=== PATIENT | female | born 1970 | race Caucasian/White ===

== ENCOUNTER 2018-08-07 10:20 | Emergency (ER) | payer BC ==
[2018-08-07 11:24] LABS: Urine Blood TRACE (NEG); Urine Glucose 2+ (NEG); Urine Protein NEGATIVE (NEG)
[2018-08-07] MEDS ORDERED: ONDANSETRON 4 MG/2 ML VIAL ONE (11:30)
[2018-08-07 11:34] LABS: Absolute Monocytes 0.6 K/uL (0.1-1.3); Absolute Neutrophil 5.8 K/uL (1.8-8.0); Basophils % 0.5 % (0-1.3); Eosinophils % 2.8 % (0-4.4); Hematocrit 41.2 % (36.0-45.0); Monocytes % 7.1 % (3.3-12.3); RBC Red Blood Cell Count 4.63 M/uL (3.86-4.86)
[2018-08-07 11:49] LABS: Urine Bacteria >50 /HPF (<20); Urine Culture Reflex Order REFLEXED
[2018-08-07 12:01] LABS: Albumin 3.8 g/dL (3.4-5.0); Bilirubin Total 0.5 mg/dL (0.2-1.0); Potassium 4.2 mmol/L (3.5-5.1); Protein, Total 7.6 g/dL (6.4-8.2)
[2018-08-07] MEDS ORDERED: CEFTRIAXONE/SWI 1gm 1 GM/10 ML SYR ONE (12:10)
--- NOTE | 2018-08-07 12:28 | EDPHYS ---
Physician Documentation [facility] Name: Vanessa Reynolds Age: 48 yrs Sex: Female : 1970 Arrival Date: 08/07/2018 Time: 10:24 Bed 17 Private MD: ED Physician Lars Garcia HPI: 08/07 12:21 This 48 yrs old Female presents to ER via Ambulatory with complaints of ps1 Dizziness, High Blood Sugar. 12:21 patient has a 3 day history of lightheadedness, congestion, and generalized fatigue. ps1 She states that she feels lightheaded when her blood sugar is elevated and her blood sugar was \R\320 this am. She is on metformin and januvia. Symptoms are not positional but just feels like she is in slow motion. Denies fever. Additionally has nausea. . 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 - Social history:: Smoking status: Patient/guardian denies using tobacco. - Ebola Screening: : Patient negative for fever greater than or equal to 101.5 degrees Fahrenheit, and additional compatible Ebola Virus Disease symptoms Patient denies exposure to infectious person Patient denies travel to an Ebola-affected area in the 21 days before illness onset No symptoms or risks identified at this time. ROS: 12:21 Eyes: Negative for injury, pain, redness, and discharge, Cardiovascular: Negative for ps1 chest pain, palpitations, and edema, Respiratory: Negative for shortness of breath, cough, wheezing, and pleuritic chest pain, Abdomen/GI: Negative for abdominal pain, nausea, vomiting, diarrhea, and constipation, MS/Extremity: Negative for injury and deformity, Skin: Negative for injury, rash, and discoloration, Neuro: Negative for headache, weakness, numbness, tingling, and seizure, Psych: Negative for depression, anxiety, suicide ideation, homicidal ideation, and hallucinations. 12:21 Constitutional: Positive for body aches, fatigue, malaise. Exam: 12:21 Constitutional: This is a well developed, well nourished patient who is awake, alert, ps1 and in no acute distress. Head/Face: Normocephalic, atraumatic. Eyes: Pupils equal round and reactive to light, extra-ocular motions intact. Lids and lashes normal. Conjunctiva and sclera are non-icteric and not injected. Chest/axilla: Normal chest wall appearance and motion. Nontender with no deformity. No lesions are appreciated. Cardiovascular: Regular rate and rhythm. No gallops, murmurs, or rubs. Normal PMI, no JVD. No pulse deficits. Respiratory: Lungs have equal breath sounds bilaterally, clear to auscultation and percussion. No rales, rhonchi or wheezes noted. No increased work of breathing, no retractions or nasal flaring. Abdomen/GI: Soft, non-tender, with normal bowel sounds. No distension or tympany. No guarding or rebound. No evidence of tenderness throughout. Skin: Warm, dry with normal turgor. Normal color with no rashes, no lesions, and no evidence of cellulitis. MS/ Extremity: Pulses equal, no cyanosis. Neurovascular intact. Full, normal range of motion. Neuro: Awake and alert, GCS 15, oriented to person, place, time, and situation. Cranial nerves II-XII grossly intact. Sensory grossly intact. HINTS exam. Mild peripheral gaze evoked nystagmus to left. No catch up saccade. No dysconjugate gaze. Vital Signs: 10:34 Weight 74.39 kg; Height 5 ft. 4 in. (162.56 cm); Pain 0/10; sg 10:34 Pulse 79; Resp 17; Temp 98.9; Pulse Ox 100% ; sg 10:36 BP 139 / 86; sg 12:45 BP 135 / 85; Pulse 75; Resp 16 S; Pulse Ox 99% on R/A; jl7 10:34 Body Mass Index 28.15 (74.39 kg, 162.56 cm) sg MDM: 11:00 Patient medically screened. ps1 12:30 Data reviewed: vital signs, nurses notes, lab test result(s), and as a result, I will ps1 discharge patient. 08/07 11:01 Order name: Flu; Complete Time: 11:49 ps1 08/07 11:01 Order name: CBC with Diff; Complete Time: 11:49 ps1 08/07 11:01 Order name: CMP; Complete Time: 12:05 ps1 08/07 11:19 Order name: Urine Dipstick--Ancillary (enter results); Complete Time: 11:29 bd 08/07 11:19 Order name: Urine --Ancillary (enter results); Complete Time: 11:29 bd 08/07 11:25 Order name: Urine Microscopic Only; Complete Time: 11:50 jl7 08/07 11:01 Order name: Urine Dipstick-Ancillary (obtain specimen); Complete Time: 11:18 ps1 08/07 11:20 Order name: Urine Test (obtain specimen); Complete Time: 11:20 bd 08/07 11:54 Order name: Urine Culture EDMS Administered Medications: 11:25 Drug: Zofran 4 mg Route: IVP; Site: right antecubital; jl7 12:00 Follow up: Response: No adverse reaction; Nausea is decreased jl7 12:04 Not Given (Wrong pharmacy order): Rocephin - (cefTRIAXone) 1 grams IVPB once over 30 jl7 mins; (mix in 50 mL NS) 12:04 Drug: Rocephin 1 grams Route: IV; Rate: calculated rate; Site: right antecubital; jl7 12:07 Follow up: Response: No adverse reaction; IV Status: Completed infusion jl7 Point of Care Testing: Blood Glucose: 10:43 Blood Glucose: 322 mg/dL; iw Ranges: Critical Glucose Levels:Adult <50 mg/dl or >400 mg/dl <40 mg/dl or >180 mg/dl Disposition: 08/07/18 12:28 Discharged to Home. Impression: Hyperglycemia, unspecified, Acute cystitis. - Condition is Stable. - Discharge Instructions: Hyperglycemia, Urinary Tract Infection, Adult. - Prescriptions for Keflex 500 mg Oral Capsule - take 1 capsule by ORAL route every 8 hours for 10 days; 30 capsule. Zofran 4 mg Oral Tablet - take 1 tablet by ORAL route every 12 hours As needed; 20 tablet. - Medication Reconciliation Form, Thank You Letter, Antibiotic Education, Prescription Opioid Use form. - Follow up: Emergency Department; When: As needed; Reason: Fever > 102 F, Worsening of condition. Follow up: Private Physician; When: As needed; Reason: Worsening of condition, Recheck today's complaints, Continuance of care, Re-evaluation by your physician. - Problem is new. - Symptoms have improved. Signatures: Dispatcher [employer] EDMS fransisco TainaKong Funez, RN RN sg Maximo Medrano RN RN jl7 Lars Garcia MD MD ps1 Corrections: (The following items were deleted from the chart) 12:28 12:28 08/07/2018 12:28 Discharged to Home. Impression: Hyperglycemia, unspecified; ps1 Acute cystitis. Condition is Stable. Forms are Medication Reconciliation Form, Thank You Letter, Antibiotic Education, Prescription Opioid Use. Follow up: Emergency Department; When: As needed; Reason: Fever > 102 F, Worsening of condition. Follow up: Private Physician; When: As needed; Reason: Worsening of condition, Recheck today's complaints, Continuance of care, Re-evaluation by your physician. ps1 12:46 12:28 08/07/2018 12:28 Discharged to Home. Impression: Hyperglycemia, unspecified; jl7 Acute cystitis. Condition is Stable. Forms are Medication Reconciliation Form, Thank You Letter, Antibiotic Education, Prescription Opioid Use. Follow up: Emergency Department; When: As needed; Reason: Fever > 102 F, Worsening of condition. Follow up: Private Physician; When: As needed; Reason: Worsening of condition, Recheck today's complaints, Continuance of care, Re-evaluation by your physician. Problem is new. Symptoms have improved. ps1
--- NOTE | 2018-08-07 12:28 | ER ---
Nurse's Notes [facility] Name: Vanessa Reynolds Age: 48 yrs Sex: Female : 1970 Arrival Date: 08/07/2018 Time: 10:24 Bed 17 Private MD: Diagnosis: Hyperglycemia, unspecified;Acute cystitis Presentation: 08/07 10:32 Presenting complaint: Patient states: Dizziness, and high blood sugar at home, 141 FSBG sg reported prior to arrival,reports taking her metformin this morning as prescribed, drank some OJ because i was coming down with something. Transition of care: patient was not received from another setting of care. Onset of symptoms was August 07, 2018. Risk Assessment: Do you want to hurt yourself or someone else? Patient reports no desire to harm self or others. Initial Sepsis Screen: Does the patient meet any 2 criteria? No. Patient's initial sepsis screen is negative. Does the patient have a suspected source of infection? No. Patient's initial sepsis screen is negative. Care prior to arrival: None. 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 - Social history:: Smoking status: Patient/guardian denies using tobacco. - Ebola Screening: : Patient negative for fever greater than or equal to 101.5 degrees Fahrenheit, and additional compatible Ebola Virus Disease symptoms Patient denies exposure to infectious person Patient denies travel to an Ebola-affected area in the 21 days before illness onset No symptoms or risks identified at this time. Screenin:10 Abuse screen: Denies threats or abuse. Denies injuries from another. Nutritional jl7 screening: No deficits noted. Tuberculosis screening: No symptoms or risk factors identified. Fall Risk IV access (20 points). Total Hatfield Fall Scale indicates No Risk (0-24 pts). Assessment: 11:10 General: Appears in no apparent distress. uncomfortable, Behavior is calm, cooperative, jl7 appropriate for age. Pain: Denies pain. Neuro: Level of Consciousness is awake, alert, obeys commands, Oriented to person, place, time, situation. Cardiovascular: Patient's skin is warm and dry. Respiratory: Airway is patent Respiratory effort is even, unlabored, Respiratory pattern is regular, symmetrical. GI: Reports nausea. : No signs and/or symptoms were reported regarding the genitourinary system. EENT: No signs and/or symptoms were reported regarding the EENT system. Derm: Skin is pink, warm \T\ dry. 12:00 Reassessment: Patient appears in no apparent distress at this time. Patient and/or jl7 family updated on plan of care and expected duration. Pain level reassessed. Patient is alert, oriented x 3, equal unlabored respirations, skin warm/dry/pink. Vital Signs: 10:34 Weight 74.39 kg; Height 5 ft. 4 in. (162.56 cm); Pain 0/10; sg 10:34 Pulse 79; Resp 17; Temp 98.9; Pulse Ox 100% ; sg 10:36 BP 139 / 86; sg 12:45 BP 135 / 85; Pulse 75; Resp 16 S; Pulse Ox 99% on R/A; jl7 10:34 Body Mass Index 28.15 (74.39 kg, 162.56 cm) sg ED Course: 10:24 Patient arrived in ED. mr 10:32 Arm band placed on. sg 10:33 Triage completed. sg 10:39 Lars Garcia MD is Attending Physician. ps1 10:50 Maximo Medrano RN is Primary Nurse. jl7 11:10 Patient has correct armband on for positive identification. Bed in low position. Call jl7 light in reach. Side rails up X 1. Pulse ox on. NIBP on. 11:10 Initial lab(s) drawn, by me, sent to lab. Urine collected: clean catch specimen, clear. jl7 Inserted saline lock: 20 gauge in right antecubital area, using aseptic technique. Blood collected. 12:45 No provider procedures requiring assistance completed. IV discontinued, intact, jl7 bleeding controlled, No redness/swelling at site. Pressure dressing applied. Administered Medications: 11:25 Drug: Zofran 4 mg Route: IVP; Site: right antecubital; jl7 12:00 Follow up: Response: No adverse reaction; Nausea is decreased jl7 12:04 Not Given (Wrong pharmacy order): Rocephin - (cefTRIAXone) 1 grams IVPB once over 30 jl7 mins; (mix in 50 mL NS) 12:04 Drug: Rocephin 1 grams Route: IV; Rate: calculated rate; Site: right antecubital; jl7 12:07 Follow up: Response: No adverse reaction; IV Status: Completed infusion jl7 Point of Care Testing: Blood Glucose: 10:43 Blood Glucose: 322 mg/dL; iw Ranges: Outcome: 12:28 Discharge ordered by . ps1 12:45 Discharged to home ambulatory. jl7 12:45 Condition: stable 12:45 Discharge instructions given to patient, family, Instructed on discharge instructions, follow up and referral plans. medication usage, Demonstrated understanding of instructions, follow-up care, medications, Prescriptions given X 2. 12:46 Patient left the ED. jl7 Addendum: 08/11/2018 07:50 Addendum: Culture Results: Positive urine culture. Phone call Attempt #[phone], unable a a5 to leave a voicemail. 08:30 Addendum: Culture Results: Prescription called-in to pharmacy of choice. to [facility] in [place], [place], Macrobid 100 mg PO BID x 10 days, stop Keflex per May Haji NP. Signatures: Kong Mcneil RN Nathaly Cochran Oanh Reynolds, RN RONEN iw Meryl Lechuga RN RN aa5 Maximo Medrano RN RN jl7 Lars Garcia MD MD ps1
[2018-08-07 12:53] VITALS: TEMP 98.9
[2018-08-07 12:56] VITALS: BP 135/85; O2SAT 99
== END 2018-08-07 12:46 | disposition home or self-care (01) ==
LOC: ER 10:20
DX: E11.65 Type 2 diabetes mellitus with hyperglycemia (principal); N30.00 Acute cystitis without hematuria; Z79.84 Long term (current) use of oral hypoglycemic drugs
CPT/HCPCS: 36415; 80053; 81003; 81015; 81025; 82962; 85025; 87077; 87086; 87088; 87186; 87804; 96374; 96375; 99284; J0696; J2405

== ENCOUNTER 2019-09-18 11:56 | Emergency (ER) | payer BC ==
[2019-09-18] MEDS ORDERED: NA CHLORIDE 0.9% 1,000 ML ONE (14:04)
[2019-09-18] MEDS ORDERED: FENTANYL CITR 100 MCG/2 ML ONE ×2 (14:05→14:42)
[2019-09-18] MEDS ORDERED: ONDANSETRON 4 MG/2 ML VIAL ONE (14:05)
[2019-09-18 14:20] LABS: Absolute Lymphocytes (CBC) 2.1 K/uL (0.7-4.9); Basophils % 0.5 % (0-1.3); Hematocrit 35.2 % (36.0-45.0); Lymphocytes % 27.9 % (15.3-44.8); RBC Red Blood Cell Count 3.94 M/uL (3.86-4.86)
--- NOTE | 2019-09-18 14:21 | RAD REPORT ---
EXAM DESCRIPTION: CT - Abdomen Pelvis Wo Contrast - 09/18/2019 2:10 pm CLINICAL HISTORY: abd pain COMPARISON: No comparisons TECHNIQUE: Axial [address] imaging of the abdomen and pelvis was performed without IV contrast. No IV contrast was given because of allergy, abnormal renal function, patient refusal or physician re quest. No oral contrast administered. All CT scans are performed using dose optimization technique as appropriate and may include automated exposure control or mA/KV adjustment according to patient size. FINDINGS: No suspicious findings in the lung bases. The liver, spleen and pancreas show no suspicious findings on non-contrast imaging. Cholecystectomy c lips are present. No biliary tree dilatation. No hydronephrosis or suspicious renal mass. No significant adrenal finding. Isodense renal masses an d pyelonephritis cannot be excluded in the absence of IV contrast. The urinary bladder is without sig nificant finding. Uterus is slightly lobulated probably due to small fibroids. No worrisome uterine f inding. No suspicious ovarian finding. No dilated bowel loops or bowel wall thickening. Moderate stool volume seen through most of the colon . No active colon process seen. Within the peritoneal and retroperitoneal spaces there is no hematoma , mass, abscess or other suspicious finding. No peritoneal or retroperitoneal free air. Postsurgical changes are present at the lumbosacral junction. A few punctate air densities are presen t in the subcutaneous fatty tissues of the lower abdomen. There is a 7 centimeter low-density mass in the subcutaneous fatty tissues between the skin and abdominal wall. Attenuation value is 7 Hounsfiel d units. There is no air within this collection. Postoperative seroma is most likely. A secondarily i nfected seroma is possible. Congested or edematous fat is seen in the lower abdomen. Similar fluid or low-density collections are present post oral lateral lumbosacral spine both measuring approximately 4 cm. Again, no air within these collections. IMPRESSION: A 7 centimeter fluid or low-density collection is present in the infraumbilical subcutan eous fatty tissues at the surgical entry site. A few punctate air densities are present in the subcut aneous fat on the superior margin of this collection. The 7 centimeter collection is most likely a postoperative seroma. Secondary infection of the seroma cannot be excluded. Similar density 4 centimeter collections are present posterior lateral aspect of the lumbosacral spin e in the subacute fatty tissues. Postoperative seromas are most likely as well. Again there is no air within either of these collections. Within the peritoneal and retroperitoneal spaces there is no abscess, air, hematoma or other concerni ng finding. Full assessment is limited is the absence of IV contrast.
[2019-09-18 14:32] LABS: Potassium 4.5 mmol/L (3.5-5.1)
--- NOTE | 2019-09-18 16:28 | EDPHYS ---
Physician Documentation [facility] Name: Vanessa Young Age: 49 yrs Sex: Female : 1970 Arrival Date: 09/18/2019 Time: 11:59 Bed 8 Private MD: ED Physician Nguyễn Cortes HPI: 09/18 13:36 This 49 yrs old Female presents to ER via Wheelchair with complaints of kdr Incisional Drainage, Dizziness, Nausea. 16:57 The patient had back surgery last week and now has mild abdominal pain with drainage kdr from the anterior abdominal incision. She denies fever, chills, nausea or vomiting. Onset: The symptoms/episode began/occurred gradually, 2 day(s) ago. Severity of symptoms: At their worst the symptoms were mild in the emergency department the symptoms are unchanged. The patient has not experienced similar symptoms in the past. The patient has been recently seen by a physician: last week for the surgery. 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 - Coronavirus screen:: The patient has NOT traveled to [place] in the past 14 days. Proceed with normal triage process as indicated. - Social history:: Smoking status: Patient denies any tobacco usage or history of. - Ebola Screening: : Patient negative for fever greater than or equal to 101.5 degrees Fahrenheit, and additional compatible Ebola Virus Disease symptoms Patient denies exposure to infectious person Patient denies travel to an Ebola-affected area in the 21 days before illness onset No symptoms or risks identified at this time. ROS: 16:57 Constitutional: Negative for fever, chills, and weight loss, Eyes: Negative for injury, kdr pain, redness, and discharge, ENT: Negative for injury, pain, and discharge, Neck: Negative for injury, pain, and swelling, Cardiovascular: Negative for chest pain, palpitations, and edema, Respiratory: Negative for shortness of breath, cough, wheezing, and pleuritic chest pain, : Negative for injury, bleeding, discharge, and swelling, MS/Extremity: Negative for injury and deformity, Skin: Negative for injury, rash, and discoloration, Neuro: Negative for headache, weakness, numbness, tingling, and seizure activity. Psych: Negative for depression, anxiety, suicide ideation, homicidal ideation, and hallucinations, Allergy/Immunology: Negative for hives, rash, and allergies, Endocrine: Negative for neck swelling, polydipsia, polyuria, polyphagia, and marked weight changes, Hematologic/Lymphatic: Negative for swollen nodes, abnormal bleeding, and unusual bruising. 16:57 Abdomen/GI: Positive for abdominal pain, The patient has a midline incision that is well approximated and has some small amount of drainage on the dressing. I was not able to express any purulent drainage from the incision. 16:57 Back: Positive for Two vertical incisions lateral to the spine that are well healing kdr and without any evidence of infection. Exam: 16:57 Constitutional: This is a well developed, well nourished patient who is awake, alert, kdr and in no acute distress. Head/Face: Normocephalic, atraumatic. Eyes: Pupils equal round and reactive to light, extra-ocular motions intact. Lids and lashes normal. Conjunctiva and sclera are non-icteric and not injected. Cornea within normal limits. Periorbital areas with no swelling, redness, or edema. Neck: Trachea midline, no thyromegaly or masses palpated, and no cervical lymphadenopathy. Supple, full range of motion without nuchal rigidity, or vertebral point tenderness. No Meningismus. Chest/axilla: Normal chest wall appearance and motion. Nontender with no deformity. No lesions are appreciated. Cardiovascular: Regular rate and rhythm with a normal S1 and S2. No gallops, murmurs, or rubs. Normal PMI, no JVD. No pulse deficits. Respiratory: Lungs have equal breath sounds bilaterally, clear to auscultation and percussion. No rales, rhonchi or wheezes noted. No increased work of breathing, no retractions or nasal flaring. Skin: Warm, dry with normal turgor. Normal color with no rashes, no lesions, and no evidence of cellulitis. MS/ Extremity: Pulses equal, no cyanosis. Neurovascular intact. Full, normal range of motion. Neuro: Awake and alert, GCS 15, oriented to person, place, time, and situation. Cranial nerves II-XII grossly intact. Motor strength 5/5 in all extremities. Sensory grossly intact. Cerebellar exam normal. Normal gait. Psych: Awake, alert, with orientation to person, place and time. Behavior, mood, and affect are within normal limits. 16:57 Abdomen/GI: Inspection: abdomen appears normal, scar(s), are noted in the suprapubic area, Bowel sounds: normal, active, Palpation: soft, mild abdominal tenderness, Gwendolyn-incisional. Vital Signs: 12:28 BP 93 / 55; Pulse 102; Resp 16; Temp 97.7; Pulse Ox 99% on R/A; Weight 72.57 kg; Height iw 5 ft. 4 in. (162.56 cm); Pain 9/10; 12:34 BP 122 / 78; Pulse 96; Resp 16; Pulse Ox 100% on R/A; hb 13:30 BP 108 / 73; Pulse 88; Resp 14; Pulse Ox 96% ; hb 15:00 BP 125 / 75; Pulse 81; Resp 15; Pulse Ox 98% ; Pain 7/10; hb 12:28 Body Mass Index 27.46 (72.57 kg, 162.56 cm) iw MDM: 14:25 Patient medically screened. snw 16:57 Data reviewed: vital signs, nurses notes, lab test result(s), radiologic studies. kdr Counseling: I had a detailed discussion with the patient and/or guardian regarding: the historical points, exam findings, and any diagnostic results supporting the discharge/admit diagnosis, lab results, radiology results, the need for outpatient follow up. 09/18 13:30 Order name: CBC with Diff kdr 09/18 13:30 Order name: Chem 7 kdr 09/18 13:30 Order name: Blood Culture Adult (2) kdr 09/18 13:30 Order name: Procalcitonin kdr 09/18 13:30 Order name: Lactate kdr 09/18 14:27 Order name: CBC with Automated Diff; Complete Time: 14:57 EDLA 09/18 13:30 Order name: CT Abd/Pelvis - Without Contrast kdr 09/18 14:33 Order name: Lactate; Complete Time: 14:57 EDLA 09/18 14:33 Order name: Basic Metabolic Panel; Complete Time: 14:57 EDLA 09/18 14:34 Order name: Abdomen ; Complete Time: 14:57 EDLA 09/18 14:48 Order name: Procalcitonin EDLA 09/18 14:48 Order name: Blood Culture EDLA 09/18 14:48 Order name: Blood Culture EDLA Administered Medications: 14:05 Drug: fentaNYL (PF) 50 mcg Route: IVP; Site: right antecubital; hb 14:30 Follow up: Response: No adverse reaction; RASS: Alert and Calm (0) hb 14:05 Drug: Zofran 4 mg Route: IVP; Site: right antecubital; hb 14:30 Follow up: Response: No adverse reaction; RASS: Alert and Calm (0) hb 14:11 Drug: NS 0.9% 1000 ml Route: IV; Rate: 1 bolus; Site: right antecubital; hb 15:25 Follow up: Response: No adverse reaction; IV Status: Completed infusion; IV Intake: hb 1000ml 14:42 Drug: fentaNYL (PF) 50 mcg Route: IVP; Site: right antecubital; hb 15:20 Follow up: Response: No adverse reaction; RASS: Alert and Calm (0) hb Disposition: 09/18/19 15:27 Discharged to Home. Impression: Abdominal and pelvic pain, Post-Op Incisional Pain. - Condition is Fair. - Prescriptions for Keflex 500 mg Oral Capsule - take 1 capsule by ORAL route every 6 hours for 7 days; 28 capsule. - Medication Reconciliation Form, Thank You Letter, Antibiotic Education, Prescription Opioid Use form. - Follow up: Private Physician; When: 2 - 3 days; Reason: If symptoms return, Further diagnostic work-up, Recheck today's complaints, Continuance of care, Re-evaluation by your physician. - Problem is new. - Symptoms have improved. Signatures: Dispatcher [employer] [facility] Nguyễn Cortes MD MD kdr Therrien, Shelly, TRAVERTINE INSTALLER-C TRAVERTINE INSTALLER-Csnw Oanh Reynolds RN RN iw Yolette Jimenez RN RN Corrections: (The following items were deleted from the chart) 15:51 15:27 09/18/2019 15:27 Discharged to Home. Impression: Abdominal and pelvic pain; hb Post-Op Incisional Pain. Condition is Fair. Forms are Medication Reconciliation Form, Thank You Letter, Antibiotic Education, Prescription Opioid Use. Follow up: Private Physician; When: 2 - 3 days; Reason: If symptoms return, Further diagnostic work-up, Recheck today's complaints, Continuance of care, Re-evaluation by your physician. Problem is new. Symptoms have improved. kdr
--- NOTE | 2019-09-18 16:28 | ER ---
Nurse's Notes [facility] Name: Vanessa Young Age: 49 yrs Sex: Female : 1970 Arrival Date: 09/18/2019 Time: 11:59 Bed 8 Private MD: Diagnosis: Abdominal and pelvic pain;Post-Op Incisional Pain Presentation: 09/18 12:22 Presenting complaint: Patient states: had back surgery last Monday, sutures in front iw are infected and she feels dizzy and nauseous, surgery was done by Dr. House in [place], has office in . Transition of care: patient was not received from another setting of care. Onset of symptoms was September 18, 2019. Risk Assessment: Do you want to hurt yourself or someone else? Patient reports no desire to harm self or others. Initial Sepsis Screen: Does the patient meet any 2 criteria? No. Patient's initial sepsis screen is negative. Does the patient have a suspected source of infection? Yes: Skin breakdown/wound. Care prior to arrival: was seen Dr. 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 - Coronavirus screen:: The patient has NOT traveled to [place] in the past 14 days. Proceed with normal triage process as indicated. - Social history:: Smoking status: Patient denies any tobacco usage or history of. - Ebola Screening: : Patient negative for fever greater than or equal to 101.5 degrees Fahrenheit, and additional compatible Ebola Virus Disease symptoms Patient denies exposure to infectious person Patient denies travel to an Ebola-affected area in the 21 days before illness onset No symptoms or risks identified at this time. Screenin:46 Abuse screen: Denies threats or abuse. Denies injuries from another. Nutritional hb screening: No deficits noted. Tuberculosis screening: No symptoms or risk factors identified. Fall Risk None identified. Assessment: 12:40 General: Appears in no apparent distress. Behavior is calm, cooperative. Pain: Pain hb currently is 9 out of 10 on a pain scale. Neuro: Level of Consciousness is awake, alert, obeys commands, Oriented to person, place, time, situation. Cardiovascular: Capillary refill < 3 seconds Patient's skin is warm and dry. Respiratory: Airway is patent Respiratory effort is even, unlabored, Respiratory pattern is regular, symmetrical. GI: Abdomen is obese, surgical wound with intact sutures noted to lower abdomen. : No signs and/or symptoms were reported regarding the genitourinary system. EENT: No signs and/or symptoms were reported regarding the EENT system. Derm: Skin is pink, warm \T\ dry. Musculoskeletal: No signs and/or symptoms reported regarding the musculoskeletal system. 13:30 Reassessment: Patient appears in no apparent distress at this time. Patient and/or hb family updated on plan of care and expected duration. Pain level reassessed. Patient is alert, oriented x 3, equal unlabored respirations, skin warm/dry/pink. 14:45 Reassessment: Pt returned from CT, reports pain 8-9/10. Dr. Cortes notified, repeat hb fentanyl administered as ordered. 15:30 Reassessment: Patient appears in no apparent distress at this time. Patient and/or hb family updated on plan of care and expected duration. Pain level reassessed. Patient is alert, oriented x 3, equal unlabored respirations, skin warm/dry/pink. Vital Signs: 12:28 BP 93 / 55; Pulse 102; Resp 16; Temp 97.7; Pulse Ox 99% on R/A; Weight 72.57 kg; Height iw 5 ft. 4 in. (162.56 cm); Pain 9/10; 12:34 BP 122 / 78; Pulse 96; Resp 16; Pulse Ox 100% on R/A; hb 13:30 BP 108 / 73; Pulse 88; Resp 14; Pulse Ox 96% ; hb 15:00 BP 125 / 75; Pulse 81; Resp 15; Pulse Ox 98% ; Pain 7/10; hb 12:28 Body Mass Index 27.46 (72.57 kg, 162.56 cm) iw ED Course: 11:59 Patient arrived in ED. as 12:20 Nguyễn Cortes MD is Attending Physician. kdr 12:25 Triage completed. iw 12:28 Arm band placed on. iw 12:45 Patient has correct armband on for positive identification. Placed in gown. Bed in low hb position. Call light in reach. Side rails up X 1. 13:45 Inserted saline lock: 20 gauge in right antecubital area, using aseptic technique. hb ,using aseptic technique. by Diane Blood collected. 14:08 Yolette Jimenez, RONEN is Primary Nurse. hb 15:50 No provider procedures requiring assistance completed. IV discontinued, intact, hb bleeding controlled, No redness/swelling at site. Pressure dressing applied. Administered Medications: 14:05 Drug: fentaNYL (PF) 50 mcg Route: IVP; Site: right antecubital; hb 14:30 Follow up: Response: No adverse reaction; RASS: Alert and Calm (0) hb 14:05 Drug: Zofran 4 mg Route: IVP; Site: right antecubital; hb 14:30 Follow up: Response: No adverse reaction; RASS: Alert and Calm (0) hb 14:11 Drug: NS 0.9% 1000 ml Route: IV; Rate: 1 bolus; Site: right antecubital; hb 15:25 Follow up: Response: No adverse reaction; IV Status: Completed infusion; IV Intake: hb 1000ml 14:42 Drug: fentaNYL (PF) 50 mcg Route: IVP; Site: right antecubital; hb 15:20 Follow up: Response: No adverse reaction; RASS: Alert and Calm (0) hb Outcome: 15:27 Discharge ordered by . kdr 15:50 Discharged to home via wheelchair, with significant other. hb 15:50 Condition: stable 15:50 Discharge instructions given to patient, significant other, Instructed on discharge instructions, follow up and referral plans. medication usage, Demonstrated understanding of instructions, follow-up care, medications, Prescriptions given X 1. 15:51 Patient left the ED. hb Signatures: Nguyễn Cortes MD MD kdr Anum Farrell Irene RN RN iw Yolette Jimenez, RN RN hb
[2019-09-18 16:49] VITALS: TEMP 97.7
[2019-09-18 16:52] VITALS: BP 125/75; O2SAT 98
== END 2019-09-18 15:51 | disposition home or self-care (01) ==
LOC: ER 11:56
DX: G89.18 Other acute postprocedural pain (principal); I10 Essential (primary) hypertension; E11.9 Type 2 diabetes mellitus without complications; Z79.4 Long term (current) use of insulin; Z88.1 Allergy status to other antibiotic agents
CPT/HCPCS: 96361; 87040 ×2; 85025; 80048; 36415; 83605; 84145; 74176; 96375; 96374; 99284; J3010 ×2; J7030; J2405

== ENCOUNTER 2019-09-25 08:32 | Emergency (ER) | payer BC ==
[2019-09-25] MEDS ORDERED: ONDANSETRON 4 MG/2 ML VIAL ONE (10:09)
[2019-09-25] MEDS ORDERED: FENTANYL CITR 100 MCG/2 ML ONE ×2 (10:09→11:11)
[2019-09-25] MEDS ORDERED: METHYLPREDNISOLONE 125 MG INJ ONE (10:09)
--- NOTE | 2019-09-25 10:56 | RAD REPORT ---
EXAM DESCRIPTION: CTSpine Lumbar Wo Con09/25/2019 10:26 am CLINICAL HISTORY: Back surgery with back pain COMPARISON: None TECHNIQUE: Computed axial tomography lumbar spine was obtained with coronal and sagittal reconstruct ion. All CT scans are performed using dose optimization technique as appropriate and may include automated exposure control or mA/KV adjustment according to patient size. FINDINGS: No fracture is seen. No dislocation is noted. Bone plug, pedicular screws united by rods and anterior screws have been placed L5/S1. Artifact from the hardware obscures detail somewhat. It appears that a portion of the bone plug and osteophyte abut the left S1 nerve root. Neural foramina are patent IMPRESSION: Negative for a lumbar fracture. Postsurgical changes involving L5-S1. It appears that a portion of the bone plug and osteophyte abut the left S1 nerve root. If clinically indicated further evaluation with MRI may be helpful
[2019-09-25 11:10] LABS: Absolute Lymphocytes (CBC) 2.3 K/uL (0.7-4.9); Basophils % 0.4 % (0-1.3); Hematocrit 33.8 % (36.0-45.0); Lymphocytes % 25.2 % (15.3-44.8); RBC Red Blood Cell Count 3.83 M/uL (3.86-4.86)
[2019-09-25 11:23] LABS: BUN Blood Urea Nitrogen 20 mg/dL (7-18); Bicarbonate 24 mmol/L (21-32); Glucose Level 200 mg/dL (74-106); Potassium 4.7 mmol/L (3.5-5.1); Sodium Level 138 mmol/L (136-145)
[2019-09-25] MEDS ORDERED: KETOROLAC 30 MG/ML INJ ONE (12:50)
--- NOTE | 2019-09-25 13:50 | RAD REPORT ---
EXAM DESCRIPTION: MRI - Lumbar Spine Wo Con- 09/25/2019 1:40 pm CLINICAL HISTORY: Pain radiating down both legs;Pain COMPARISON: Spine Lumbar Wo Con dated 09/25/2019 FINDINGS: Vertebral body heights are within normal limits. No aggressive marrow pattern is observed. No fracture is suspected. The conus medullaris terminates at a normal level. No thickening of the cauda equina or clumping of n erve roots seen. L1-2 level: No significant findings. L2-3 level: No significant findings. L3-4 level: No significant findings. L4-5 level: No significant findings. L5-S1 level: Postsurgical changes are present with mild blooming artifact. No canal or foraminal sten osis seen. IMPRESSION: Postsurgical changes at L5-S1 without acute or unexpected finding.
--- NOTE | 2019-09-25 14:42 | EDPHYS ---
Physician Documentation [facility] Name: Vanessa Young Age: 49 yrs Sex: Female : 1970 Arrival Date: 09/25/2019 Time: 08:36 Bed 13 Private MD: ED Physician Nguyễn Cortes HPI: 09/25 07:29 This 49 yrs old Female presents to ER via Ambulatory with complaints of Back kdr Pain, Leg Pain. 07:29 The patient presents with pain that is acute, and tenderness. The symptoms are located kdr in the low back. Onset: The symptoms/episode began/occurred gradually, 2 week(s) ago. The pain radiates to the right hamstring, posterior aspect of right knee, right calf, right Achilles, right heel, left gluteal fold, left hamstring, posterior aspect of left knee, left calf, left Achilles and left heel. Associated signs and symptoms: The patient has no apparent associated signs or symptoms. The problem was sustained The patient is two weeks s/p lumbar surgery. She was seen here last week for similar problem and was evaluated and discharged. The patient continues to have discomfort with apparent worsening of her pain radiating down both legs. She denies any change in bowel or bladder control. Modifying factors: The patient symptoms are alleviated by nothing, the patient symptoms are aggravated by any movement. Severity of symptoms: At their worst the symptoms were moderate, in the emergency department the symptoms are unchanged. The patient has not experienced similar symptoms in the past. The patient has not recently seen a physician. 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 - Social history:: Smoking status: Patient denies any tobacco usage or history of. ROS: 09/25 07:29 Constitutional: Negative for fever, chills, and weight loss, Eyes: Negative for injury, kdr pain, redness, and discharge, Neck: Negative for injury, pain, and swelling, Cardiovascular: Negative for chest pain, palpitations, and edema, Respiratory: Negative for shortness of breath, cough, wheezing, and pleuritic chest pain, Abdomen/GI: Negative for abdominal pain, nausea, vomiting, diarrhea, and constipation, : Negative for injury, bleeding, discharge, and swelling, MS/Extremity: Negative for injury and deformity, Skin: Negative for injury, rash, and discoloration, Neuro: Negative for headache, weakness, numbness, tingling, and seizure activity. Psych: Negative for depression, anxiety, suicide ideation, homicidal ideation, and hallucinations, Allergy/Immunology: Negative for hives, rash, and allergies, Endocrine: Negative for neck swelling, polydipsia, polyuria, polyphagia, and marked weight changes, Hematologic/Lymphatic: Negative for swollen nodes, abnormal bleeding, and unusual bruising. Back: Positive for pain at rest, pain with movement, radiated pain, of the low back area. Exam: 07:29 Constitutional: This is a well developed, well nourished patient who is awake, alert, kdr and in mild distress. Head/Face: Normocephalic, atraumatic. Eyes: Pupils equal round and reactive to light, extra-ocular motions intact. Lids and lashes normal. Conjunctiva and sclera are non-icteric and not injected. Cornea within normal limits. Periorbital areas with no swelling, redness, or edema. Neck: Trachea midline, no thyromegaly or masses palpated, and no cervical lymphadenopathy. Supple, full range of motion without nuchal rigidity, or vertebral point tenderness. No Meningismus. Chest/axilla: Normal chest wall appearance and motion. Nontender with no deformity. No lesions are appreciated. Cardiovascular: Regular rate and rhythm with a normal S1 and S2. No gallops, murmurs, or rubs. Normal PMI, no JVD. No pulse deficits. Respiratory: Lungs have equal breath sounds bilaterally, clear to auscultation and percussion. No rales, rhonchi or wheezes noted. No increased work of breathing, no retractions or nasal flaring. Abdomen/GI: Soft, non-tender, with normal bowel sounds. No distension or tympany. No guarding or rebound. No evidence of tenderness throughout. Well healing incisions Back: No spinal tenderness. No costovertebral tenderness. Full range of motion.. Well healing incisions Skin: Warm, dry with normal turgor. Normal color with no rashes, no lesions, and no evidence of cellulitis. MS/ Extremity: Pulses equal, no cyanosis. Neurovascular intact. Full, normal range of motion. Neuro: Awake and alert, GCS 15, oriented to person, place, time, and situation. Cranial nerves II-XII grossly intact. Motor strength 5/5 in all extremities. Sensory grossly intact. Cerebellar exam normal. Normal gait. Psych: Awake, alert, with orientation to person, place and time. Behavior, mood, and affect are within normal limits. Vital Signs: 09/24 09:05 BP 119 / 78; Pulse 94; Resp 19; Temp 98; Pulse Ox 96% ; Weight 72.57 kg; Height 5 ft. 4 bp in. (162.56 cm); 10:00 BP 130 / 85; Pulse 88; Resp 17; Pulse Ox 98% ; bp 11:13 BP 129 / 79; Pulse 86; Resp 16; Pulse Ox 94% ; bp 12:16 BP 107 / 58; Pulse 80; Resp 17; Pulse Ox 95% ; bp 12:49 BP 126 / 89; Pulse 86; Resp 16; Pulse Ox 95% ; bp 13:51 BP 119 / 63; Pulse 87; Resp 16; Pulse Ox 95% ; bp 15:01 BP 133 / 85; Pulse 89; Resp 17; Temp 98; Pulse Ox 95% ; bp 09:05 Body Mass Index 27.46 (72.57 kg, 162.56 cm) bp MDM: 14:40 Patient medically screened. kdr 09/25 07:29 Data reviewed: vital signs, nurses notes, lab test result(s), radiologic studies. kdr Counseling: I had a detailed discussion with the patient and/or guardian regarding: the historical points, exam findings, and any diagnostic results supporting the discharge/admit diagnosis, lab results, radiology results, the need for outpatient follow up. 09/24 10:07 Order name: CBC with Diff; Complete Time: 11:37 bp 09/24 10:07 Order name: BMP; Complete Time: 11:37 bp 09/24 10:07 Order name: Lactate; Complete Time: 11:37 bp 09/24 10:07 Order name: CT Lumbar Spine Wo Con; Complete Time: 11:37 bp 09/24 12:08 Order name: MRI Lumbar Spine wo Con; Complete Time: 14:39 kdr Administered Medications: 09/24 10:16 Drug: Zofran (Ondansetron) 4 mg Route: IVP; Site: right forearm; bp 12:48 Follow up: Response: Nausea is decreased bp 10:16 Drug: SOLU-Medrol 125 mg Route: IVP; Site: right forearm; bp 12:48 Follow up: Response: No adverse reaction bp 10:17 Drug: fentaNYL (PF) 50 mcg Route: IVP; Site: right forearm; bp 12:48 Follow up: Response: Pain is decreased bp 11:12 Drug: fentaNYL (PF) 50 mcg Route: IVP; Site: right forearm; bp 12:48 Follow up: Response: Pain is decreased bp 12:49 Drug: Ketorolac 15 mg Route: IVP; Site: right forearm; bp 15:24 Follow up: Response: Pain is decreased bp Disposition: 09/25/19 14:40 Discharged to Home. Impression: Low back pain. - Condition is Stable. - Discharge Instructions: Musculoskeletal Pain, Back Pain, Adult, [id number]. - Medication Reconciliation Form, Thank You Letter form. - Follow up: Private Physician; When: 2 - 3 days; Reason: If symptoms return, Further diagnostic work-up, Recheck today's complaints, Continuance of care, Re-evaluation by your physician. - Problem is an ongoing problem. - Symptoms have improved. Signatures: Dispatcher [employer] EDMI Nguyễn Cortes MD MD kdr Chase Cabrera, RN RN bp Corrections: (The following items were deleted from the chart) 15:24 14:40 09/25/2019 14:40 Discharged to Home. Impression: Low back pain. Condition is bp Stable. Forms are Medication Reconciliation Form, Thank You Letter, Antibiotic Education, Prescription Opioid Use. Follow up: Private Physician; When: 2 - 3 days; Reason: If symptoms return, Further diagnostic work-up, Recheck today's complaints, Continuance of care, Re-evaluation by your physician. Problem is an ongoing problem. Symptoms have improved. kdr
--- NOTE | 2019-09-25 14:42 | ER ---
Nurse's Notes [facility] Name: Vanessa Young Age: 49 yrs Sex: Female : 1970 Arrival Date: 09/25/2019 Time: 08:36 Bed 13 Private MD: Diagnosis: Low back pain Presentation: 09/24 09:05 Chief complaint: Patient states: INCREASING PAIN IN LUMBAR 2 WK POST BACK SX. bp Coronavirus screen: The patient has NOT traveled to a country currently being monitored by the CDC within the last 14 days. The patient has NOT had contact with any known and/or suspected case of coronavirus. Ebola Screen: No symptoms or risks identified at this time. Initial Sepsis Screen: Does the patient meet any 2 criteria? HR > 90 bpm. Does the patient have a suspected source of infection? No. Patient's initial sepsis screen is negative. Risk Assessment: Do you want to hurt yourself or someone else? Patient reports no desire to harm self or others. 09:05 Method Of Arrival: Ambulatory bp 09:05 Acuity: CLIFFORD 4 bp Triage Assessment: 09:05 General: Appears in no apparent distress. uncomfortable, obese, Behavior is bp cooperative, appropriate for age, anxious. Pain: Complains of pain in low back area. EENT: No deficits noted. Neuro: No deficits noted. Cardiovascular: No deficits noted. Respiratory: No deficits noted. GI: No signs and/or symptoms were reported involving the gastrointestinal system. : No signs and/or symptoms were reported regarding the genitourinary system. Derm: No deficits noted. Musculoskeletal: Circulation, motion, and sensation intact. Range of motion: intact in all extremities. 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 - Social history:: Smoking status: Patient denies any tobacco usage or history of. Screenin:08 Abuse screen: Denies threats or abuse. Denies injuries from another. Nutritional bp screening: No deficits noted. Tuberculosis screening: No symptoms or risk factors identified. Fall Risk None identified. Assessment: 09:08 General: SEE TRIAGE NOTE. Neuro: Level of Consciousness is awake, alert, obeys bp commands, Oriented to person, place, time, situation, Appropriate for age Moves all extremities. Full function Gait is steady. 10:17 Reassessment: PT TO CT. bp 11:14 Reassessment: ALL CURRENT ORDERS COMPLETED, CONTACT WITH PT ORTHO SURGEON DR KANCHAN so [facility], , PENDING. 12:49 Reassessment: PT TO MRI WITH [employer]. bp 13:51 Reassessment: PT RETURNED FROM MRI. NO RESPONSE FROM ORTHO AT THIS TIME. bp 15:22 Reassessment: PT D/C HOME AMBULATORY WITH FAMILY, DX WITH LOW BACK PAIN. bp Vital Signs: 09:05 BP 119 / 78; Pulse 94; Resp 19; Temp 98; Pulse Ox 96% ; Weight 72.57 kg; Height 5 ft. 4 bp in. (162.56 cm); 10:00 BP 130 / 85; Pulse 88; Resp 17; Pulse Ox 98% ; bp 11:13 BP 129 / 79; Pulse 86; Resp 16; Pulse Ox 94% ; bp 12:16 BP 107 / 58; Pulse 80; Resp 17; Pulse Ox 95% ; bp 12:49 BP 126 / 89; Pulse 86; Resp 16; Pulse Ox 95% ; bp 13:51 BP 119 / 63; Pulse 87; Resp 16; Pulse Ox 95% ; bp 15:01 BP 133 / 85; Pulse 89; Resp 17; Temp 98; Pulse Ox 95% ; bp 09:05 Body Mass Index 27.46 (72.57 kg, 162.56 cm) bp ED Course: 08:36 Patient arrived in ED. bd 09:03 Chase Cabrera, RONEN is Primary Nurse. bp 09:06 Triage completed. bp 09:08 Nguyễn Cortes MD is Attending Physician. kdr 09:08 Arm band placed on. bp 09:08 Patient has correct armband on for positive identification. Bed in low position. Call bp light in reach. Side rails up X2. Adult w/ patient. Pulse ox on. NIBP on. 10:16 Inserted saline lock: 22 gauge in right forearm, using aseptic technique. Blood bp collected. 10:25 CT Lumbar Spine Wo Con In Process Unspecified. EDMS 13:13 Patient moved to MRI via wheelchair. em2 13:16 MRI Lumbar Spine wo Con In Process Unspecified. EDMS 13:37 MRI completed. Patient tolerated well. Patient moved back from MRI. em2 15:22 No provider procedures requiring assistance completed. IV discontinued, intact, bp bleeding controlled, No redness/swelling at site. Pressure dressing applied. Administered Medications: 10:16 Drug: Zofran (Ondansetron) 4 mg Route: IVP; Site: right forearm; bp 12:48 Follow up: Response: Nausea is decreased bp 10:16 Drug: SOLU-Medrol 125 mg Route: IVP; Site: right forearm; bp 12:48 Follow up: Response: No adverse reaction bp 10:17 Drug: fentaNYL (PF) 50 mcg Route: IVP; Site: right forearm; bp 12:48 Follow up: Response: Pain is decreased bp 11:12 Drug: fentaNYL (PF) 50 mcg Route: IVP; Site: right forearm; bp 12:48 Follow up: Response: Pain is decreased bp 12:49 Drug: Ketorolac 15 mg Route: IVP; Site: right forearm; bp 15:24 Follow up: Response: Pain is decreased bp Outcome: 14:40 Discharge ordered by . kdr 15:22 Discharged to home ambulatory, with family. bp 15:22 Condition: stable 15:22 Discharge instructions given to patient, Instructed on discharge instructions, follow up and referral plans. Demonstrated understanding of instructions, follow-up care, medications. 15:24 Patient left the ED. bp Signatures: Dispatcher [employer] EDMS Taina Fair Kevin, MD MD kdr Montes, Enrique em2 Chase Cabrera RN RN bp
[2019-09-25 15:34] VITALS: TEMP 98
[2019-09-25 15:38] VITALS: O2SAT 95
[2019-09-25 15:42] VITALS: BP 133/85
== END 2019-09-25 15:24 | disposition home or self-care (01) ==
LOC: ER 08:32
DX: M54.5 Low back pain (principal); I10 Essential (primary) hypertension; E11.8 Type 2 diabetes mellitus with unspecified complications; F41.9 Anxiety disorder, unspecified; Z79.4 Long term (current) use of insulin; Z88.1 Allergy status to other antibiotic agents; Z88.0 Allergy status to penicillin
CPT/HCPCS: 85025; 80048; 36415; 83605; 72131; 72148; 96375; 96374; 99284; J3010 ×2; J2930; J2405

== ENCOUNTER 2019-11-19 10:44 | Emergency (ER) | payer BC ==
[2019-11-19 11:37] LABS: Urine Blood TRACE (NEG); Urine Glucose NEGATIVE (NEG); Urine Protein NEGATIVE (NEG); Urine Specific Gravity 1.015 (1.005-1.030); Urine pH 6.5 (5.0-7.0)
[2019-11-19 12:37] LABS: Absolute Lymphocytes (CBC) 2.3 K/uL (0.7-4.9); Basophils % 0.4 % (0-1.3); Hematocrit 35.8 % (36.0-45.0); MPV 8.3 fL (7.6-11.3); RBC Red Blood Cell Count 4.08 M/uL (3.86-4.86)
--- NOTE | 2019-11-19 12:37 | RAD REPORT ---
EXAM DESCRIPTION: US - Transvaginal Study Probe - 11/19/2019 12:04 pm CLINICAL HISTORY: Vaginal bleeding;Pain Preliminary findings provided at the time of the study. COMPARISON: No comparisons TECHNIQUE: Endovaginal sonography was performed. FINDINGS: Uterus is normal size. Uterus is 9 cm in length. No myometrial mass is identified. Endomet rium is 10 mm in thickness. No discrete endometrial mass or polyp identified. No fluid or blood in th e endometrial cavity. Small nabothian cyst is identified. Right ovary could not be identified. No right adnexal mass seen. Normal size left ovary shows normal blood flow within the stroma. No left adnexal mass. No blood or fluid in the cul de sac. IMPRESSION: No uterine, left ovarian or left adnexal abnormality seen. Nonvisualization of the right ovary due to bowel. No right adnexal mass seen.
[2019-11-19 12:50] LABS: BUN Blood Urea Nitrogen 14 mg/dL (7-18); Bicarbonate 27 mmol/L (21-32); Glucose Level 182 mg/dL (74-106); Potassium 4.1 mmol/L (3.5-5.1); Sodium Level 140 mmol/L (136-145)
[2019-11-19] MEDS ORDERED: FENTANYL CITR 100 MCG/2 ML ONE (13:17)
--- NOTE | 2019-11-19 13:51 | EDPHYS ---
Physician Documentation [facility] Name: Vanessa Young Age: 49 yrs Sex: Female : 1970 Arrival Date: 11/19/2019 Time: 10:47 Bed 8 Private MD: ED Physician Tez Damian HPI: 11/18 12:42 This 49 yrs old Female presents to ER via Ambulatory with complaints of jr8 Pelvic Pain. 12:42 The patient presents with pelvic pain, the pain does not radiate, the pain is described jr8 as dull. Onset: The symptoms/episode began/occurred gradually. Modifying factors: The symptoms are alleviated by nothing, the symptoms are aggravated by nothing. Associated signs and symptoms: Pertinent positives: vaginal bleeding. Severity of symptoms: At their worst the symptoms were mild, in the emergency department the symptoms are unchanged. The patient has not experienced similar symptoms in the past. The patient has been recently seen by a physician:. Patient stated that she has recently been seen by PCP and was put on Abx for pelvic pain. Stated that she has had abnormal uterine bleeding and continued pelvic pain. Had normal PAP smear. Sent to ED for continued pelvic pain . 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 - Social history:: Smoking status: Patient denies any tobacco usage or history of. ROS: 12:42 Eyes: Negative for injury, pain, redness, and discharge, ENT: Negative for injury, jr8 pain, and discharge, Neck: Negative for injury, pain, and swelling, Cardiovascular: Negative for chest pain, palpitations, and edema, Respiratory: Negative for shortness of breath, cough, wheezing, and pleuritic chest pain, Abdomen/GI: Negative for abdominal pain, nausea, vomiting, diarrhea, and constipation, Back: Negative for injury and pain, MS/Extremity: Negative for injury and deformity, Skin: Negative for injury, rash, and discoloration, Neuro: Negative for headache, weakness, numbness, tingling, and seizure. 12:42 : Positive for pelvic pain, vaginal bleeding, vaginal discharge. Exam: 12:42 Eyes: Pupils equal round and reactive to light, extra-ocular motions intact. Lids and jr8 lashes normal. Conjunctiva and sclera are non-icteric and not injected. Cornea within normal limits. Periorbital areas with no swelling, redness, or edema. ENT: Nares patent. No nasal discharge, no septal abnormalities noted. Tympanic membranes are normal and external auditory canals are clear. Oropharynx with no redness, swelling, or masses, exudates, or evidence of obstruction, uvula midline. Mucous membranes moist. Neck: Trachea midline, no thyromegaly or masses palpated, and no cervical lymphadenopathy. Supple, full range of motion without nuchal rigidity, or vertebral point tenderness. No Meningismus. Cardiovascular: Regular rate and rhythm with a normal S1 and S2. No gallops, murmurs, or rubs. Normal PMI, no JVD. No pulse deficits. Respiratory: Lungs have equal breath sounds bilaterally, clear to auscultation and percussion. No rales, rhonchi or wheezes noted. No increased work of breathing, no retractions or nasal flaring. Abdomen/GI: Soft, non-tender, with normal bowel sounds. No distension or tympany. No guarding or rebound. No evidence of tenderness throughout. Back: No spinal tenderness. No costovertebral tenderness. Full range of motion. Skin: Warm, dry with normal turgor. Normal color with no rashes, no lesions, and no evidence of cellulitis. MS/ Extremity: Pulses equal, no cyanosis. Neurovascular intact. Full, normal range of motion. Neuro: Awake and alert, GCS 15, oriented to person, place, time, and situation. Cranial nerves II-XII grossly intact. Motor strength 5/5 in all extremities. Sensory grossly intact. Cerebellar exam normal. Normal gait. Vital Signs: 10:55 BP 129 / 81; Pulse 84; Resp 16; Temp 98.2; Pulse Ox 100% on R/A; Weight 87.54 kg; iw Height 5 ft. 4 in. (162.56 cm); Pain 9/10; 11:30 BP 145 / 62; Pulse 77; Resp 16; Pulse Ox 97% ; sv 12:30 BP 125 / 77; Pulse 72; Resp 16; Pulse Ox 98% ; sv 10:55 Body Mass Index 33.13 (87.54 kg, 162.56 cm) iw MDM: 11:06 Patient medically screened. 8 13:48 Data reviewed: vital signs, nurses notes, lab test result(s), radiologic studies, jr8 ultrasound. Data interpreted: Pulse oximetry: on room air is 98 %. Interpretation: normal. Counseling: I had a detailed discussion with the patient and/or guardian regarding: the historical points, exam findings, and any diagnostic results supporting the discharge/admit diagnosis, lab results, radiology results, the need for outpatient follow up, an OB/Gyne specialist, to return to the emergency department if symptoms worsen or persist or if there are any questions or concerns that arise at home. ED course: Patient feeling better. No acute findings on labs or imaging. Reassessed abdomen which feels fine per patient. Offered pelvic exam since I have not had direct visualization of painful area. Stated that her PCP has done 3 now without findings. Told her that this is ok and that I will refer to gynecology at this time. If worse to come back. Patient good with this plan . 11/18 11:21 Order name: Urine Dipstick--Ancillary (enter results); Complete Time: 11:41 em1 11/18 11:21 Order name: Urine --Ancillary (enter results); Complete Time: 11:41 [facility] 11/18 11:29 Order name: CBC with Diff; Complete Time: 12:41 8 11/18 11:29 Order name: Basic Metabolic Panel; Complete Time: 12:51 8 11/18 11:29 Order name: US Transvaginal Study (Probe); Complete Time: 12:41 8 11/18 11:29 Order name: Urine Test (obtain specimen); Complete Time: 12:35 jr8 11/18 11:29 Order name: Urine Dipstick-Ancillary (obtain specimen); Complete Time: 12:35 [facility] Administered Medications: 13:15 Drug: fentaNYL (PF) 50 mcg Route: IVP; Site: right antecubital; iw 14:20 Follow up: Response: No adverse reaction; RASS: Alert and Calm (0) sv Disposition: 15:23 Co-signature as Attending Physician, Tez Damian MD. rn Disposition: 11/19/19 13:50 Discharged to Home. Impression: Pelvic and perineal pain. - Condition is Stable. - Discharge Instructions: Pelvic Pain, Female. - Medication Reconciliation Form, Thank You Letter, Antibiotic Education, Prescription Opioid Use form. - Follow up: Abhishek Zendejas MD; When: 2 - 3 days; Reason: Recheck today's complaints, Continuance of care, Re-evaluation by your physician. - Problem is new. - Symptoms have improved. Signatures: Dispatcher [employer] EDSara Lamb RN RN sv Williams, Irene, RN RN iw Nieto, Roman, MD MD rn Roszak, Josh, JAZZY PURCELL jr8 Corrections: (The following items were deleted from the chart) 13:55 12:58 Pelvic Exam Setup ordered. jr8 14:46 13:50 11/19/2019 13:50 Discharged to Home. Impression: Pelvic and perineal pain. sv Condition is Stable. Forms are Medication Reconciliation Form, Thank You Letter, Antibiotic Education, Prescription Opioid Use. Follow up: Abhishek Zendejas; When: 2 - 3 days; Reason: Recheck today's complaints, Continuance of care, Re-evaluation by your physician. Problem is new. Symptoms have improved. jr8
--- NOTE | 2019-11-19 13:51 | ER ---
Nurse's Notes [facility] Name: Vanessa Young Age: 49 yrs Sex: Female : 1970 Arrival Date: 11/19/2019 Time: 10:47 Bed 8 Private MD: Diagnosis: Pelvic and perineal pain Presentation: 11/18 10:55 Chief complaint: Patient states: went to PCP yesterday and had pelvic exam, is having iw cervical pain that is worsening and has been on abx for cervical infection, nothing is working, PCP wants an US done, was seen by DR. Ryan. Coronavirus screen: Proceed with normal triage. Patient denies a cough. Patient denies shortness of breath or difficulty breathing. Patient denies measured and/or subjective temperature greater than 100.4F prior to today's visit. Patient denies travel on a cruise ship or to a country the [facility] [place]NOTE 2] currently lists as an affected area. Patient denies contact with known and/or suspected case of COVID-19. Ebola Screen: Patient negative for fever greater than or equal to 101.5 degrees Fahrenheit, and additional compatible Ebola Virus Disease symptoms Patient denies exposure to infectious person. Patient denies travel to an Ebola-affected area in the 21 days before illness onset. No symptoms or risks identified at this time. Initial Sepsis Screen: Does the patient meet any 2 criteria? No. Patient's initial sepsis screen is negative. Does the patient have a suspected source of infection? No. Patient's initial sepsis screen is negative. Risk Assessment: Do you want to hurt yourself or someone else? Patient reports no desire to harm self or others. Onset of symptoms was August 2019. 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 - Social history:: Smoking status: Patient denies any tobacco usage or history of. Screenin:15 Abuse screen: Denies threats or abuse. Denies injuries from another. Nutritional sv screening: No deficits noted. Tuberculosis screening: No symptoms or risk factors identified. Fall Risk None identified. Assessment: 11:30 General: Appears in no apparent distress. uncomfortable, Behavior is calm, cooperative, sv appropriate for age. Pain: Complains of pain in suprapubic area Pain currently is 9 out of 10 on a pain scale. Neuro: Level of Consciousness is awake, alert, obeys commands, Oriented to person, place, time, situation, Gait is steady. Respiratory: Respiratory effort is even, unlabored, Respiratory pattern is regular, symmetrical. Derm: Skin is pink, warm \T\ dry. 14:20 Reassessment: Patient appears in no apparent distress at this time. No changes from sv previously documented assessment. Patient and/or family updated on plan of care and expected duration. Pain level reassessed. Patient is alert, oriented x 3, equal unlabored respirations, skin warm/dry/pink. Vital Signs: 10:55 BP 129 / 81; Pulse 84; Resp 16; Temp 98.2; Pulse Ox 100% on R/A; Weight 87.54 kg; iw Height 5 ft. 4 in. (162.56 cm); Pain 9/10; 11:30 BP 145 / 62; Pulse 77; Resp 16; Pulse Ox 97% ; sv 12:30 BP 125 / 77; Pulse 72; Resp 16; Pulse Ox 98% ; sv 10:55 Body Mass Index 33.13 (87.54 kg, 162.56 cm) iw ED Course: 10:47 Patient arrived in ED. as 10:58 Triage completed. iw 10:59 Arm band placed on. iw 11:03 Jt Whitman PA is PHCP. jr8 11:03 Tez Damian MD is Attending Physician. jr8 11:04 Maximo Medrano, RONEN is Primary Nurse. jl7 11:06 Jt Whitman PA is PHCP. jr8 11:06 Tez Damian MD is Attending Physician. jr8 11:15 Patient has correct armband on for positive identification. Bed in low position. Call sv light in reach. Pulse ox on. NIBP on. Door closed. Head of bed elevated. 12:04 US Transvaginal Study (Probe) In Process Unspecified. EDMS 12:30 Initial lab(s) drawn, by me, sent to lab. Inserted saline lock: 20 gauge in right kj1 antecubital area, using aseptic technique. Blood collected. 12:35 Basic Metabolic Panel Sent. kj1 12:35 CBC with Diff Sent. kj1 13:50 Abhishek Zendejas MD is Referral Physician. jr8 14:20 No provider procedures requiring assistance completed. IV discontinued, intact, sv bleeding controlled, No redness/swelling at site. Pressure dressing applied. Administered Medications: 13:15 Drug: fentaNYL (PF) 50 mcg Route: IVP; Site: right antecubital; iw 14:20 Follow up: Response: No adverse reaction; RASS: Alert and Calm (0) sv Outcome: 13:50 Discharge ordered by . jr8 14:20 Patient left the ED. sv 14:20 Discharged to home ambulatory. sv 14:20 Condition: stable 14:20 Discharge instructions given to patient, Instructed on discharge instructions, follow up and referral plans. Demonstrated understanding of instructions, follow-up care. Signatures: Dispatcher [employer] EDSara Lamb RN RN Anum Farrell Irene, RN RN Jt Whitman, JAZZY PA jr8 Maximo Medrano RN RN jl7 Nolvia Basilio kj1 Corrections: (The following items were deleted from the chart) 15:00 14:46 Patient left the ED. sv sv
[2019-11-19 14:54] VITALS: TEMP 98.2
[2019-11-19 15:03] VITALS: BP 125/77; O2SAT 98
== END 2019-11-19 14:46 | disposition home or self-care (01) ==
LOC: ER 10:44
DX: R10.2 Pelvic and perineal pain (principal); N93.9 Abnormal uterine and vaginal bleeding, unspecified; I10 Essential (primary) hypertension; Z88.0 Allergy status to penicillin; Z88.1 Allergy status to other antibiotic agents
CPT/HCPCS: 85025; 80048; 36415; 81025; 81003; 76830; 96374; 99284; J3010

== ENCOUNTER 2020-03-23 09:41 | Emergency (ER) | payer BC ==
[2020-03-23 10:59] LABS: Absolute Lymphocytes (CBC) 2.3 K/uL (0.7-4.9); Basophils % 0.5 % (0-1.3); Hematocrit 36.2 % (36.0-45.0); Lymphocytes % 37.1 % (15.3-44.8); MPV 8.6 fL (7.6-11.3); RBC Red Blood Cell Count 4.19 M/uL (3.86-4.86)
[2020-03-23] MEDS ORDERED: IBUPROFEN 400 MG TAB ONE (10:59)
[2020-03-23 11:10] LABS: Protime INR 0.91
--- NOTE | 2020-03-23 11:11 | EDPHYS ---
Physician Documentation [facility] Name: Vanessa Young Age: 49 yrs Sex: Female : 1970 Arrival Date: 03/23/2020 Time: 09:42 Bed 13 Private MD: ED Physician Tez Damian HPI: 03/23 10:09 This 49 yrs old Female presents to ER via Wheelchair with complaints of rn Overdose, Suicidal Ideation. 10:09 The patient presents to the emergency department after a known overdose. Associated rn signs and symptoms: Pertinent negatives: incontinence, shortness of breath, visual hallucinations. Severity of symptoms: At their worst the symptoms were mild in the emergency department the symptoms are unchanged. The patient has not experienced similar symptoms in the past. Reports father in dying, "marriage is falling apart", took 60 diazepam, unknown strength, last night around 9 pm, feels "groggy", but otherwise ok. No fever. No head injury. Reports ingestion was suicide attempt. No previous suicide attempt. Wants help, is voluntary. . 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 - Social history:: Smoking status: Patient reports the use of cigarette tobacco products, denies chronic smoking, but will smoke occasionally, Patient uses alcohol, occasionally. Patient/guardian denies using street drugs. - Family history:: not pertinent. - Hospitalizations: : No recent hospitalization is reported. ROS: 10:09 Constitutional: Negative for fever, chills, and weight loss, Cardiovascular: Negative rn for chest pain, palpitations, and edema, Respiratory: Negative for shortness of breath, cough, wheezing, and pleuritic chest pain, Abdomen/GI: Negative for abdominal pain, nausea, vomiting, diarrhea, and constipation, MS/Extremity: Negative for injury and deformity, Skin: Negative for injury, rash, and discoloration, Neuro: Negative for headache, weakness, numbness, tingling, and seizure, Psych: Negative for homicidal ideation, and hallucinations Exam: 10:09 Constitutional: This is a well developed, well nourished patient who is awake, alert, rn and in no acute distress, tearful Head/Face: Normocephalic, atraumatic. Eyes: Pupils equal round and reactive to light, extra-ocular motions intact. Lids and lashes normal. Conjunctiva and sclera are non-icteric and not injected. Cornea within normal limits. Periorbital areas with no swelling, redness, or edema. Cardiovascular: Regular rate and rhythm. No pulse deficits. Respiratory: No increased work of breathing, no retractions or nasal flaring. Abdomen/GI: soft, non-tender Skin: Warm, dry MS/ Extremity: Pulses equal, no cyanosis. Neurovascular intact. Full, normal range of motion. Equal circumference. Neuro: Awake and alert, GCS 15 Vital Signs: 09:46 BP 100 / 63; Pulse 78; Resp 16; Temp 97.2(O); Pulse Ox 98% on R/A; mh5 09:47 BP 117 / 72; Pulse 84; Resp 16; Temp 97.8; Pulse Ox 97% on R/A; Weight 79.38 kg; Height iw 5 ft. 4 in. (162.56 cm); 11:00 BP 104 / 72; Pulse 68; Resp 16; Pulse Ox 98% on R/A; mh5 11:15 BP 112 / 71; Pulse 58; Resp 16; Pulse Ox 99% on R/A; mh5 12:10 BP 99 / 71; Pulse 63; Resp 16; Pulse Ox 96% on R/A; jr10 13:00 BP 99 / 55; Pulse 68; Resp 18; Temp 97.5(O); Pulse Ox 97% on R/A; mh5 13:29 BP 100 / 60; Pulse 67; Resp 18; Pulse Ox 97% on R/A; Pain 0/10; jr10 14:01 BP 99 / 53; Pulse 67; Resp 16; Pulse Ox 95% on R/A; mh5 15:51 BP 101 / 67; Pulse 66; Resp 14; Pulse Ox 98% on R/A; mh5 17:12 BP 109 / 69; Pulse 56; Resp 16; Pulse Ox 99% on R/A; Pain 0/10; jr10 09:47 Body Mass Index 30.04 (79.38 kg, 162.56 cm) iw MDM: 10:01 Patient medically screened. rn 11:09 Differential diagnosis: Ingestion/exposure to Overdose of benzodiazepines. Data rn reviewed: vital signs, nurses notes, lab test result(s), EKG, and as a result, I will admit patient. Counseling: I had a detailed discussion with the patient and/or guardian regarding: the historical points, exam findings, and any diagnostic results supporting the discharge/admit diagnosis, lab results, the need to transfer to another facility, for higher level of care, [facility] does not immediately have the required specialist. Response to treatment: the patient's symptoms have mildly improved after treatment, and as a result, I will admit patient. ED course: Pt voluntary, medically cleared as > 12 hours after ingestion, stable vitals, reports suicidal ideation and attempt. Will transfer to psychiatric facility. . 14:41 ED course: Accepted for transfer to [facility]. rn 03/23 10:08 Order name: Acetaminophen; Complete Time: 14:38 rn 03/23 10:08 Order name: Basic Metabolic Panel; Complete Time: 14:38 rn 03/23 10:08 Order name: CBC with Diff; Complete Time: 11:09 rn 03/23 10:08 Order name: ETOH Level; Complete Time: 14:38 rn 03/23 10:08 Order name: Hepatic Function; Complete Time: 14:38 rn 03/23 10:08 Order name: PT-INR; Complete Time: 14:38 rn 03/23 10:08 Order name: Ptt, Activated; Complete Time: 14:38 rn 03/23 10:08 Order name: Salicylate; Complete Time: 14:38 rn 03/23 10:08 Order name: Urine Drug Screen; Complete Time: 14:38 rn 03/23 12:55 Order name: Urine Dipstick--Ancillary (enter results); Complete Time: 14:38 bd 03/23 12:55 Order name: Urine --Ancillary (enter results); Complete Time: 14:38 bd 03/23 10:08 Order name: Urine Test (obtain specimen); Complete Time: 12:53 rn 03/23 10:08 Order name: EKG; Complete Time: 10:09 rn 03/23 10:08 Order name: EKG - Nurse/Tech; Complete Time: 11:10 rn 03/23 10:08 Order name: IV Saline Lock; Complete Time: 10:47 rn 03/23 10:08 Order name: Labs collected and sent; Complete Time: 10:47 rn 03/23 10:08 Order name: Urine Dipstick-Ancillary (obtain specimen); Complete Time: 12:52 rn 03/23 11:27 Order name: Diet Finger Food; Complete Time: 11:28 [facility] Administered Medications: 10:09 CANCELLED (Duplicate Order): [place] 5 mg-325 mg 1 tabs PO once; RASS on ADMIN: Combtv4, rn Very Agttd3, Agttd2, Rstlss1, AlertClm0, Drwsy-1, Lt Sdtn-2, Mod Sdtn-3, Dp Sdtn-4, UnArsble-5 10:54 Drug: Motrin 800 mg Route: PO; 10 11:10 Follow up: Response: No adverse reaction 10 14:50 Drug: Macrobid 100 mg Route: PO; jr10 17:07 Follow up: Response: No adverse reaction 10 Disposition: 03/23/20 11:11 Transfer ordered to Psych Facility. Diagnosis are Suicidal ideations, Intentional overdose - Benzodiazepines . - Reason for transfer: Higher level of care. - Accepting physician is Dr. Terrell. - Condition is Stable. - Problem is new. - Symptoms are unchanged. Signatures: Dispatcher [employer] EDOanh Negrete, RN Tez Cornelius MD MD rn Calderon, Audri RN RN aa5 Cynthia Valentin, RN RN jr10 Corrections: (The following items were deleted from the chart) 10: 10:08 [place] 5 mg-325 mg 1 tabs PO once; RASS on ADMIN: Combtv4, Very Agttd3, Agttd2, rn Rstlss1, AlertClm0, Drwsy-1, Lt Sdtn-2, Mod Sdtn-3, Dp Sdtn-4, UnArsble-5 ordered. rn 14:42 11:11 03/23/2020 11:11 Transfer ordered to Psych Facility. Diagnosis is Suicidal rn ideations; Intentional overdose - Benzodiazepines . Reason for transfer: Higher level of care. Accepting physician is . Condition is Stable. Problem is new. Symptoms are unchanged. rn 17:29 14:42 03/23/2020 11:11 Transfer ordered to Psych Facility. Diagnosis is Suicidal aa5 ideations; Intentional overdose - Benzodiazepines . Reason for transfer: Higher level of care. Accepting physician is Dr. Terrell. Condition is Stable. Problem is new. Symptoms are unchanged. rn
--- NOTE | 2020-03-23 11:11 | ER ---
Nurse's Notes [facility] Name: Vanessa Young Age: 49 yrs Sex: Female : 1970 Arrival Date: 03/23/2020 Time: 09:42 Bed 13 Private MD: Diagnosis: Suicidal ideations;Intentional overdose - Benzodiazepines Presentation: 03/23 09:47 Chief complaint: Patient states: took about 60 diazepam last night around 9 pm, unknown iw mg, was trying to kill herself, has been depressed recently, her dad is dying and marriage is falling apart, spent $50,000 on repairs for a house for her dad, it's just all too much, no previous attempts. Coronavirus screen: At this time, the client does not indicate any symptoms associated with coronavirus-19. Ebola Screen: Patient negative for fever greater than or equal to 101.5 degrees Fahrenheit, and additional compatible Ebola Virus Disease symptoms Patient denies exposure to infectious person. Patient denies travel to an Ebola-affected area in the 21 days before illness onset. No symptoms or risks identified at this time. Initial Sepsis Screen: Does the patient meet any 2 criteria? No. Patient's initial sepsis screen is negative. Does the patient have a suspected source of infection? No. Patient's initial sepsis screen is negative. Risk Assessment: Do you want to hurt yourself or someone else? Patient reports no desire to harm self or others. Onset of symptoms was March 22, 2020. 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 - Social history:: Smoking status: Patient reports the use of cigarette tobacco products, denies chronic smoking, but will smoke occasionally, Patient uses alcohol, occasionally. Patient/guardian denies using street drugs. - Family history:: not pertinent. - Hospitalizations: : No recent hospitalization is reported. Screenin:40 Abuse screen: Denies threats or abuse. Denies injuries from another. Nutritional jr10 screening: No deficits noted. Tuberculosis screening: No symptoms or risk factors identified. Fall Risk IV access (20 points). Assessment: 10:40 General: Appears in no apparent distress. Behavior is calm, cooperative, Denies fever, jr10 feeling ill, fatigue, chills. Pain: Complains of pain in back Pain began chronic. Neuro: No deficits noted. Level of Consciousness is awake, alert, obeys commands, Oriented to person, place, time, situation, Appropriate for age Speech is normal, Pupils are PERRLA, Reports blurred vision Denies dizziness. Cardiovascular: No deficits noted. Denies chest pain. Respiratory: Airway is patent Respiratory effort is even, unlabored, Respiratory pattern is regular, symmetrical, Breath sounds are clear bilaterally. Denies cough, shortness of breath. GI: No deficits noted. No signs and/or symptoms were reported involving the gastrointestinal system. Patient currently denies nausea, vomiting. : No deficits noted. No signs and/or symptoms were reported regarding the genitourinary system. EENT: No deficits noted. No signs and/or symptoms were reported regarding the EENT system. Derm: No deficits noted. No signs and/or symptoms reported regarding the dermatologic system. Musculoskeletal: No deficits noted. No signs and/or symptoms reported regarding the musculoskeletal system. 11:00 Reassessment: Sitter at bedside for one to one observation of high risk patient, see jr10 paper charting for sitter assessment. Psych: 10:40 Subjective: Patient's mood is sad, Delusions are denied, Hallucinations are denied jr10 Having thoughts of suicide. Plan for suicide is pt reports taking 60# diazepam last night at approx 2100 with the intention of going to sleep and not waking up; pt unsure of mg dosage of diazepam. Objective: Patient is cooperative, Speech is normal, Affect is flat. Interventions: Removed personal items and placed in bag. Patient placed in hospital gown. Searched person for dangerous items. Belonging list filled out. Suicide Risk Assessment: Sad Person Scale: Sex of patient: Female: Score 0 points. Age of patient: Score 0 point if patient falls outside of specified age parameters. Depression: Score 1 point if signs of depression are present. Previous Attempt: Score 0 point if patient has not previously attempted suicide. Substance Abuse: Score 0 point if patient does not abuse alcohol or drugs. Rational Thinking: Score 1 point if patient is lacking rational thinking. Social Support: Score 1 point if social support is lacking and/or unavailable. Organized Plan: Score 1 point if patient had a plan in place. Relationship: Score 0 point if patient has a spouse or domestic partner. Chronic Sickness: Score 0 point if patient does not have a chronic illness, debilitating, or severe disorder. TOTAL POINTS: If total points are 3-4, proposed clinical action is close follow-up/consider hospitalization. Safety Checks: Personal items have been removed. 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 Pt denies substance abuse. 17:13 Commitment: Patient will be a voluntary commitment. jr10 Overdose: 12:09 Patient took 60# diazepam, unsure of dosage. Overdose occurred more than 10 hours ago. jr10 Vital Signs: 09:46 BP 100 / 63; Pulse 78; Resp 16; Temp 97.2(O); Pulse Ox 98% on R/A; mh5 09:47 BP 117 / 72; Pulse 84; Resp 16; Temp 97.8; Pulse Ox 97% on R/A; Weight 79.38 kg; Height iw 5 ft. 4 in. (162.56 cm); 11:00 BP 104 / 72; Pulse 68; Resp 16; Pulse Ox 98% on R/A; mh5 11:15 BP 112 / 71; Pulse 58; Resp 16; Pulse Ox 99% on R/A; mh5 12:10 BP 99 / 71; Pulse 63; Resp 16; Pulse Ox 96% on R/A; jr10 13:00 BP 99 / 55; Pulse 68; Resp 18; Temp 97.5(O); Pulse Ox 97% on R/A; mh5 13:29 BP 100 / 60; Pulse 67; Resp 18; Pulse Ox 97% on R/A; Pain 0/10; jr10 14:01 BP 99 / 53; Pulse 67; Resp 16; Pulse Ox 95% on R/A; mh5 15:51 BP 101 / 67; Pulse 66; Resp 14; Pulse Ox 98% on R/A; mh5 17:12 BP 109 / 69; Pulse 56; Resp 16; Pulse Ox 99% on R/A; Pain 0/10; jr10 09:47 Body Mass Index 30.04 (79.38 kg, 162.56 cm) ED Course: 09:42 Patient arrived in ED. as 09:50 Triage completed. iw 10:00 Safety checks: Items removed: yes. Door open/sign placed on door: yes. Family/friend [facility] present: no. Sitter present: Yes. Patient has correct armband on for positive identification. Placed in gown. Bed in low position. Side rails up X 1. Valuables inventory done. See valuables checklist. TAKEN BY SECURITY. Warm blanket given. teletypesetter monitor on. Pulse ox on. NIBP on. 10:01 Tez Damian MD is Attending Physician. rn 10:07 Cynthia Valentin, RONEN is Primary Nurse. [facility] 10:15 EKG done, by ED staff, reviewed by Tez Damian MD. [facility] 11:20 Initial lab(s) drawn, by [facility], sent to lab. Inserted saline lock: 20 gauge in right [facility] antecubital area, using aseptic technique. Blood collected. 12:52 Urine Drug Screen Sent. 5 13:07 Diet: Patient given a regular meal tray. [facility] 13:15 faxed chart to [facility]. bd 13:21 spoke with intakes at [facility], fax was received, nurse will call back for bd report. 13:35 admit approval given at [facility], approval given by Briana Treadwell. bd 15:52 IV discontinued, intact, bleeding controlled, No redness/swelling at site. Pressure jr10 dressing applied. 17:13 No provider procedures requiring assistance completed. jr10 Administered Medications: 10:09 CANCELLED (Duplicate Order): Clinton 5 mg-325 mg 1 tabs PO once; RASS on ADMIN: Combtv4, rn Very Agttd3, Agttd2, Rstlss1, AlertClm0, Drwsy-1, Lt Sdtn-2, Mod Sdtn-3, Dp Sdtn-4, UnArsble-5 10:54 Drug: Motrin 800 mg Route: PO; jr10 11:10 Follow up: Response: No adverse reaction jr10 14:50 Drug: Macrobid 100 mg Route: PO; jr10 17:07 Follow up: Response: No adverse reaction jr10 Outcome: 11:11 ER care complete, transfer ordered by . rn 17:12 Transferred by ground EMS [facility] Transfer jr10 form completed. 17:12 Condition: improved 17:12 Instructed on the need for transfer, Demonstrated understanding of instructions. 17:29 Patient left the ED. [facility] Signatures: Taina Fair Amelia as Williams, Irene, RN RN iw Nieto, Roman, MD MD rn Calderon, Audri, RN RN [facility] Rubia Farrell Cynthia Mackey RN RN jr10 Corrections: (The following items were deleted from the chart) 11:31 08:46 BP 100 / 63; Pulse 78bpm; Resp 16bpm; Pulse Ox 98% RA; Temp 97.2F Oral; [place] [id number] 12:35 10:15 EKG done, [place] [id number] 17:14 15:52 IV discontinued, Pressure dressing applied, [place] [id number]
[2020-03-23 11:19] LABS: ALT/SGPT 26 U/L (12-78); AST/SGOT 10 U/L (15-37); Albumin 3.4 g/dL (3.4-5.0); Alkaline Phosphatase 77 U/L (45-117); BUN Blood Urea Nitrogen 11 mg/dL (7-18); Bicarbonate 27 mmol/L (21-32); Bilirubin Direct 0.1 mg/dL (0-0.2); Bilirubin Total 0.5 mg/dL (0.2-1.0); Glucose Level 117 mg/dL (74-106); Potassium 3.5 mmol/L (3.5-5.1); Protein, Total 7.3 g/dL (6.4-8.2); Sodium Level 141 mmol/L (136-145)
[2020-03-23 13:14] LABS: Urine Blood 1+ (NEG); Urine Glucose TRACE (NEG); Urine Protein NEGATIVE (NEG); Urine Specific Gravity 1.015 (1.005-1.030); Urine pH 5.5 (5.0-7.0)
[2020-03-23 13:20] LABS: Barbiturates NEGATIVE (NEGATIVE); Benzodiazepines POSITIVE (NEGATIVE); Cocaine NEGATIVE (NEGATIVE); METHAMPHETAM POSITIVE (NEGATIVE); Methadone NEGATIVE (NEGATIVE); Opiates NEGATIVE (NEGATIVE); Phencyclidine NEGATIVE (NEGATIVE); THC Cannibis NEGATIVE (NEGATIVE)
[2020-03-23] MEDS ORDERED: NITROFURAN MACRO 100 MG CAP PO ONE (14:59)
[2020-03-26 10:59] VITALS: TEMP 97.5
[2020-03-26 11:05] VITALS: BP 109/69; O2SAT 99
== END 2020-03-23 17:29 ==
LOC: ER 09:41
DX: T42.4X2A Poisoning by benzodiazepines, intentional self-harm, initial encounter (principal); I10 Essential (primary) hypertension; E11.9 Type 2 diabetes mellitus without complications; F41.9 Anxiety disorder, unspecified; Z88.0 Allergy status to penicillin; Z88.1 Allergy status to other antibiotic agents
CPT/HCPCS: 36415; 80048; 80076; 80307; 80320; 80329; 81003; 81025; 85025; 85610; 85730; 93005; 99285

== ENCOUNTER 2020-09-23 10:24 | Observation (INO) | payer BC ==
[2020-09-23] MEDS ORDERED: ONDANSETRON 4 MG/2 ML VIAL ONE (11:33)
--- NOTE | 2020-09-23 11:55 | RAD REPORT ---
EXAM DESCRIPTION: CT - Ct Stroke Brain Wo Cont - 09/23/2020 10:55 am CLINICAL HISTORY: Syncope;Mental status change;Hemiplegia CVA symptomology COMPARISON: No comparisons TECHNIQUE: All CT scans are performed using dose optimization technique as appropriate and may inclu de automated exposure control or mA/KV adjustment according to patient size. FINDINGS: No intracranial hemorrhage, hydrocephalus or extra-axial fluid collection.No areas of brai n edema or evidence of midline shift. The paranasal sinuses and mastoids are clear. The calvarium is intact. IMPRESSION: No acute intracranial abnormality. The findings were discussed with Dr Cotres in the ER on 09/23/2020 at 10:58 a.m. by telephone.
[2020-09-23 12:10] LABS: Protime INR 1.07
[2020-09-23 12:23] LABS: ALT/SGPT 29 U/L (12-78); AST/SGOT 19 U/L (15-37); Albumin 3.6 g/dL (3.4-5.0); Alkaline Phosphatase 92 U/L (45-117); BUN Blood Urea Nitrogen 12 mg/dL (7-18); Bicarbonate 22 mmol/L (21-32); Bilirubin Direct 0.2 mg/dL (0-0.2); Bilirubin Total 1.1 mg/dL (0.2-1.0); Creatine Phosphokinase 75 U/L (26-192); Glucose Level 276 mg/dL (74-106); Magnesium 2.2 mg/dL (1.8-2.4); Potassium 3.8 mmol/L (3.5-5.1); Protein, Total 7.5 g/dL (6.4-8.2); Sodium Level 136 mmol/L (136-145); Troponin (Emerg Dept Use Only) < 0.02 ng/mL (0.0-0.045)
--- NOTE | 2020-09-23 12:44 | RAD REPORT ---
EXAM DESCRIPTION: RAD - Chest Single View - 09/23/2020 11:52 am CLINICAL HISTORY: DYSPNEA Chest pain. COMPARISON: Chest Single View dated 11/23/2016 FINDINGS: Portable technique limits examination quality. The lungs are grossly clear. The heart is normal in size. No displaced fractures. IMPRESSION: No acute intrathoracic process suspected.
--- NOTE | 2020-09-23 12:46 | RAD REPORT ---
EXAM DESCRIPTION: CTSpine Lumbar Wo Con09/23/2020 12:27 pm CLINICAL HISTORY: Back injury with back pain status post fall COMPARISON: 2019 TECHNIQUE: Computed axial tomography lumbar spine was obtained with coronal and sagittal reconstruct ion. All CT scans are performed using dose optimization technique as appropriate and may include automated exposure control or mA/KV adjustment according to patient size. FINDINGS: Postsurgical changes involve L5-S1. Osteophyte, disc bulge and bone plug abuts the left S1 nerve root. Artifact from the hardware does obscure detail somewhat No fracture is seen. No dislocation. No high-grade stenosis is seen. IMPRESSION: Negative for a lumbar fracture. Postsurgical changes involve L5-S1. Osteophyte, disc bulge and bone plug abuts the left S1 nerve root .
--- NOTE | 2020-09-23 12:50 | RAD REPORT ---
EXAM DESCRIPTION: RAD - Hip Left 2 View - 09/23/2020 12:40 pm CLINICAL HISTORY: Left hip pain status post injury FINDINGS: No fracture or dislocation is seen. If the patient continues to have symptoms to suggest an occult fracture MRI would be recommended
[2020-09-23] MEDS ORDERED: FENTANYL CITR 100 MCG/2 ML ONE (12:51)
[2020-09-23 13:14] LABS: RBC Red Blood Cell Count 4.23 M/uL (3.86-4.86)
[2020-09-23 13:15] LABS: Hematocrit 35.5 % (36.0-45.0); Lymphocytes % 12.3 % (15.3-44.8); MPV 8.9 fL (7.6-11.3)
[2020-09-23 13:16] LABS: Absolute Lymphocytes (CBC) 1.4 K/uL (0.7-4.9); Basophils % 0.3 % (0-1.3)
--- NOTE | 2020-09-23 13:40 | ER ---
Nurse's Notes [facility] Name: Vanessa Young Age: 50 yrs Sex: Female : 1970 Arrival Date: 09/23/2020 Time: 10:26 Bed 13 Private MD: Diagnosis: Syncope and collapse;Transient cerebral ischemic attack, unspecified Presentation: 09/23 10:30 Chief complaint: EMS states: EMS reports a syncopal episode sometime after 0800hrs. Pt dm14 was coming out of the shower and was found on the floor. Patient had vomited as well. Pt states she thinks she got in the shower at 0830. EMS reports that initially she had weakness and slurred speech. EMS also reports that Vanessa"s sister reported to them that she is a Meth user. Patient complaining of back pain, states same is chronic. Coronavirus screen: Client denies travel out of the [place] in the last 14 days. Ebola Screen: No symptoms or risks identified at this time. Initial Sepsis Screen: Does the patient meet any 2 criteria? No. Patient's initial sepsis screen is negative. Does the patient have a suspected source of infection? No. Patient's initial sepsis screen is negative. Risk Assessment: Do you want to hurt yourself or someone else? Patient reports no desire to harm self or others. Onset of symptoms was September 23, 2020 at 09:00. 10:30 Method Of Arrival: EMS dm14 10:30 Acuity: CLIFFORD 3 dm14 Triage Assessment: 10:49 General: Appears in no apparent distress. uncomfortable, Behavior is calm, cooperative, dm14 appropriate for age. Pain: Complains of pain in Pt complaining of lower back pain. States is a chronic issue aggravated by the fall this am Pain does not radiate. Pain currently is 9 out of 10 on a pain scale. Quality of pain is described as Pain began years ago. Historical: - Allergies: 10:49 Bactrim; dm14 10:49 PENICILLINS; dm14 - Home Meds: 10:49 escitalopram oxalate 20 mg oral tab once daily [Active]; gabapentin 600 mg oral tab 1 dm14 tab 3 times per day for Neuropathic Pain [Active]; metformin 750 mg Oral Tb24 1 tab twice a day [Active]; glyburide 2.5 mg Oral tab 1 tab once daily [Active]; - PMHx: 10:49 Hypertension; Diabetes - IDDM; GERD; Depression; Anxiety; dm14 - Immunization history:: Adult Immunizations up to date. - Social history:: Smoking status: Patient reports the use of cigarette tobacco products, denies chronic smoking, but will smoke occasionally. Screenin:00 Abuse screen: Denies threats or abuse. Denies injuries from another. Nutritional dm14 screening: No deficits noted. Tuberculosis screening: No symptoms or risk factors identified. Fall Risk None identified. 13:17 Patient has been NPO before screening. The patient is alert, able to follow commands. dm14 The patient does not exhibit slurred or garbled speech The patient is not exhibiting difficulty speaking. The patient does not exhibit difficulty understanding words. The patient is able to swallow own secretions with no drooling or need for suction. Patient tolerated one teaspoon of water. No drooling, immediate coughing, gurgling, or clearing of the throat was noted. The patient tolerated 90mL of water. No drooling, immediate coughing, gurgling, or clearing of the throat was noted. The patient passed the bedside swallow screening. Oral medications may be given as ordered. Contact Physician for further diet orders. Provider notified of bedside swallow screening results: Jt PURCELL. Assessment: 11:00 Reassessment: Pt up to BR to attempt to void. While in BR began vomiting moderate dm14 amounts of bile and mucus. Urine specimen not obtained. 12:00 Reassessment: EKG completed. Then taken for CT scan. dm14 13:09 Reassessment: Blood glucose of 245 at this time. dm14 13:30 Reassessment: Pt took her own Metformin and Glyburide. Dr. ngeron. dm14 14:30 Reassessment: No changes from previously documented assessment. dm14 16:00 Reassessment: Pt awaiting admission. Talking to family on phone. States feels well at dm14 this time. Vital Signs: 10:30 BP 121 / 68; Pulse 111; Resp 18; Pulse Ox 92% ; dm14 10:30 BP 121 / 68; Pulse 111; Resp 18; Pulse Ox 92% ; dm14 12:40 BP 140 / 84; Pulse 102; Resp 18; Pulse Ox 100% ; dm14 14:30 BP 124 / 75; Pulse 107; Resp 18; Pulse Ox 100% ; dm14 15:00 BP 113 / 62; Pulse 107; Resp 18; Pulse Ox 100% ; dm14 16:00 BP 122 / 77; Pulse 113; Resp 18; Pulse Ox 100% ; dm14 NIH Stroke Scale Scores: 12:11 NIHSS Score: 0 jr8 ED Course: 10:26 Patient arrived in ED. em1 10:35 Jt Whitman PA is PHCP. jr8 10:35 Nguyễn Cortes MD is Attending Physician. jr8 10:35 Nicol Hernandez, RONEN is Primary Nurse. dm14 10:43 Triage completed. dm14 10:55 CT Stroke Brain w/o Contrast In Process Unspecified. EDMS 10:59 X-ray completed. je2 12:00 Inserted #20 gauge inserted by EMS in left AC. dm14 12:00 Patient has correct armband on for positive identification. Bed in low position. Call dm14 light in reach. Side rails up X2. 12:20 Basic Metabolic Panel Sent. sv 12:20 Magnesium Sent. sv 12:20 Troponin (emerg Dept Use Only) Sent. sv 12:20 Hepatic Function Sent. sv 12:20 CPK Sent. sv 13:14 XRAY Hip LEFT 2 view Sent. sv 13:14 CT Lumbar Spine Wo Con Sent. sv 13:14 Stroke CXR 1 View Sent. sv 13:39 Davidson Damian MD is Hospitalizing Provider. jr8 14:34 COVID-19 : Document "Date of Symptom Onset" if Symptomatic. Sent. dm14 15:10 CORONAVIRUS Sent. sv 16:00 No provider procedures requiring assistance completed. dm14 16:42 Patient admitted, IV remains in place. dm14 16:42 Report given to RONEN Caballero. dm14 17:15 Arm band placed on. dm14 Administered Medications: 12:36 Drug: fentaNYL (PF) 50 mcg Route: IVP; Site: left antecubital; dm14 15:33 Follow up: Response: No adverse reaction; Pain is decreased dm14 14:20 Drug: foLIC Acid 1 mg Route: IVPB; Site: right antecubital; dm14 15:31 Follow up: Response: No adverse reaction dm14 14:33 Drug: Aspirin 81 mg Route: PO; dm14 15:31 Follow up: Response: No adverse reaction dm14 Outcome: 13:39 Decision to Hospitalize by Provider. kathy 16:42 Admitted to Med/surg accompanied by tech, via wheelchair, room 421. dm14 16:42 Condition: stable 17:17 Patient left the ED. sv 17:22 Discharge instructions given to patient, Instructed on dm14 NIH Stroke Scale - NIH Stroke Score Date: 09/23/2020 Time: 12:11 Total Score = 0 1a. Level of Consciousness (LOC) - 0(Alert) 1b. Level of Consciousness (LOC) (Year \\T\\ Age) - 0(Both) 1c. LOC Commands (Open \\T\\ Closes Eyes/Tile Sorter) - 0(Both) 2. Best Gaze (Lateral Gaze Paresis) - 0(Normal) 3. Visual Field Loss - 0(No visual loss) 4. Facial Palsy - 0(Normal) 5a. Left Arm: Motor (10-second hold) - 0(No drift) 5b. Right Arm: Motor (10-second hold) - 0(No drift) 6a. Left Leg: Motor (5-second hold - always test supine) - 0(No drift) 6b. Right Leg: Motor (5-second hold - always test supine) - 0(No drift) 7. Limb Ataxia (finger/nose \\T\\ heel/dailey - test with eyes open) - 0(Absent) 8. Sensory Loss (pinprick arms/legs/face) - 0(Normal) 9. Best Language: Aphasia (description/naming/reading) - 0(No aphasia) 10. Dysarthria (speech clarity - read or repeat words) - 0(Normal) 11. Extinction and Inattention (visual/tactile/auditory/spatial/personal) - 0(No abnormality) Initials: kathy Signatures: Dispatcher [employer] EDSara Lamb RN RN Serafin Lucas1 Jt Whitman PA PA jr8 Evans, Jamie je2 Nicol Hernandez RN RN dm14
--- NOTE | 2020-09-23 13:40 | EDPHYS ---
Physician Documentation [facility] Name: Vanessa Young Age: 50 yrs Sex: Female : 1970 Arrival Date: 09/23/2020 Time: 10:26 Bed 13 Private MD: ED Physician Nguyễn Cortes HPI: 09/23 12:11 This 50 yrs old Female presents to ER via EMS with complaints of syncope. jr8 12:11 Patient stated that around 8 am this morning let some workers into her house. Went to jr8 go take a shower. After finishing shower started to have dizziness and tunneled vision followed by syncopal episode. Stated that next thing she remembered was EMS waking her up. EMS reports that they saw noticeable left sided weakness that now since arrival has resolved. Patient currently A\\T\\O x4 with no focal deficits. Patient this past weekend admits to alcohol and meth use as well . Severity of symptoms: At their worst the symptoms were moderate in the emergency department the symptoms have improved. The patient has not experienced similar symptoms in the past. The patient has not recently seen a physician. Historical: - Allergies: 10:49 Bactrim; dm14 10:49 PENICILLINS; dm14 - Home Meds: 10:49 escitalopram oxalate 20 mg oral tab once daily [Active]; gabapentin 600 mg oral tab 1 dm14 tab 3 times per day for Neuropathic Pain [Active]; metformin 750 mg Oral Tb24 1 tab twice a day [Active]; glyburide 2.5 mg Oral tab 1 tab once daily [Active]; - PMHx: 10:49 Hypertension; Diabetes - IDDM; GERD; Depression; Anxiety; dm14 - Immunization history:: Adult Immunizations up to date. - Social history:: Smoking status: Patient reports the use of cigarette tobacco products, denies chronic smoking, but will smoke occasionally. ROS: 12:11 Neck: Negative for injury, pain, and swelling, Cardiovascular: Negative for chest pain, jr8 palpitations, and edema, Respiratory: Negative for shortness of breath, cough, wheezing, and pleuritic chest pain, Abdomen/GI: Negative for abdominal pain, nausea, vomiting, diarrhea, and constipation. 12:11 Back: Positive for pain at rest, pain with movement, of the low back area. 12:11 MS/extremity: Positive for pain, of the left leg. 12:11 Neuro: Positive for dizziness, syncope, weakness. 12:11 All other systems are negative. Exam: 12:11 Head/Face: Normocephalic, atraumatic. Eyes: Pupils equal round and reactive to light, jr8 extra-ocular motions intact. Lids and lashes normal. Conjunctiva and sclera are non-icteric and not injected. Cornea within normal limits. Periorbital areas with no swelling, redness, or edema. ENT: Nares patent. No nasal discharge, no septal abnormalities noted. Tympanic membranes are normal and external auditory canals are clear. Oropharynx with no redness, swelling, or masses, exudates, or evidence of obstruction, uvula midline. Mucous membranes moist. Neck: Trachea midline, no thyromegaly or masses palpated, and no cervical lymphadenopathy. Supple, full range of motion without nuchal rigidity, or vertebral point tenderness. No Meningismus. Chest/axilla: Normal chest wall appearance and motion. Nontender with no deformity. No lesions are appreciated. Cardiovascular: Regular rate and rhythm with a normal S1 and S2. No gallops, murmurs, or rubs. Normal PMI, no JVD. No pulse deficits. Respiratory: Lungs have equal breath sounds bilaterally, clear to auscultation and percussion. No rales, rhonchi or wheezes noted. No increased work of breathing, no retractions or nasal flaring. Abdomen/GI: Soft, non-tender, with normal bowel sounds. No distension or tympany. No guarding or rebound. No evidence of tenderness throughout. Skin: Warm, dry with normal turgor. Normal color with no rashes, no lesions, and no evidence of cellulitis. Neuro: Awake and alert, GCS 15, oriented to person, place, time, and situation. Cranial nerves II-XII grossly intact. Motor strength 5/5 in all extremities. Sensory grossly intact. Cerebellar exam normal. Normal gait. 12:11 Back: pain, that is mild, of the low back area, ROM is painful, normal spinal alignment noted, vertebral tenderness, is appreciated at L3 and L4. 12:11 Musculoskeletal/extremity: Extremities: grossly normal except: noted in the left leg: pain, ROM: full active range of motion, in the left leg, full passive range of motion, in the left leg, limited active range of motion due to pain, in the left leg, limited passive range of motion due to pain, in the left leg, Circulation is intact in all extremities. Sensation intact. 12:21 ECG was reviewed by the Attending Physician. 8 Vital Signs: 10:30 BP 121 / 68; Pulse 111; Resp 18; Pulse Ox 92% ; dm14 10:30 BP 121 / 68; Pulse 111; Resp 18; Pulse Ox 92% ; dm14 12:40 BP 140 / 84; Pulse 102; Resp 18; Pulse Ox 100% ; dm14 14:30 BP 124 / 75; Pulse 107; Resp 18; Pulse Ox 100% ; dm14 15:00 BP 113 / 62; Pulse 107; Resp 18; Pulse Ox 100% ; dm14 16:00 BP 122 / 77; Pulse 113; Resp 18; Pulse Ox 100% ; dm14 NIH Stroke Scale Scores: 12:11 NIHSS Score: 0 8 MDM: 10:35 Patient medically screened. [facility] 13:38 Data reviewed: vital signs, nurses notes, lab test result(s), EKG, radiologic studies, [facility] CT scan, plain films. Data interpreted: Pulse oximetry: on room air is 100 %. Interpretation: normal. Counseling: I had a detailed discussion with the patient and/or guardian regarding: the historical points, exam findings, and any diagnostic results supporting the discharge/admit diagnosis, lab results, radiology results, the need for further work-up and treatment in the hospital. 09/23 10:36 Order name: CPK [facility] 09/23 10:36 Order name: Hepatic Function [facility] 09/23 10:36 Order name: UDS [facility] 09/23 10:36 Order name: Troponin (emerg Dept Use Only) [facility] 09/23 10:36 Order name: Magnesium [facility] 09/23 10:36 Order name: Basic Metabolic Panel [facility] 09/23 10:36 Order name: CBC with Diff; Complete Time: 13:17 [facility] 09/23 10:36 Order name: Protime (+inr); Complete Time: 12:35 [facility] 09/23 10:36 Order name: Ptt, Activated; Complete Time: 12:35 [facility] 09/23 10:37 Order name: Creatine Phosphokinase; Complete Time: 12:35 EDMS 09/23 10:37 Order name: Liver (Hepatic) Function; Complete Time: 12:35 EDMS 09/23 10:37 Order name: Urine Drug Screen; Complete Time: 15:09 EDMS 09/23 10:37 Order name: Troponin (Emerg Dept Use Only); Complete Time: 12:35 EDMS 09/23 10:37 Order name: Magnesium; Complete Time: 12:35 EDMS 09/23 10:36 Order name: CT Stroke Brain w/o Contrast; Complete Time: 11:57 [facility] 09/23 10:36 Order name: Stroke CXR 1 View [facility] 09/23 10:36 Order name: EKG; Complete Time: 10:38 8 09/23 10:37 Order name: Basic Metabolic Panel; Complete Time: 12:35 EDMS 09/23 11:36 Order name: CT Lumbar Spine Wo Con [facility] 09/23 11:36 Order name: XRAY Hip LEFT 2 view [facility] 09/23 12:47 Order name: RAD; Complete Time: 12:49 EDMS 09/23 12:47 Order name: CT; Complete Time: 12:49 EDMS 09/23 12:51 Order name: RAD; Complete Time: 12:53 EDMS 09/23 13:20 Order name: Glucose, Ancillary Testing; Complete Time: 13:20 EDMS 09/23 14:04 Order name: COVID-19 : Document "Date of Symptom Onset" if Symptomatic. sv 09/23 14:42 Order name: CORONAVIRUS EDND 09/23 15:27 Order name: SARS-COV-2 RT PCR; Complete Time: 15:27 EDMS 09/23 10:36 Order name: Accucheck; Complete Time: 13:08 [facility] 09/23 10:36 Order name: Cardiac monitoring; Complete Time: 10:53 [facility] 09/23 10:36 Order name: EKG - Nurse/Tech; Complete Time: 13:05 8 09/23 10:36 Order name: IV Saline Lock; Complete Time: 10:53 [facility] 09/23 10:36 Order name: Labs collected and sent; Complete Time: 11:56 [facility] 09/23 10:36 Order name: NPO; Complete Time: 10:53 [facility] 09/23 10:36 Order name: O2 Per Protocol; Complete Time: 10:53 [facility] 09/23 10:36 Order name: O2 Sat Monitoring; Complete Time: 10:53 [facility] 09/23 10:36 Order name: Stroke Swallow Screen; Complete Time: 13:17 jr8 09/23 14:45 Order name: CONS Physician Consult EDMS EC:21 Rate is 110 beats/min. Rhythm is regular, Sinus tachycardia. QRS [place] is Normal. [place] jr8 interval is normal at 156 msec. QRS interval is normal at 78 msec. QT interval is normal at 360 msec. No Q waves. T waves are Normal. No ST changes noted. Clinical impression: Sinus tachycardia. Interpreted by me. Reviewed by me. Administered Medications: 12:36 Drug: fentaNYL (PF) 50 mcg Route: IVP; Site: left antecubital; dm14 15:33 Follow up: Response: No adverse reaction; Pain is decreased dm14 14:20 Drug: foLIC Acid 1 mg Route: IVPB; Site: right antecubital; dm14 15:31 Follow up: Response: No adverse reaction dm14 14:33 Drug: Aspirin 81 mg Route: PO; dm14 15:31 Follow up: Response: No adverse reaction dm14 Disposition: 09/24 07:28 Co-signature as Attending Physician, Nguyễn Cortes MD I agree with the assessment and kdr plan of care. Disposition: 09/23/20 13:39 Hospitalization ordered by Davidson Damian for Observation. Preliminary diagnosis are Syncope and collapse, Transient cerebral ischemic attack, unspecified. - Bed requested for Telemetry/MedSurg (observation). - Status is Observation. sv - Condition is Stable. - Problem is new. - Symptoms have improved. NIH Stroke Scale - NIH Stroke Score Date: 09/23/2020 Time: 12:11 Total Score = 0 1a. Level of Consciousness (LOC) - 0(Alert) 1b. Level of Consciousness (LOC) (Year \\T\\ Age) - 0(Both) 1c. LOC Commands (Open \\T\\ Closes Eyes/Customer Advocate) - 0(Both) 2. Best Gaze (Lateral Gaze Paresis) - 0(Normal) 3. Visual Field Loss - 0(No visual loss) 4. Facial Palsy - 0(Normal) 5a. Left Arm: Motor (10-second hold) - 0(No drift) 5b. Right Arm: Motor (10-second hold) - 0(No drift) 6a. Left Leg: Motor (5-second hold - always test supine) - 0(No drift) 6b. Right Leg: Motor (5-second hold - always test supine) - 0(No drift) 7. Limb Ataxia (finger/nose \\T\\ heel/dailey - test with eyes open) - 0(Absent) 8. Sensory Loss (pinprick arms/legs/face) - 0(Normal) 9. Best Language: Aphasia (description/naming/reading) - 0(No aphasia) 10. Dysarthria (speech clarity - read or repeat words) - 0(Normal) 11. Extinction and Inattention (visual/tactile/auditory/spatial/personal) - 0(No abnormality) Initials: jr8 Signatures: Dispatcher [employer] EDMS Sara Light RN RN Bell Canseco RN RN dw Rittger, Kevin, MD MD [facility] Jt Whitman PA PA jr8 Nicol Hernandez, RN RN dm14 Corrections: (The following items were deleted from the chart) 09/23 16:02 13:39 Hospitalization Ordered by Davidson Damian MD for Observation. Preliminary dw diagnosis is Syncope and collapse; Transient cerebral ischemic attack, unspecified. Bed requested for Telemetry/MedSurg (observation). Status is Observation. Condition is Stable. Problem is new. Symptoms have improved. jr8 17:17 16:02 09/23/2020 13:39 Hospitalization Ordered by Davidson Damian MD for sv Observation. Preliminary diagnosis is Syncope and collapse; Transient cerebral ischemic attack, unspecified. Bed requested for Telemetry/MedSurg (observation). Status is Observation. Condition is Stable. Problem is new. Symptoms have improved. dw
[2020-09-23] MEDS ORDERED: ASPIRIN EC 81 MG TAB PO ONE (14:38)
[2020-09-23] MEDS ORDERED: FOLIC ACID 5 MG/ML VIAL ONE (14:41)
--- NOTE | 2020-09-23 14:47 | P.HP ---
Certification for Inpatient Patient admitted to: Observation With expected LOS: <2 Midnights Practitioner: I am a practitioner with admitting privileges, knowledge of patient current condition, hospital course, and medical plan of care. Services: Services provided to patient in accordance with Admission requirements found in Title 42 Section 412.3 of the Code of Federal Regulations Patient History Date of Service: 09/23/20 Reason for admission: Syncope, ?CVA History of Present Illness: 50yo F, PMH: NIDDM2, HTN, GERD, Insomnia, Depression/anxiety, brought in to the ED by EMS after syncopal event at home. Patient remembers feeling dizzy/lightheaded after exiting her shower. She then felt tunnel vision, the next thing she recalls is being awakened by EMS. EMS report the patient had total left-sided paralysis/left facial droop upon their arrival. These symptoms resolved on arrival to the ED. Patient reports feeling much better now, reports headache, some slight tingling and weakness of left foot. Patient denies any prior episodes similar to this. She does report recent methamphetamine use a few days ago, which she has done before and not had a reaction like this. She also reports taking trazodone again the past 2-3 nights. She had to stop this medication previously due to severe hallucinations. Has been under a lot of stress with her sick father and going through a Terrible divorce. She also has not been taking her other medications regularly. She had 2nd dose of Moderna last Monday and has been having an intermittent headache since then. In the ED, labs were reported unremarkable, mild leukocytosis, negative CT head. EKG with sinus tachycardia 110s. She is unable to completely give accurate history on LLE weakness / tingling - thinks she had some of these symptoms since her back surgery 1 year ago, but might be a little worse today. At baseline, she can't walk too far, stand up for too long due to pain in her lower back. Allergies Penicillins Allergy (Intermediate, Verified 05/05/17 17:04) Hives/Rash sulfamethoxazole [From Bactrim] Allergy (Verified 05/05/17 17:04) Hives/Rash trimethoprim [From Bactrim] Allergy (Verified 05/05/17 17:04) Hives/Rash Home Medications: Aspirin [Aspirin EC 81 MG] 81 mg PO DAILY #30 tablet. 11/24/16 Metformin HCl [Glucophage] 500 mg PO BID #60 tablet 11/24/16 lisinopriL [Lisinopril] 10 mg PO DAILY #30 tablet 11/24/16 Codeine/APAP [Tylenol W/Codeine #3 tab] 1 tab PO Q6HP PRN #15 tab 05/05/17 Famotidine [Pepcid] 20 mg PO BID #30 tab 05/05/17 - Past Medical/Surgical History Diabetic: Yes -: DM- II, [id number] -: Pancreatitis -: GERD -: Depression/anxiety -: Insomnia -: topher -: back surgery, fusion - Family History Father -: Hypertension - Social History Smoking Status: Current some day smoker Alcohol use: No Caffeine use: No Place of Residence: Home Review of Systems 10-point ROS is otherwise unremarkable Assessment and Plan - Advance Directives Does patient have a Living Will: No Does patient have a Durable POA for Healthcare: No Physician Review Additional Text: Physical Exam: Gen: NAD, AAOx3 HEENT: normal conjunctiva, sclerae anicteric, PERRL, EOMI, no carotid bruit CV: sinus tachycardia 100, no murmur Pulm: CTAB, no w/r/r Abd: soft, NTND Ext: no edema Neuro: AAOx3, CNII-XII grossly intact with some "slight numbness across entire face". RUE/RLE: 5/5 strength. LUE: 5/5, LLE: 4/5. decreased sensation to light touch along L forearm/hand, LLE (with pins and needles sensation). no vision changes/loss Problem List: TIA vs CVA NIDDM2 HTN GERD Depression/Anxiety Insomnia Meth use Tobacco use -concern for TIA / CVA, with some minimal symptoms still, but patient unsure if these are slightly chronic -patient with poor appetite and started taking trazodone again, possible culprit but need to r/o CVA -will obs patient, obtain MRI, carotid, echo, lipid panel -start aspirin, statin -monitor on telemetry -neurology consulted -sinus tachy in ED, pt states she has been told she "runs a little fast" -check thyroid function tests -PT consulted. Swallow screen ordered -orthostatic vitals VTE: lovenox Code: full dispo: anticipate dc home in 24 hrs, pending workup Time Spent Managing Pts Care (In Minutes): 60
[2020-09-23 15:00] LABS: Barbiturates NEGATIVE (NEGATIVE); Benzodiazepines POSITIVE (NEGATIVE); Cocaine NEGATIVE (NEGATIVE); METHAMPHETAM POSITIVE (NEGATIVE); Methadone NEGATIVE (NEGATIVE); Opiates NEGATIVE (NEGATIVE); Phencyclidine NEGATIVE (NEGATIVE); THC Cannibis NEGATIVE (NEGATIVE)
[2020-09-23] MEDS ORDERED: ONDANSETRON 4 MG/2 ML VIAL IV PRN (17:10)
[2020-09-23] MEDS: INSULIN -REGULAR HUMAN 50 UNIT/0.5 ML ML SQ SCH ×2 (17:10→20:25)
[2020-09-23] MEDS: NA CHLORIDE 0.9% 1,000 ML IV SCH (17:35)
[2020-09-23] MEDS ORDERED: TRAMADOL HCL 50 MG TAB PO PRN ×2 (18:11→18:33)
[2020-09-23 18:21] LABS: T4,Total 10.4 ug/dL (4.8-13.9); Thyroid Stimulating Hormone 2.81 uIU/mL (0.360-3.740)
--- NOTE | 2020-09-23 19:55 | RAD REPORT ---
EXAM DESCRIPTION: USCarotid Artery Bilateral09/23/2020 7:28 pm CLINICAL HISTORY: tia COMPARISON: None FINDINGS: The velocity of the right internal carotid artery equals 85 cm/sec. The right ICA/CCA rati o 1. The velocity of the left internal carotid artery equals 94 cm/sec. The left ICA/CCA ratio 1.1 Minimal plaque is present within the carotid arteries. The vertebral arteries demonstrate antegrade flow IMPRESSION: Minimal plaque within the carotid arteries without evidence of a hemodynamically signifi cant stenosis NASCET criteria used. Mild 0-49% stenosis Moderate 50-69% stenosis Severe 70-99% stenosis
[2020-09-23] MEDS: ACETAMINOPHEN 500 MG TAB PO PRN (20:17)
[2020-09-23] MEDS ORDERED: ATORVASTATIN 20 MG TAB PO SCH (21:00)
[2020-09-23 21:15] LABS: Urine Appearance CLOUDY; Urine Bilirubin NEGATIVE (NEG); Urine Blood TRACE (NEG); Urine Color YELLOW; Urine Glucose 3+ (NEG); Urine Protein NEGATIVE (NEG); Urine Specific Gravity 1.025 (1.005-1.030)
[2020-09-23 21:36] LABS: Urine Microscopic Reflex ORDER UMIC
[2020-09-23 21:40] LABS: Urine Bacteria LOADED /HPF (<20); Urine RBC <5 /HPF (NONE SEEN); Urine Urothelial Cells <5 /HPF (NONE SEEN)
[2020-09-23] MEDS ORDERED: HYDROCODONE/APAP 7.5/325 MG TAB PO PRN (21:44)
[2020-09-24 03:56] LABS: Basophils % 0.4 % (0-1.3); Hematocrit 30.5 % (36.0-45.0); Lymphocytes % 28.5 % (15.3-44.8); RBC Red Blood Cell Count 3.69 M/uL (3.86-4.86)
[2020-09-24 04:54] LABS: ALT/SGPT 79 U/L (12-78); AST/SGOT 168 U/L (15-37); Alkaline Phosphatase 134 U/L (45-117); BUN Blood Urea Nitrogen 9 mg/dL (7-18); Bicarbonate 27 mmol/L (21-32); Bilirubin Total 1.5 mg/dL (0.2-1.0); Glucose Level 95 mg/dL (74-106); HDL Cholesterol 62 mg/dL (40-60); LDL Cholesterol, Calculated 50 (<130); Magnesium 2.3 mg/dL (1.8-2.4); Phosphorus 3.1 mg/dL (2.5-4.9); Potassium 4.2 mmol/L (3.5-5.1); Protein, Total 6.4 g/dL (6.4-8.2); Sodium Level 142 mmol/L (136-145)
[2020-09-24] MEDS: NA CHLORIDE 0.9% 1,000 ML IV SCH (05:47)
[2020-09-24] MEDS ORDERED: PANTOPRAZOLE 40MG TABLET PO SCH (06:30)
[2020-09-24] MEDS ORDERED: Levofloxacin 750mg IV 750 MG/150 ML BAG IV SCH (07:00)
[2020-09-24] MEDS: INSULIN -REGULAR HUMAN 50 UNIT/0.5 ML ML SQ SCH ×3 (07:30→16:30)
--- NOTE | 2020-09-24 07:47 | RAD REPORT ---
EXAM DESCRIPTION: US - Abdomen Exam Complete - 09/24/2020 7:28 am CLINICAL HISTORY: eval Liver, elevated LFTs, h/o cholecystectomy COMPARISON: Abdomen Pelvis Wo Contrast dated 09/18/2019 FINDINGS: Gallbladder is absent. No mass or abnormal fluid collection in the gallbladder fossa. Comm on bile duct is normal with no common duct stone identified. Liver and spleen are normal size. Liver measures 14 cm with the spleen 8.5 cm. No focal lesions are i dentifiable. The liver shows a coarsened, increased parenchymal echogenicity with a decrease in sonog raphic penetrance. This is a pattern typical for fatty infiltration but can be seen with non-fatty di ffuse hepatic parenchymal disease. Doppler evaluation shows no portal vein abnormality. No nodularity of the liver capsule. The pancreas is too obscured by bowel gas for full assessment. No hydronephrosis or suspicious mass in either kidney. Aorta and IVC show no significant finding. No ascites or bulky lymphadenopathy. IMPRESSION: Normal size liver showing diffuse fatty infiltration pattern. No focal liver lesion iden tified. Pancreas is too obscured by bowel gas for assessment. Concerns for a pancreatic process could be addr essed with CT imaging. Status post cholecystectomy. No abnormal biliary tree dilatation.
[2020-09-24] MEDS: ACETAMINOPHEN 500 MG TAB PO PRN (08:55)
[2020-09-24] MEDS ORDERED: ENOXAPARIN 40 MG/0.4 ML SQ SCH (09:00)
[2020-09-24 10:17] VITALS: BMI 30.9
[2020-09-24 10:48] VITALS: O2SAT 95
--- NOTE | 2020-09-24 12:50 | P.PN ---
Subjective Date of Service: 09/24/20 Chief Complaint: Syncope, ?CVA Subjective: Improving (feels ~50% better - still with some weakness of LLE, and having numbness sensation of L face, hand, leg. Reports 1 week of UTI symptoms - states gets frequent UTIs. no abdominal pain) Review of Systems 10-point ROS is otherwise unremarkable Physical Examination - Vital Signs Temperature: 97.6 F Blood Pressure: 103/69 Pulse: 85 Respirations: 16 Pulse Ox (%): 96 - Studies Laboratory Data (last 24 hrs) 09/23/20 11:00: PT 12.3, INR 1.07, APTT 29.9 09/23/20 11:00: WBC 11.00 H, Hgb 11.8 L, Hct 35.5 L, Plt Count 388 09/23/20 11:00: Sodium 136, Potassium 3.8, BUN 12, Creatinine 0.88, Glucose 276 H, Magnesium 2.2, Total Bilirubin 1.1 H, AST 19, ALT 29, Alkaline Phosphatase 92 Assessment & Plan Physician Review Additional Text: Physical Exam: Gen: NAD, AAOx3 HEENT: normal conjunctiva, sclerae anicteric, PERRL, EOMI CV: regular rate and rhythm, no murmur Pulm: CTAB, no w/r/r Abd: soft, NTND Ext: no edema Neuro: AAOx3, slight decreased sensation of L lower face, L arm, and L lower extremity. Str 5/5 bilaterally - slight weakness in LLE. visual beckwith by confrontation WNL Problem List: TIA vs CVA NIDDM2 HTN GERD Depression/Anxiety Insomnia Meth use Tobacco use -concern for TIA / CVA, with some minimal symptoms still - improved but persistent -counfounded by UTI, poor appetite, and recently taking trazodone again - has had "bad hallucinations" due to this medication -sinus tachy in ED, pt states she has been told she "runs a little fast", no arrhythmias noted on telemetry -carotid doppler - ok, MRI not done yet -continue aspirin, statin -neurology consulted -thyroid function tests- WNL -PT consulted. -orthostatic vitals positive yesterday, repeat after hydration. VTE: lovenox Code: full dispo: anticipate dc home in next 24 hrs, pending workup Time Spent Managing Pts Care (In Minutes): 35
[2020-09-24 16:42] VITALS: BP 107/73; TEMP 96.6
--- NOTE | 2020-09-24 16:49 | P.DS ---
Admission Date: 09/23/20 Discharge Date: 09/24/20 Disposition: ROUTINE DISCHARGE Discharge Condition: GOOD Reason for Admission: Syncope, TIA Consultations: Neurology - Dr. Herr Procedures: CT Brain (09/23): No acute intracranial abnormality. CXR (09/23): No acute intrathoracic process suspected. Hip X-ray (09/23): No fracture or dislocation is seen. CT Lumbar spine (09/23): Negative for a lumbar fracture. Postsurgical changes involve L5-S1. Osteophyte, disc bulge and bone plug abuts the left S1 nerve root. Carotid U/S (09/23): Minimal plaque within the carotid arteries without evidence of a hemodynamically significant stenosis Abd U/S (09/24): Normal size liver showing diffuse fatty infiltration pattern. No focal liver lesion identified. Pancreas is too obscured by bowel gas for assessment. Concerns for a pancreatic process could be addressed with CT imaging. Status post cholecystectomy. No abnormal biliary tree dilatation. Problem List: Syncope TIA UTI, cystitis NIDDM2 HTN GERD Depression/Anxiety Insomnia Meth use Tobacco use Brief History of Present Illness: 50yo F, PMH: NIDDM2, HTN, GERD, Insomnia, Depression/anxiety, brought in to the ED by EMS after syncopal event at home. Patient remembers feeling dizzy/lightheaded after exiting her shower. She then felt tunnel vision, the next thing she recalls is being awakened by EMS. EMS report the patient had total left-sided paralysis/left facial droop upon their arrival. These symptoms resolved on arrival to the ED. Patient reports feeling much better now, reports headache, some slight tingling and weakness of left foot. Patient denies any prior episodes similar to this. She does report recent methamphetamine use a few days ago, which she has done before and not had a reaction like this. She also reports taking trazodone again the past 2-3 nights. She had to stop this medication previously due to severe hallucinations. Has been under a lot of stress with her sick father and going through a Terrible divorce. She also has not been taking her other medications regularly. She had 2nd dose of Moderna last Monday and has been having an intermittent headache since then. In the ED, labs were reported unremarkable, mild leukocytosis, negative CT head. EKG with sinus tachycardia 110s. She is unable to completely give accurate history on LLE weakness / tingling - thinks she had some of these symptoms since her back surgery 1 year ago, but might be a little worse today. At baseline, she can't walk too far, stand up for too long due to pain in her lower back. Hospital Course: Patient was admitted for further evaluation of her syncope and for CVA workup. Imaging as noted above was negative. Workup notable for +orthostatic vitals on admission, which resolved with IVF hydration. UA loaded with bacteria, urine culture growing GNRs. She was treated with levaquin due to her penicillin allergy. Neurology was consulted. Patient reported 90% improvement except for some tingling in her fingers which she has seen her PCP for previously and concerned for possible carpal tunnel syndrome. Patient was scheduled to undergo MRI, however this was delayed and patient did not want to wait to have this done since she felt significantly better. Patient was discharged home on aspirin, statin, and folic acid. She is to call Dr. Herr's office to schedule outpatient MRI and follow-up. She was advised to stop using amphetamines, trazodone, and to stay hydrated. She has poorly controlled diabetes and was advised on compliance. Vital Signs/Physical Exam: Physical Exam: Gen: NAD, AAOx3 HEENT: normal conjunctiva, sclerae anicteric, PERRL, EOMI CV: regular rate and rhythm, no murmur Pulm: CTAB, no w/r/r Abd: soft, NTND Ext: no edema Neuro: AAOx3, str 5/5 in all extremities, CNII-XII grossly intact, mild stocking-glove loss to light touch 00Temp Pulse Resp BP Pulse Ox 96.6 F L 87 16 107/73 95 09/24/20 16:00 09/24/20 16:00 09/24/20 16:00 09/24/20 16:00 09/24/20 16:00 Laboratory Data at Discharge: WBC 7.00 K/uL (4.3-10.9) D 09/24/20 03:39 Hgb 10.3 g/dL (12.0-15.0) L 09/24/20 03:39 Hct 30.5 % (36.0-45.0) L 09/24/20 03:39 Plt Count 307 K/uL (152-406) D 09/24/20 03:39 PT 12.3 SECONDS (9.5-12.5) 09/23/20 11:00 INR 1.07 09/23/20 11:00 APTT 29.9 SECONDS (24.3-36.9) 09/23/20 11:00 Sodium 142 mmol/L (136-145) 09/24/20 03:39 Potassium 4.2 mmol/L (3.5-5.1) 09/24/20 03:39 BUN 9 mg/dL (7-18) 09/24/20 03:39 Creatinine 0.55 mg/dL (0.55-1.3) 09/24/20 03:39 Glucose 95 mg/dL (74-106) 09/24/20 03:39 Phosphorus 3.1 mg/dL (2.5-4.9) 09/24/20 03:39 Magnesium 2.3 mg/dL (1.8-2.4) 09/24/20 03:39 Total Bilirubin 1.5 mg/dL (0.2-1.0) H 09/24/20 03:39 AST 168 U/L (15-37) H D 09/24/20 03:39 ALT 79 U/L (12-78) H 09/24/20 03:39 Alkaline Phosphatase 134 U/L (45-117) H 09/24/20 03:39 Triglycerides 95 mg/dL (<150) 09/24/20 03:39 Cholesterol 131 mg/dL (<200) 09/24/20 03:39 HDL Cholesterol 62 mg/dL (40-60) H 09/24/20 03:39 Cholesterol/HDL Ratio 2.11 09/24/20 03:39 Home Medications: Escitalopram [Lexapro*] 1 tab PO DAILY 09/23/20 Gabapentin 1 tab PO Q8H 09/23/20 Metformin HCl [Glucophage] 750 mg PO BID 09/23/20 Omeprazole [Prilosec] 40 mg PO DAILY 09/23/20 glyBURIDE [Glyburide] 2.5 mg PO DAILY 09/23/20 lisinopriL [Lisinopril] 5 mg PO DAILY 09/23/20 Aspirin [Aspirin EC 81 MG] 81 mg PO DAILY 30 Days #30 tablet. 09/24/20 Atorvastatin Calcium [Lipitor] 40 mg PO BEDTIME 30 Days #30 tablet 09/24/20 Folic Acid 2 mg PO DAILY 30 Days #60 tablet 09/24/20 levoFLOXacin [Levaquin] 750 mg PO DAILY 7 Days #7 tab 09/24/20 New Medications: Aspirin [Aspirin EC 81 MG] 81 mg PO DAILY 30 Days #30 tablet. Folic Acid 2 mg PO DAILY 30 Days #60 tablet levoFLOXacin [Levaquin] 750 mg PO DAILY 7 Days #7 tab Atorvastatin Calcium [Lipitor] 40 mg PO BEDTIME 30 Days #30 tablet Physician Discharge Instructions: You were found to have a UTI and dehydrated. Some the of the medication you took likely contributed to your passing out as well. It is possible you had a TIA (transient ischemic attack) or "mini-stroke" as some call it. You are discharged with aspirin, folic acid, atorvastatin for this possible TIA. You are discharged with 7 days of levaquin (antibiotic) for your UTI. Please follow up with your PCP in the next few days. Please call the Neurology office tomorrow to schedule a follow up appointment with Dr. Herr. Please stop taking any medication you are not prescribed. Diet: ADA Activity: Ad víctor Followup: Adam Herr MD [ASSOCIATE-ACTIVE - CAN ADMIT] - (call to schedule appointment) NONE,NONE [Primary Care Provider] - Time spent managing pt's care (in minutes): 40
--- NOTE | 2020-09-24 19:52 | CON ---
Reason For Consultation: Consultation called because of possible stroke versus TIA or syncope. History Of Present Illness: Ms. Young is a 50-year-old right-handed patient with non-insu pam-dependent diabetes mellitus type 2, hypertension, gastroesophageal reflux disease, and history of methamphetamine abuse, who comes to [facility] with episodes of feeling dizzy, lightheaded and an apparent syncopal episode in shower and subsequently left-sided numbness and weakness includin g the face, arm, and leg. The setting for her symptoms are her father being sick and going through a "terrible divorce." She often times has been missing her medications and her blood sugars have been very elevated with hemoglobin A1c of 11 and hospital blood sugars around 350. She reports the left lower extremity symptoms were not the only symptoms, but she did have tingling in the fingertips and toes bilaterally, but as she got to the hospital and received fluids, symptoms improved, and she is a ble to stand and walk, and at the time of my evaluation, she felt 90% plus back to normal except for some tingling in the fingers, which she was told by Dr. Ryan, her primary care physician may be relat ed to carpal tunnel syndrome. She was ready to go home and did not want to wait to have an MRI done to rule out the presence of a stroke and the CT scan was negative CT. Past Medical History: As indicated above. In addition, gastroesophageal reflux disease, pancreatiti s, depression, anxiety, insomnia. Past Surgical History: Cholecystectomy, lower back disk fusion. Allergies: PENICILLIN, SULFA DRUGS. Medications: At home aspirin 81 mg daily, metformin 500 mg twice daily, lisinopril 10 mg daily, Tyle nol 3 one every 6 hours as needed, Pepcid 20 mg twice daily. Family History: Hypertension in father. Social History: Smokes daily. Admits to methamphetamine use. Denies alcohol use. Review of Systems: Aside from mentioned, she denies any recent fevers, chills, nausea, vomiting, myalgias, arthralgias, headache, weight change. She does admit to some low back pain. No rash. No psychiatric issues asid e from managed to control depression. Physical Examination: Vital Signs: Blood pressure 107/73. She had a negative orthostatics from lying, sitting, standing, changing them no more than 3 points in systolic and she was asymptomatic. Pulse 85, respiratory rate 16, temperature 97.6, oxygen saturation 95%. Weight 180 pounds, height 5 feet 4 inches, BMI 30.9. General: Ms. Young was in her room, standing at the time I came in. She is in no acute distress. HEENT: She is normocephalic, atraumatic. Her sclerae are anicteric. Oropharynx is pink and moist. Neck: Supple. Chest: Clear. Heart: Regular. Extremities: Show no clubbing, cyanosis, or edema. Neurological: She is alert and oriented to situation, place, and time and follows all commands appro priately. She has no cranial nerve deficits on 2 through 12 motor examination. No weakness in upper and lower extremities appreciated. Sensory exam, mild stocking-glove loss to light touch temperatur e. She does have mildly positive Tinel's and Phalen's at the wrist. Otherwise, reflexes are symmetr ic around 1 to 2+ upper and lower extremities. Coordination intact in upper and lower extremities an d gait intact. Laboratory Studies: Complete blood count with differential shows a low hemoglobin of 10.3 and otherw ise essentially unremarkable. Coagulation panel is normal. Chemistries, blood sugars now improved, range 94 to 173, calcium 7.8, total bilirubin elevated at 1.5, AST elevated at 168, ALT elevated at 7 9. Alkaline phosphatase is elevated at 134. TSH normal. HDL cholesterol is 62, LDL cholesterol 50, total cholesterol 131. Urinalysis showed loaded with bacteria and cultures are pending. Her drug s creen is positive for amphetamine and benzodiazepine. COVID-19 negative. Assessment: Ms. Young is a 50-year-old patient with hypertension, diabetes mellitus, methamphetamin e abuse, who reportedly had left-sided symptoms including face, arm, leg numbness, weakness that have resolved. She is taking now Lipitor for stroke risk reduction along with medications for her diabet es and hypertension. However, she has actually not been on aspirin since her hospitalization and lynette t is a recommended medication. She does admit again to methamphetamine use on multiple occasions and a prior drug screen over year ago did identify amphetamine in her drug screen. Plan: 1.She is strongly advised to stop using amphetamines. 2.Aspirin 81 mg daily. 3.Folate 1 mg daily. 4.Continue with aggressive management of diabetes mellitus and hypertension. 5.She may continue with Lipitor 40 mg at bedtime. 6.Follow up with her primary care physician. 7.Call Dr. Herr's office on next week Monday and will schedule outpatient brain MRI. FELICIANO Voice ID: [id number] Report ID: [id number]
--- NOTE | 2020-09-25 08:31 | ECHO ---
HEIGHT: 5 ft 4 in WEIGHT: 180 lb 0 oz DATE OF STUDY: 09/24/[address]: Davidson Damian MD 2-DIMENSIONAL: YES M.MODE: YES DOPPLER: YES COLOR FLOW: YES TDS: PORTABLE: DEFINITY: BUBBLE STUDY: DIAGNOSIS: STROKE CARDIAC HISTORY: CATHERIZATION: SURGERY: PROSTHETIC VALVE: PACEMAKER: MEASUREMENTS (cm) DIASTOLIC (NORMALS) SYSTOLIC (NORMALS) IVSd 1.2 (0.6-1.2) LA Diam 3.0 (1.9-4.0) LVEF 63% LVIDd 2.7 (3.5-5.7) LVIDs 1.8 (2.0-3.5) %FS 363% LVPWd 1.1 (0.6-1.2) Ao Diam 2.7 (2.0-3.7) 2 DIMENSIONAL ASSESSMENT: RIGHT ATRIUM: NORMAL LEFT ATRIUM: NORMAL RIGHT VENTRICLE: NORMAL LEFT VENTRICLE: NORMAL TRICUSPID VALVE: NORMAL MITRAL VALVE: NORMAL PULMONIC VALVE: NORMAL AORTIC VALVE: NORMAL PERICARDIAL EFFUSION: NONE AORTIC ROOT: NORMAL LEFT VENTRICULAR WALL MOTION: NORMAL DOPPLER/COLOR FLOW: NORMAL COMMENTS: NORMAL LEFT VENTRICULAR EJECTION FRACTION 55-60%. NORMAL WALL MOTION. NORMAL STUDY. TECHNOLOGIST: FRANCESCA CLARK
== END 2020-09-24 17:38 | disposition home or self-care (01) ==
LOC: ER 10:24 → ERHOLD 14:44 → 4TH 17:06
PROVIDERS: ADMIT Hospitalist; ATTEND Hospitalist
DX: G45.9 Transient cerebral ischemic attack, unspecified (principal); N30.90 Cystitis, unspecified without hematuria; R55 Syncope and collapse; E11.9 Type 2 diabetes mellitus without complications; I10 Essential (primary) hypertension; K21.9 Gastro-esophageal reflux disease without esophagitis; Z20.822 Contact with and (suspected) exposure to COVID-19; F41.8 Other specified anxiety disorders; G47.00 Insomnia, unspecified; Z88.0 Allergy status to penicillin; Z79.84 Long term (current) use of oral hypoglycemic drugs; F15.10 Other stimulant abuse, uncomplicated; F17.210 Nicotine dependence, cigarettes, uncomplicated
CPT/HCPCS: 93005 ×2; 93306; 87088; 85025 ×2; 87086; 80048; 36415; 83735 ×2; 82550; 84100; 85610; 80061; 82947 ×6; 80076; 80307 ×8; 85730; 84436; 84443; 87077; 87186; 84484; 80053; 72131; 70450; 71045; 73502; 93880; 76700; 92610; 97112; 97116; 97161; 97530; 94760 ×3; 99285; U0003; J1650; J3010; J7030 ×2; J2405; 81003; 81015; G0378

== ENCOUNTER 2020-10-25 07:29 | Emergency (ER) | payer BC ==
[2020-10-25 07:53] LABS: Absolute Lymphocytes (CBC) 1.8 K/uL (0.7-4.9); Basophils % 0.6 % (0-1.3); Hematocrit 34.8 % (36.0-45.0); MPV 8.4 fL (7.6-11.3)
--- NOTE | 2020-10-25 08:00 | RAD REPORT ---
EXAM DESCRIPTION: CT - Ct Stroke Brain Wo Cont - 10/25/2020 7:41 am CLINICAL HISTORY: WEAKNESS Headache, drowsiness, CVA symptomology COMPARISON: Ct Stroke Brain Wo Cont dated 09/23/2020 TECHNIQUE: All CT scans are performed using dose optimization technique as appropriate and may inclu de automated exposure control or mA/KV adjustment according to patient size. FINDINGS: No intracranial hemorrhage, hydrocephalus or extra-axial fluid collection.No areas of brai n edema or evidence of midline shift. The paranasal sinuses and mastoids are clear. The calvarium is intact. IMPRESSION: No acute intracranial abnormality. The findings were discussed with Dr. Crews On 10/25/2020 at 7:55 a.m. by telephone.
[2020-10-25 08:02] LABS: Protime INR 1.01
[2020-10-25 08:09] LABS: BUN Blood Urea Nitrogen 10 mg/dL (7-18); Bicarbonate 23 mmol/L (21-32); Glucose Level 242 mg/dL (74-106); Potassium 3.7 mmol/L (3.5-5.1); Sodium Level 137 mmol/L (136-145)
[2020-10-25] MEDS ORDERED: NA CHLORIDE 0.9% 1,000 ML ONE (08:21)
--- NOTE | 2020-10-25 08:28 | RAD REPORT ---
EXAM DESCRIPTION: RAD - Chest Single View - 10/25/2020 8:16 am CLINICAL HISTORY: SOB Chest pain. COMPARISON: Chest Single View dated 09/23/2020; Chest Single View dated 05/05/2017; Chest Single View dated 11/23/2016; Abdomen Exam Complete dated 09/24/2020 FINDINGS: Portable technique limits examination quality. The lungs are grossly clear. The heart is normal in size. No displaced fractures. IMPRESSION: No acute intrathoracic process suspected.
[2020-10-25] MEDS ORDERED: LORazepam 2 MG/ML VIAL ONE (09:17)
--- NOTE | 2020-10-25 10:27 | EDPHYS ---
Physician Documentation [facility] Name: Vanessa Young Age: 50 yrs Sex: Female : 1970 Arrival Date: 10/25/2020 Time: 07:32 Bed 4 Private MD: ED Physician Wood Crews HPI: 10/25 09:24 This 50 yrs old Female presents to ER via EMS with complaints of generalized ma2 numbness. 09:24 Onset: The symptoms/episode began/occurred gradually, 1 day(s) ago. Associated signs ma2 and symptoms: Pertinent negatives: ataxia, chest pain, confusion, diaphoresis. Severity of symptoms: At their worst the symptoms were very mild in the emergency department the symptoms have resolved. patient states she had generalized numbness nad weakness that resolved. she has no stroke or tia before. no symptoms at this time and would like to be discharged. Historical: - Allergies: 07:51 Bactrim; bp 07:51 PENICILLINS; bp - Home Meds: 07:51 Tresiba FlexTouch U-200 200 unit/mL (3 mL) subcutaneous inpn [Active]; metformin 750 mg bp Oral Tb24 1 tab twice a day [Active]; lisinopril 20 mg Oral tab 1 tab once daily [Active]; glyburide 2.5 mg Oral tab 1 tab once daily [Active]; gabapentin 600 mg Oral tab 1 tab 3 times per day for Neuropathic Pain [Active]; escitalopram oxalate 20 mg Oral tab once daily [Active]; ozempic [Active]; - PMHx: 07:51 Anxiety; Depression; Diabetes - IDDM; GERD; Hypertension; Pancreatitis; bp - Immunization history:: Adult Immunizations up to date. - Social history:: Smoking status: Patient denies any tobacco usage or history of. Patient/guardian denies using alcohol, street drugs, The patient lives with family. - Family history:: not pertinent. ROS: 09:24 Constitutional: Negative for fever, chills, and weight loss. ma2 09:24 All other systems are negative. Exam: 09:24 Radiologist reports: normal ma2 09:24 Constitutional: This is a well developed, well nourished patient who is awake, alert, and in no acute distress. Head/Face: Normocephalic, atraumatic. Eyes: Pupils equal round and reactive to light, extra-ocular motions intact. Lids and lashes normal. Conjunctiva and sclera are non-icteric and not injected. Cornea within normal limits. Periorbital areas with no swelling, redness, or edema. ENT: Nares patent. No nasal discharge, no septal abnormalities noted. Tympanic membranes are normal and external auditory canals are clear. Oropharynx with no redness, swelling, or masses, exudates, or evidence of obstruction, uvula midline. Mucous membranes moist. Neck: Trachea midline, no thyromegaly or masses palpated, and no cervical lymphadenopathy. Supple, full range of motion without nuchal rigidity, or vertebral point tenderness. No Meningismus. Chest/axilla: Normal chest wall appearance and motion. Nontender with no deformity. No lesions are appreciated. Cardiovascular: Regular rate and rhythm with a normal S1 and S2. No gallops, murmurs, or rubs. Normal PMI, no JVD. No pulse deficits. Respiratory: Lungs have equal breath sounds bilaterally, clear to auscultation and percussion. No rales, rhonchi or wheezes noted. No increased work of breathing, no retractions or nasal flaring. Abdomen/GI: Soft, non-tender, with normal bowel sounds. No distension or tympany. No guarding or rebound. No evidence of tenderness throughout. Back: No spinal tenderness. No costovertebral tenderness. Full range of motion. Skin: Warm, dry with normal turgor. Normal color with no rashes, no lesions, and no evidence of cellulitis. MS/ Extremity: Pulses equal, no cyanosis. Neurovascular intact. Full, normal range of motion. Neuro: Awake and alert, GCS 15, oriented to person, place, time, and situation. Cranial nerves II-XII grossly intact. Motor strength 5/5 in all extremities. Sensory grossly intact. Cerebellar exam normal. Normal gait. Psych: Awake, alert, with orientation to person, place and time. Behavior, mood, and affect are within normal limits. Vital Signs: 07:32 BP 115 / 65; Pulse 108; Resp 24; Temp 97.8; Pulse Ox 97% on R/A; bp 09:03 BP 165 / 94; Pulse 92; Resp 20; Pulse Ox 100% ; bp NIH Stroke Scale Scores: 07:45 NIHSS Score: 2 bp 09:03 NIHSS Score: 0 bp MDM: 07:38 Patient medically screened. ma2 09:24 Differential diagnosis: Alzheimer disease, Parkinson disease, metabolic disorder, drug ma2 effects. Data reviewed: vital signs, nurses notes. Counseling: I had a detailed discussion with the patient and/or guardian regarding: the historical points, exam findings, and any diagnostic results supporting the discharge/admit diagnosis, the presence of at least one elevated blood pressure reading (>120/80) during this emergency department visit, the need for outpatient follow up. Response to treatment: the patient's symptoms have markedly improved after treatment. 10/25 07:35 Order name: Basic Metabolic Panel bp 10/25 07:35 Order name: CBC with Diff bp 10/25 07:35 Order name: Protime (+inr) bp 10/25 07:35 Order name: Ptt, Activated bp 10/25 07:36 Order name: Basic Metabolic Panel; Complete Time: 08:34 EDMS 10/25 07:36 Order name: CBC with Automated Diff; Complete Time: 08:35 EDMS 10/25 07:35 Order name: CT Stroke Brain w/o Contrast; Complete Time: 08:35 bp 10/25 07:35 Order name: Stroke CXR 1 View; Complete Time: 08:35 bp 10/25 07:35 Order name: EKG; Complete Time: 07:36 bp 10/25 07:36 Order name: Protime (+INR); Complete Time: 08:35 EDMS 10/25 07:36 Order name: PTT, Activated Partial Thromb; Complete Time: 08:35 EDMS 10/25 07:55 Order name: Glucose, Ancillary Testing; Complete Time: 08:35 EDMS 10/25 07:35 Order name: Accucheck; Complete Time: 07:47 bp 10/25 07:35 Order name: Cardiac monitoring; Complete Time: 07:48 bp 10/25 07:35 Order name: EKG - Nurse/Tech; Complete Time: 07:51 bp 10/25 07:35 Order name: IV Saline Lock; Complete Time: 07:51 bp 10/25 07:35 Order name: Labs collected and sent; Complete Time: 07:51 bp 10/25 07:35 Order name: NPO; Complete Time: 07:51 bp 10/25 07:35 Order name: O2 Per Protocol; Complete Time: 08:01 bp 10/25 07:35 Order name: O2 Sat Monitoring; Complete Time: 08:01 bp 10/25 07:35 Order name: Stroke Swallow Screen; Complete Time: 08:01 bp Administered Medications: 08:00 Drug: NS 0.9% 1000 ml Route: IV; Rate: 1 bolus; Site: right antecubital; bp 11:39 Follow up: IV Status: Completed infusion; IV Intake: 1000ml bp 09:03 Not Given (MED UNAVAILABLE): Ativan 1 mg IVP once bp Point of Care Testing: Blood Glucose: 07:32 Blood Glucose: 250 mg/dL; bp Ranges: Critical Glucose Levels:Adult <50 mg/dl or >400 mg/dl <40 mg/dl or >180 mg/dl Disposition: 10/25/20 10:27 Discharged to Home. Impression: Weakness - generalized. - Condition is Stable. - Discharge Instructions: Weakness, [id number]. - Medication Reconciliation Form, Thank You Letter, Antibiotic Education, Prescription Opioid Use, Work release form form. - Follow up: Private Physician; When: Tomorrow; Reason: If symptoms return, Continuance of care. NIH Stroke Scale - NIH Stroke Score Date: 10/25/2020 Time: 07:45 Total Score = 2 1a. Level of Consciousness (LOC) - 0(Alert) 1b. Level of Consciousness (LOC) (Year \T\ Age) - 0(Both) 1c. LOC Commands (Open \T\ Closes Eyes/[employer] Shothole Driller) - 0(Both) 2. Best Gaze (Lateral Gaze Paresis) - 0(Normal) 3. Visual Field Loss - 0(No visual loss) 4. Facial Palsy - 0(Normal) 5a. Left Arm: Motor (10-second hold) - 0(No drift) 5b. Right Arm: Motor (10-second hold) - 0(No drift) 6a. Left Leg: Motor (5-second hold - always test supine) - 1(Drift) 6b. Right Leg: Motor (5-second hold - always test supine) - 0(No drift) 7. Limb Ataxia (finger/nose \T\ heel/dailey - test with eyes open) - 0(Absent) 8. Sensory Loss (pinprick arms/legs/face) - 1(Mild to moderate loss) 9. Best Language: Aphasia (description/naming/reading) - 0(No aphasia) 10. Dysarthria (speech clarity - read or repeat words) - 0(Normal) 11. Extinction and Inattention (visual/tactile/auditory/spatial/personal) - 0(No abnormality) Initials: bp NIH Stroke Scale - NIH Stroke Score Date: 10/25/2020 Time: 09:03 Total Score = 0 1a. Level of Consciousness (LOC) - 0(Alert) 1b. Level of Consciousness (LOC) (Year \T\ Age) - 0(Both) 1c. LOC Commands (Open \T\ Closes Eyes/[employer] Shothole Driller) - 0(Both) 2. Best Gaze (Lateral Gaze Paresis) - 0(Normal) 3. Visual Field Loss - 0(No visual loss) 4. Facial Palsy - 0(Normal) 5a. Left Arm: Motor (10-second hold) - 0(No drift) 5b. Right Arm: Motor (10-second hold) - 0(No drift) 6a. Left Leg: Motor (5-second hold - always test supine) - 0(No drift) 6b. Right Leg: Motor (5-second hold - always test supine) - 0(No drift) 7. Limb Ataxia (finger/nose \T\ heel/dailey - test with eyes open) - 0(Absent) 8. Sensory Loss (pinprick arms/legs/face) - 0(Normal) 9. Best Language: Aphasia (description/naming/reading) - 0(No aphasia) 10. Dysarthria (speech clarity - read or repeat words) - 0(Normal) 11. Extinction and Inattention (visual/tactile/auditory/spatial/personal) - 0(No abnormality) Initials: bp Signatures: Dispatcher [employer] Chase Block RN RN bp Wood Crews MD MD ma2 Corrections: (The following items were deleted from the chart) 11:39 10:27 10/25/2020 10:27 Discharged to Home. Impression: Weakness - generalized. bp Condition is Stable. Discharge Instructions: Weakness, [id number]. Forms are Medication Reconciliation Form, Thank You Letter, Antibiotic Education, Prescription Opioid Use. Follow up: Private Physician; When: Tomorrow; Reason: If symptoms return, Continuance of care. ma2
--- NOTE | 2020-10-25 10:27 | ER ---
Nurse's Notes [facility] [place], [place] Name: Vanessa Young Age: 50 yrs Sex: Female : 1970 Arrival Date: 10/25/2020 Time: 07:32 Bed 4 Private MD: Diagnosis: Weakness-generalized Presentation: 10/25 07:32 Chief complaint: EMS states: GENERALIZED WEAKNESS, LEFT SIDED NUMBNESS AND ANXIETY x1.5 bp HR. 07:32 Coronavirus screen: At this time, the client does not indicate any symptoms associated bp with coronavirus-19. Ebola Screen: No symptoms or risks identified at this time. An acute neurological deficit is present. The charge nurse has been notified. The patient has been moved to a treatment area. The patients blood glucose was checked prior to arriving to the hospital and was found to be hyperglycemic. The patient has been moved to a treatment room. Initial Sepsis Screen: Does the patient meet any 2 criteria? HR > 90 bpm. No. Patient's initial sepsis screen is negative. Does the patient have a suspected source of infection? No. Patient's initial sepsis screen is negative. Risk Assessment: Do you want to hurt yourself or someone else? Patient reports no desire to harm self or others. Onset of symptoms was October 25, 2020 at 06:00. Care prior to arrival: IV initiated. 20 GA, in the right antecubital area, Glucose check: 244. 07:32 Method Of Arrival: EMS: [facility] bp 07:32 Acuity: CLIFFORD 2 bp Triage Assessment: 07:32 The onset of the patients symptoms was October 25, 2020 at 06:00. General: Appears bp distressed, uncomfortable, obese, Behavior is cooperative, appropriate for age, anxious. Pain: Denies pain. EENT: No deficits noted. Neuro: Reports numbness in LEFT SIDE weakness in GENERALIZED. Cardiovascular: Rhythm is sinus tachycardia. Respiratory: No deficits noted. GI: No signs and/or symptoms were reported involving the gastrointestinal system. : No signs and/or symptoms were reported regarding the genitourinary system. Derm: No deficits noted. Musculoskeletal: No deficits noted. Stroke Activation: Symptom onset < 3 hours Physician: Stroke Attending; Name: ; Notified At: ; Arrived At: Physician: Chief Stroke Resident; Name: ; Notified At: ; Arrived At: Physician: Stroke Resident; Name: ; Notified At: ; Arrived At: Physician: ED Attending; Name: Chen BAUTISTA; Notified At: ; Arrived At: Physician: ED Resident; Name: ; Notified At: ; Arrived At: Historical: - Allergies: 07:51 Bactrim; bp 07:51 PENICILLINS; bp - Home Meds: 07:51 Tresiba FlexTouch U-200 200 unit/mL (3 mL) subcutaneous inpn [Active]; metformin 750 mg bp Oral Tb24 1 tab twice a day [Active]; lisinopril 20 mg Oral tab 1 tab once daily [Active]; glyburide 2.5 mg Oral tab 1 tab once daily [Active]; gabapentin 600 mg Oral tab 1 tab 3 times per day for Neuropathic Pain [Active]; escitalopram oxalate 20 mg Oral tab once daily [Active]; ozempic [Active]; - PMHx: 07:51 Anxiety; Depression; Diabetes - IDDM; GERD; Hypertension; Pancreatitis; bp - Immunization history:: Adult Immunizations up to date. - Social history:: Smoking status: Patient denies any tobacco usage or history of. Patient/guardian denies using alcohol, street drugs, The patient lives with family. - Family history:: not pertinent. Screenin:32 Abuse screen: Denies threats or abuse. Denies injuries from another. Nutritional bp screening: No deficits noted. Tuberculosis screening: No symptoms or risk factors identified. Fall Risk None identified. Assessment: 07:32 VAN Scoring: Arm Drift: Minor drift Visual Disturbance: No visual disturbance noted. bp Aphasia: No aphasia noted. Neglect: No neglect noted. The patient has not been NPO before screening. The patient is alert, and able to follow commands. The patient does not exhibit slurred or garbled speech. The patient is not exhibiting difficulty speaking. The patient does not exhibit difficulty understanding words. The patient is able to swallow own secretions with no drooling or need for suction. Patient tolerated one teaspoon of water. No drooling, immediate coughing, gurgling, or clearing of the throat was noted. The patient tolerated 90mL of water. No drooling, immediate coughing, gurgling, or clearing of the throat was noted. The patient passed the bedside swallow screening. Oral medications may be given as ordered. Contact Physician for further diet orders. Provider notified of bedside swallow screening results: Wood Bautista MD. General: SEE TRIAGE NOTE. PT TO CT FOR STROKE ALERT. 07:45 T-PA (Activase) Screening: Contraindications: Rapidly improving condition or minor bp deficit: Yes. Reassessment: PT RETURNED FROM CT. CT INITIAL IMPRESSIONS UNREMARKABLE. 09:03 Reassessment: Patient appears in no apparent distress at this time. No changes from bp previously documented assessment. Patient and/or family updated on plan of care and expected duration. Pain level reassessed. ALL CURRENT ORDERS COMPLETED, IVF INFUSING. 09:40 Reassessment: Patient appears in no apparent distress at this time. No changes from bp previously documented assessment. Patient and/or family updated on plan of care and expected duration. Pain level reassessed. Patient is alert, oriented x 3, equal unlabored respirations, skin warm/dry/pink. 10:40 Reassessment: D/C ON HOLD FOR FAMILY TRANSPORT. bp 11:37 Reassessment: PT D/C HOME AMBULATORY, DX WITH GENERALIZED WEAKNESS. bp Vital Signs: 07:32 BP 115 / 65; Pulse 108; Resp 24; Temp 97.8; Pulse Ox 97% on R/A; bp 09:03 BP 165 / 94; Pulse 92; Resp 20; Pulse Ox 100% ; bp NIH Stroke Scale Scores: 07:45 NIHSS Score: 2 bp 09:03 NIHSS Score: 0 bp ED Course: 07:32 Patient arrived in ED. ma2 07:32 Arm band placed on. bp 07:34 Chase Cabrera, RN is Primary Nurse. bp 07:35 Wood Bautista MD is Attending Physician. ma2 07:40 CT Stroke Brain w/o Contrast In Process Unspecified. EDMS 07:48 Basic Metabolic Panel Sent. mh5 07:48 Patient has correct armband on for positive identification. Bed in low position. Call mh5 light in reach. Side rails up X2. Warm blanket given. environmental monitoring specialist on. Pulse ox on. NIBP on. 07:49 Triage completed. bp 07:49 Initial lab(s) drawn, by ED staff, sent to lab. EKG done, by ED staff, reviewed by bp Wood Bautista MD. Maintain EMS IV. Dressing intact. Good blood return noted. Site clean \T\ dry. Gauge \T\ site: 20 GAUGE R AC. 07:50 PTT, Activated Partial Thromb Sent. mh5 07:50 CBC with Automated Diff Sent. mh5 07:50 Protime (+INR) Sent. mh5 07:50 Basic Metabolic Panel Sent. mh5 07:51 CBC with Diff Sent. mh5 07:51 Protime (+inr) Sent. mh5 07:51 Ptt, Activated Sent. mh5 08:16 Stroke CXR 1 View In Process Unspecified. EDMS 11:38 No provider procedures requiring assistance completed. IV discontinued, intact, bp bleeding controlled, No redness/swelling at site. Pressure dressing applied. Administered Medications: 08:00 Drug: NS 0.9% 1000 ml Route: IV; Rate: 1 bolus; Site: right antecubital; bp 11:39 Follow up: IV Status: Completed infusion; IV Intake: 1000ml bp 09:03 Not Given (MED UNAVAILABLE): Ativan 1 mg IVP once bp Point of Care Testing: Blood Glucose: 07:32 Blood Glucose: 250 mg/dL; bp Ranges: Intake: 11:39 IV: 1000ml; Total: 1000ml. bp Outcome: 10:27 Discharge ordered by MD. damon 11:39 Discharged to home ambulatory, with family. bp 11:39 Condition: stable 11:39 Discharge instructions given to patient, Instructed on discharge instructions, follow up and referral plans. Demonstrated understanding of instructions, follow-up care. 11:39 Patient left the ED. bp NIH Stroke Scale - NIH Stroke Score Date: 10/25/2020 Time: 07:45 Total Score = 2 1a. Level of Consciousness (LOC) - 0(Alert) 1b. Level of Consciousness (LOC) (Year \T\ Age) - 0(Both) 1c. LOC Commands (Open \T\ Closes Eyes/Bindery Supervisor) - 0(Both) 2. Best Gaze (Lateral Gaze Paresis) - 0(Normal) 3. Visual Field Loss - 0(No visual loss) 4. Facial Palsy - 0(Normal) 5a. Left Arm: Motor (10-second hold) - 0(No drift) 5b. Right Arm: Motor (10-second hold) - 0(No drift) 6a. Left Leg: Motor (5-second hold - always test supine) - 1(Drift) 6b. Right Leg: Motor (5-second hold - always test supine) - 0(No drift) 7. Limb Ataxia (finger/nose \T\ heel/dailey - test with eyes open) - 0(Absent) 8. Sensory Loss (pinprick arms/legs/face) - 1(Mild to moderate loss) 9. Best Language: Aphasia (description/naming/reading) - 0(No aphasia) 10. Dysarthria (speech clarity - read or repeat words) - 0(Normal) 11. Extinction and Inattention (visual/tactile/auditory/spatial/personal) - 0(No abnormality) Initials: NIH Stroke Scale - NIH Stroke Score Date: 10/25/2020 Time: 09:03 Total Score = 0 1a. Level of Consciousness (LOC) - 0(Alert) 1b. Level of Consciousness (LOC) (Year \T\ Age) - 0(Both) 1c. LOC Commands (Open \T\ Closes Eyes/Bindery Supervisor) - 0(Both) 2. Best Gaze (Lateral Gaze Paresis) - 0(Normal) 3. Visual Field Loss - 0(No visual loss) 4. Facial Palsy - 0(Normal) 5a. Left Arm: Motor (10-second hold) - 0(No drift) 5b. Right Arm: Motor (10-second hold) - 0(No drift) 6a. Left Leg: Motor (5-second hold - always test supine) - 0(No drift) 6b. Right Leg: Motor (5-second hold - always test supine) - 0(No drift) 7. Limb Ataxia (finger/nose \T\ heel/dailey - test with eyes open) - 0(Absent) 8. Sensory Loss (pinprick arms/legs/face) - 0(Normal) 9. Best Language: Aphasia (description/naming/reading) - 0(No aphasia) 10. Dysarthria (speech clarity - read or repeat words) - 0(Normal) 11. Extinction and Inattention (visual/tactile/auditory/spatial/personal) - 0(No abnormality) Initials: Signatures: Dispatcher [employer] Rubia Elizabeth 5 Chase Cabrera, RONEN RN Wood Murguia MD MD ma2 Corrections: (The following items were deleted from the chart) 07:54 07:51 The onset of the patients symptoms was October 25, 2020 at 06:00 [facility] 07:54 07:51 General: Appears distressed, uncomfortable, obese, Behavior is bp cooperative, appropriate for age, anxious, bp 07:54 07:51 Pain: Denies pain. bp bp 07:54 07:51 EENT: No deficits noted. bp bp 07:54 07:51 Neuro: Reports numbness in LEFT SIDE weakness in GENERALIZED bp bp 07:54 07:51 Cardiovascular: Rhythm is sinus tachycardia bp bp 07:54 07:51 Respiratory: No deficits noted. bp bp 07:54 07:51 GI: No signs and/or symptoms were reported involving the gastrointestinal bp system. bp 07:54 07:51 : No signs and/or symptoms were reported regarding the genitourinary bp system. bp 07:54 07:51 Derm: No deficits noted. bp bp 07:54 07:51 Musculoskeletal: No deficits noted. bp bp 08:01 07:49 Initial lab(s) drawn, by ED staff, sent to lab. EKG done, by ED staff, bp reviewed by Wood Bautista MD mh5 08:01 07:49 Maintain EMS IV. Dressing intact. Site clean \T\ dry. mh5 bp
[2020-10-25 11:44] VITALS: TEMP 97.8
[2020-10-25 11:45] VITALS: BP 165/94; O2SAT 100
--- NOTE | 2020-10-26 08:57 | EKG ---
Test Date: 2020-10-25 Test Time: 07:43:05 Internal Controls Manager: WANG MEASUREMENT RESULTS: Intervals: Rate: 96 [place]: 138 QRSD: 78 QT: 360 QTc: 454 [place]: P: 40 AZ: 138 QRS: 17 T: 38 INTERPRETIVE STATEMENTS: Normal sinus rhythm Nonspecific T wave abnormality Abnormal ECG Compared to ECG 09/23/2020 12:05:59 Sinus tachycardia no longer present T-wave abnormality still present Electronically Signed On 10-26-20 08:55:25 CDT by Eze Cheng
== END 2020-10-25 11:39 | disposition home or self-care (01) ==
LOC: ER 07:29
DX: R53.1 Weakness (principal); I10 Essential (primary) hypertension; E11.9 Type 2 diabetes mellitus without complications; F41.8 Other specified anxiety disorders; Z88.0 Allergy status to penicillin; Z88.1 Allergy status to other antibiotic agents
CPT/HCPCS: 96361; 93005; 85025; 80048; 36415; 85610; 82947; 85730; 70450; 71045; 96360; 99284; J7030

== ENCOUNTER 2020-10-25 13:47 | Emergency (ER) | payer BC ==
--- NOTE | 2020-10-25 14:28 | ER ---
Nurse's Notes [facility] Name: Vanessa Young Age: 50 yrs Sex: Female : 1970 Arrival Date: 10/25/2020 Time: 13:55 Bed Waiting Private MD: Diagnosis: ED Course: 10/25 13:55 Patient arrived in ED. ds1 14:10 Patient's name was called from ER lobby. No response. Unable to locate patient. Will aa5 disposition as left without being seen by a provider. 14:18 Patient's name was called from ER lobby. No response. Unable to locate patient. Will aa5 disposition as left without being seen by a provider. 14:28 Wodo Crews MD is Attending Physician. aa5 Administered Medications: No medications were administered Outcome: 14:28 Patient left the ED. aa5 Signatures: Emily Brandon ds1 Meryl Lechuga RN RN aa5
== END 2020-10-25 14:28 | disposition left against medical advice (07) ==
LOC: ER 13:47
DX: Z02.9 Encounter for administrative examinations, unspecified (principal)

== ENCOUNTER 2021-01-05 13:37 | Emergency (ER) | payer BC ==
[2021-01-05] MEDS ORDERED: HYDROCODONE/APAP 10/325 TAB ONE (15:10)
[2021-01-05] MEDS ORDERED: DIAZEPAM 5 MG TABLET ONE (15:10)
[2021-01-05] MEDS ORDERED: KETOROLAC 30 MG/ML INJ ONE (15:11)
--- NOTE | 2021-01-05 15:31 | RAD REPORT ---
EXAM DESCRIPTION: CT - C Spine Wo Con - 01/05/2021 3:13 pm CLINICAL HISTORY: Left arm radiculopathy COMPARISON: None. TECHNIQUE: Computed axial tomography of the cervical spine were obtained with sagittal and coronal r econstruction images generated and reviewed. All CT scans are performed using dose optimization technique as appropriate and may include automated exposure control or mA/KV adjustment according to patient size. FINDINGS: A cervical fracture is not seen. No dislocation Small left paracentral disc herniation suspected at C5-6. Disc bulge and osteophytes C5-6 mildly encroach upon the thecal sac. Mild to moderate narrowing of th e right and mild narrowing left neural foramina IMPRESSION: A cervical fracture is not seen. Small left paracentral disc herniation is suspected C5-6 Spondylosis C6-7 resulting in mild to moderate right and mild left foraminal stenosis Nonemergent MRI may be helpful for further evaluation
--- NOTE | 2021-01-05 15:36 | RAD REPORT ---
EXAM DESCRIPTION: CTSpine Lumbar Wo Con01/05/2021 3:13 pm CLINICAL HISTORY: Left leg radiculopathy COMPARISON: August 2020 TECHNIQUE: Computed axial tomography lumbar spine was obtained with coronal and sagittal reconstruct ion. All CT scans are performed using dose optimization technique as appropriate and may include automated exposure control or mA/KV adjustment according to patient size. FINDINGS: No fracture is seen. No dislocation is noted. A high-grade stenosis is not seen. Postsurgical changes involve L5-S1. Artifact from the hardware obscures detail somewhat. Osteophyte, disc bulge and bone plug abut the left S1 nerve root IMPRESSION: Postsurgical changes involve L5-S1. Artifact from the hardware obscures detail somewhat. Osteophyte, disc bulge and bone plug abut the left S1 nerve root
--- NOTE | 2021-01-05 15:52 | ER ---
Nurse's Notes [facility] Name: Vanessa Young Age: 50 yrs Sex: Female : 1970 Arrival Date: 01/05/2021 Time: 13:40 Bed 25 Private MD: Diagnosis: Low back pain;Strain of muscle, fascia and tendon at neck level;Fall (on) (from) other stairs and steps-Curb Presentation: 01/05 13:43 Chief complaint: Patient states: "I had pins placed in my back last August and jd3 recently the pin has shifted and yesterday I stepped down wrong and I am having pain that is in my left side of my neck and come down into my left arm/hands and down into my legs/feet.". Coronavirus screen: At this time, the client does not indicate any symptoms associated with coronavirus-19. Ebola Screen: Patient negative for fever greater than or equal to 101.5 degrees Fahrenheit, and additional compatible Ebola Virus Disease symptoms. Initial Sepsis Screen: Does the patient meet any 2 criteria? No. Patient's initial sepsis screen is negative. Does the patient have a suspected source of infection? No. Patient's initial sepsis screen is negative. Risk Assessment: Do you want to hurt yourself or someone else? Patient reports no desire to harm self or others. Onset of symptoms was January 04, 2021. 13:43 Method Of Arrival: Wheelchair [facility] 13:43 Acuity: CLIFFORD 3 jd3 ENVIRONMENTAL SERVICES DIRECTOR: 13:46 LMP 12/05/2020 j Historical: - Allergies: 13:46 Bactrim; jd3 13:46 PENICILLINS; jd3 - Home Meds: 13:46 escitalopram oxalate 20 mg Oral tab once daily [Active]; gabapentin 600 mg Oral tab 1 jd3 tab 3 times per day for Neuropathic Pain [Active]; glyburide 2.5 mg Oral tab 1 tab once daily [Active]; lisinopril 20 mg Oral tab 1 tab once daily [Active]; metformin 750 mg Oral Tb24 1 tab twice a day [Active]; ozempic [Active]; Tresiba FlexTouch U-200 200 unit/mL (3 mL) subcutaneous inpn [Active]; - PMHx: 13:46 Depression; Anxiety; Diabetes - IDDM; GERD; Hypertension; Pancreatitis; jd3 - PSHx: 13:46 back sx; jd3 - Immunization history:: Adult Immunizations up to date. - Social history:: Smoking status: Patient/guardian denies using tobacco, but has a distant history of tobacco abuse. - Family history:: not pertinent. Screenin:15 Abuse screen: Denies threats or abuse. Denies injuries from another. Nutritional kg screening: No deficits noted. Tuberculosis screening: No symptoms or risk factors identified. Fall Risk No fall in past 12 months (0 pts). No secondary diagnosis (0 pts). No IV (0 pts). Ambulatory Aid- None/Bed Rest/Nurse Assist (0 pts). Gait- Impaired (20 pts.). Mental Status- Oriented to own ability (0 pts). Total [place] Fall Scale indicates Low Risk Score (25-44 pts). Fall prevention measures have been instituted. Side Rails Up X 2 Placed close to Nursing Station Frequent Obs/Assesments occuring As available Patient and Family Educated on Fall Prevention Program and strategies. Assessment: 14:12 General: Appears uncomfortable, Behavior is cooperative, appropriate for age, quiet. kg Pain: Complains of pain in Whole left side of body, neck, shoulder, arm, back, buttock, leg Pain radiates to Left side Pain currently is 8 out of 10 on a pain scale. at worst was 8 out of 10 on a pain scale. level that patient reports is acceptable is 5 out of 10 on a pain scale. Quality of pain is described as sharp, shooting, squeezing, Pain began 1 day ago. Is continuous, Alleviated by Laying flat Aggravated by moving around. Neuro: Level of Consciousness is awake, alert, obeys commands, Oriented to person, place, time, situation, Appropriate for age Tingling in left foot. Cardiovascular: No deficits noted. Respiratory: No deficits noted. GI: No deficits noted. : No deficits noted. EENT: No deficits noted. Derm: No deficits noted. Musculoskeletal: Reports pain in Left side. Vital Signs: 13:46 BP 137 / 93; Pulse 91; Resp 16 S; Temp 97.7(TE); Pulse Ox 99% on R/A; Weight 77.11 kg jd3 (R); Height 5 ft. 4 in. (162.56 cm) (R); Pain 8/10; 14:00 BP 124 / 78; Pulse 80; Resp 20; Pulse Ox 99% on R/A; kg 14:30 BP 128 / 88; Pulse 87; Resp 20; Pulse Ox 99% on R/A; kg 15:42 BP 132 / 75; Pulse 69; Resp 20; Pulse Ox 99% on R/A; kg 16:00 BP 123 / 72; Pulse 68; Resp 20; Pulse Ox 98% on R/A; kg 13:46 Body Mass Index 29.18 (77.11 kg, 162.56 cm) jd3 ED Course: 13:40 Patient arrived in ED. as 13:45 Triage completed. jd3 13:47 Arm band placed on. jd3 13:48 Kali Spivey MD is Attending Physician. asif 14:12 Fabienne Llanos, RONEN is Primary Nurse. kg 14:17 Patient has correct armband on for positive identification. Bed in low position. Call kg light in reach. Side rails up X2. 15:13 CT C Spine In Process Unspecified. EDMS 15:13 CT Lumbar Spine Wo Con In Process Unspecified. EDMS 16:08 No provider procedures requiring assistance completed. Patient did not have IV access kg during this emergency room visit. Administered Medications: 14:54 Drug: TORadol (ketorolac) 60 mg Route: IM; Site: right gluteus; kg 15:41 Follow up: Response: No adverse reaction; Pain is decreased kg 14:54 Drug: [place] (HYDROcodone-acetaminophen) 10 mg-325 mg 1 tabs Route: PO; kg 15:41 Follow up: Response: No adverse reaction; Pain is decreased kg 14:54 Drug: Valium (diazepam) 5 mg Route: PO; kg 15:41 Follow up: Response: No adverse reaction; Pain is decreased kg 15:41 Drug: Dexamethasone 4 mg Route: PO; kg 16:09 Follow up: Response: No adverse reaction; Pain is decreased kg Outcome: 15:51 Discharge ordered by . asif 16:09 Discharged to home ambulatory. kg 16:09 Condition: improved 16:09 Discharge instructions given to patient, Instructed on discharge instructions, follow up and referral plans. Demonstrated understanding of instructions, follow-up care, medications, Prescriptions given X 3. 16:14 Patient left the ED. kg Signatures: Dispatcher [employer] EDMS Patric, KaliMD MD asif franco Amelia as Davies, Jonathon, RN RN jd3 Fabienne Llanos RN RN kg Corrections: (The following items were deleted from the chart) 15:42 14:30 BP 124 / 78; Pulse 80bpm; Resp 20bpm; Pulse Ox 99% RA; kg kg
--- NOTE | 2021-01-05 15:52 | EDPHYS ---
Physician Documentation [facility] Name: Vanessa Young Age: 50 yrs Sex: Female : 1970 Arrival Date: 01/05/2021 Time: 13:40 Bed 25 Private MD: HARVEY Physician Kali Spivey HPI: 01/05 14:37 This 50 yrs old Female presents to ER via Wheelchair with complaints of Back asif Pain. 14:37 The patient presents with pain that is acute, and decreased range of motion, and an asif injury. The symptoms are located in the low back, thoracic area and lumbar area. Onset: The symptoms/episode began/occurred yesterday. The pain does not radiate. Associated signs and symptoms: The patient has no apparent associated signs or symptoms. The problem was sustained during a fall, while walking, off curb. Modifying factors: The patient symptoms are alleviated by remaining still, rest, the patient symptoms are aggravated by any movement, bending. Severity of symptoms: At their worst the symptoms were mild, moderate, in the emergency department the symptoms are unchanged. The patient has not experienced similar symptoms in the past. 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 jd3 Historical: - Allergies: 13:46 Bactrim; jd3 13:46 PENICILLINS; jd3 - Home Meds: 13:46 escitalopram oxalate 20 mg Oral tab once daily [Active]; gabapentin 600 mg Oral tab 1 jd3 tab 3 times per day for Neuropathic Pain [Active]; glyburide 2.5 mg Oral tab 1 tab once daily [Active]; lisinopril 20 mg Oral tab 1 tab once daily [Active]; metformin 750 mg Oral Tb24 1 tab twice a day [Active]; ozempic [Active]; Tresiba FlexTouch U-200 200 unit/mL (3 mL) subcutaneous inpn [Active]; - PMHx: 13:46 Depression; Anxiety; Diabetes - IDDM; GERD; Hypertension; Pancreatitis; jd3 - PSHx: 13:46 back sx; jd3 - Immunization history:: Adult Immunizations up to date. - Social history:: Smoking status: Patient/guardian denies using tobacco, but has a distant history of tobacco abuse. - Family history:: not pertinent. ROS: 14:37 Constitutional: Negative for fever, chills, and weight loss, Eyes: Negative for injury, asif pain, redness, and discharge, ENT: Negative for injury, pain, and discharge, Neck: Negative for injury, pain, and swelling, Cardiovascular: Negative for chest pain, palpitations, and edema, Respiratory: Negative for shortness of breath, cough, wheezing, and pleuritic chest pain, Abdomen/GI: Negative for abdominal pain, nausea, vomiting, diarrhea, and constipation, : Negative for injury, bleeding, discharge, and swelling, Skin: Negative for injury, rash, and discoloration, Neuro: Negative for headache, weakness, numbness, tingling, and seizure, Psych: Negative for depression, anxiety, suicide ideation, homicidal ideation, and hallucinations, Allergy/Immunology: Negative for hives, rash, and allergies, Endocrine: Negative for neck swelling, polydipsia, polyuria, polyphagia, and marked weight changes. 14:37 Back: Positive for decreased range of motion, pain at rest, pain with movement, radiated pain. Exam: 14:37 Constitutional: This is a well developed, well nourished patient who is awake, alert, asif and in no acute distress. Head/Face: Normocephalic, atraumatic. Eyes: Pupils equal round and reactive to light, extra-ocular motions intact. Lids and lashes normal. Conjunctiva and sclera are non-icteric and not injected. Cornea within normal limits. Periorbital areas with no swelling, redness, or edema. ENT: Nares patent. No nasal discharge, no septal abnormalities noted. Tympanic membranes are normal and external auditory canals are clear. Oropharynx with no redness, swelling, or masses, exudates, or evidence of obstruction, uvula midline. Mucous membranes moist. Neck: Trachea midline, no thyromegaly or masses palpated, and no cervical lymphadenopathy. Supple, full range of motion without nuchal rigidity, or vertebral point tenderness. No Meningismus. Chest/axilla: Normal chest wall appearance and motion. Nontender with no deformity. No lesions are appreciated. Cardiovascular: Regular rate and rhythm with a normal S1 and S2. No gallops, murmurs, or rubs. Normal PMI, no JVD. No pulse deficits. Respiratory: Lungs have equal breath sounds bilaterally, clear to auscultation and percussion. No rales, rhonchi or wheezes noted. No increased work of breathing, no retractions or nasal flaring. Abdomen/GI: Soft, non-tender, with normal bowel sounds. No distension or tympany. No guarding or rebound. No evidence of tenderness throughout. Skin: Warm, dry with normal turgor. Normal color with no rashes, no lesions, and no evidence of cellulitis. MS/ Extremity: Pulses equal, no cyanosis. Neurovascular intact. Full, normal range of motion. Neuro: Awake and alert, GCS 15, oriented to person, place, time, and situation. Cranial nerves II-XII grossly intact. Motor strength 5/5 in all extremities. Sensory grossly intact. Cerebellar exam normal. Normal gait. Psych: Awake, alert, with orientation to person, place and time. Behavior, mood, and affect are within normal limits. 14:37 Back: pain, that is mild, ROM is painful, normal spinal alignment noted, CVA tenderness, is absent, muscle spasm, is appreciated in the left trapezius, right trapezius, left low back, left mid back, right mid back and right low back. Vital Signs: 13:46 BP 137 / 93; Pulse 91; Resp 16 S; Temp 97.7(TE); Pulse Ox 99% on R/A; Weight 77.11 kg jd3 (R); Height 5 ft. 4 in. (162.56 cm) (R); Pain 8/10; 14:00 BP 124 / 78; Pulse 80; Resp 20; Pulse Ox 99% on R/A; kg 14:30 BP 128 / 88; Pulse 87; Resp 20; Pulse Ox 99% on R/A; kg 15:42 BP 132 / 75; Pulse 69; Resp 20; Pulse Ox 99% on R/A; kg 16:00 BP 123 / 72; Pulse 68; Resp 20; Pulse Ox 98% on R/A; kg 13:46 Body Mass Index 29.18 (77.11 kg, 162.56 cm) jd3 MDM: 13:48 Patient medically screened. [facility] 01/05 15:48 Order name: Glucose, Ancillary Testing; Complete Time: 15:51 EDMS 01/05 14:47 Order name: CT C Spine; Complete Time: 15:51 [facility] 01/05 14:47 Order name: CT Lumbar Spine Wo Con; Complete Time: 15:51 [facility] 01/05 14:51 Order name: Blood Glucose Level; Complete Time: 15:41 [facility] Administered Medications: 14:54 Drug: TORadol (ketorolac) 60 mg Route: IM; Site: right gluteus; kg 15:41 Follow up: Response: No adverse reaction; Pain is decreased kg 14:54 Drug: [place] (HYDROcodone-acetaminophen) 10 mg-325 mg 1 tabs Route: PO; kg 15:41 Follow up: Response: No adverse reaction; Pain is decreased kg 14:54 Drug: Valium (diazepam) 5 mg Route: PO; kg 15:41 Follow up: Response: No adverse reaction; Pain is decreased kg 15:41 Drug: Dexamethasone 4 mg Route: PO; kg 16:09 Follow up: Response: No adverse reaction; Pain is decreased kg Disposition: 01/05/21 15:51 Discharged to Home. Impression: Low back pain, Strain of muscle, fascia and tendon at neck level, Fall (on) (from) other stairs and steps - Curb. - Condition is Stable. - Discharge Instructions: Back Pain, Adult, Chronic Back Pain, Muscle Strain, Musculoskeletal Pain, Back Injury Prevention, [id number], Cervical Sprain, [id number]-[id number], Back Pain, Adult, Nvev-gq-Vzic, Radicular Pain, Back Injury Prevention. - Prescriptions for Ibuprofen 600 mg Oral Tablet - take 1 tablet by ORAL route every 6 hours As needed take with food; 20 tablet. Medrol (Glen) 4 mg Oral Tablets, Dose Pack - take 1 tablet by ORAL route as directed - follow package instructions; 1 packet. Cyclobenzaprine 5 mg Oral Tablet - take 1 tablet by ORAL route 3 times per day As needed; 15 tablet. - Medication Reconciliation Form, Thank You Letter, Antibiotic Education, Prescription Opioid Use form. - Follow up: Private Physician; When: 2 - 3 days; Reason: Recheck today's complaints, Continuance of care, Re-evaluation by your physician. - Problem is new. - Symptoms have improved. Signatures: Dispatcher [employer] Kali Reyes MD MD cha Davies, Jonathon, RN RN Fabienne Norton RN RN kg Corrections: (The following items were deleted from the chart) 16:14 15:51 01/05/2021 15:51 Discharged to Home. Impression: Low back pain; Strain of muscle, kg fascia and tendon at neck level; Fall (on) (from) other stairs and steps - Curb. Condition is Stable. Discharge Instructions: Back Pain, Adult, Chronic Back Pain, Muscle Strain, Musculoskeletal Pain, Back Injury Prevention, [id number]-zp-Praa, Cervical Sprain, Fbcv-ga-[id number], Back Pain, Adult, Qkip-[id number]-Ttbu, Radicular Pain, Back Injury Prevention. Prescriptions for Ibuprofen 600 mg Oral Tablet - take 1 tablet by ORAL route every 6 hours As needed take with food; 20 tablet, Medrol (Glen) 4 mg Oral Tablets, Dose Pack - take 1 tablet by ORAL route as directed - follow package instructions; 1 packet, Cyclobenzaprine 5 mg Oral Tablet - take 1 tablet by ORAL route 3 times per day As needed; 15 tablet. and Forms are Medication Reconciliation Form, Thank You Letter, Antibiotic Education, Prescription Opioid Use. Follow up: Private Physician; When: 2 - 3 days; Reason: Recheck today's complaints, Continuance of care, Re-evaluation by your physician. Problem is new. Symptoms have improved. asif
[2021-01-05] MEDS ORDERED: dexAMETHasone 4 MG TAB ONE (16:00)
[2021-01-05 16:21] VITALS: TEMP 97.7
[2021-01-05 16:28] VITALS: BP 123/72; O2SAT 98
== END 2021-01-05 16:14 | disposition home or self-care (01) ==
LOC: ER 13:37
DX: S16.1XXA Strain of muscle, fascia and tendon at neck level, initial encounter (principal); W10.1XXA Fall (on)(from) sidewalk curb, initial encounter; Y93.01 Activity, walking, marching and hiking; E11.9 Type 2 diabetes mellitus without complications; F41.8 Other specified anxiety disorders; I10 Essential (primary) hypertension; Z88.0 Allergy status to penicillin; Z88.1 Allergy status to other antibiotic agents
CPT/HCPCS: 72125; 72131; 82947; 96372; 99283; J8540

== ENCOUNTER 2021-07-26 12:25 | Emergency (ER) | payer BC ==
--- OUTSIDE RECORDS SUMMARY | 2021-07-26 12:27 | XMS REPORT | Continuity of Care Document ---
:[address] [facility] Address [address] [place] [address] Care Team Providers Name Role Phone Vonda_Duran Attending Clinician Unavailable Vonda_A Admitting Clinician Unavailable Payers Payer Name Policy Type Policy Number Effective Date Expiration Date [facility] [place] [id number] Problems Condition Condition Condition Status Onset Resolution Last Treating Co mments Source Name Details Category Date Date Treatment Clinician Date Type 2 Type 2 Problem Active [facility] diabetes Diabetes 8-16 da mellitus Mellitus 00:00: Medica l 00 Group Anxiety Anxiety Problem Active [facility] 8-16 da 00:00: Medical 00 Group Essential Essential Problem Active [facility] hypertensi Hypertensi 8-16 da on on 00:00: Medical 00 Group Allergies, Adverse Reactions, Alerts Allergy Allergy Status Severity Reaction(s) Onset Inactive Treating Comm ents Source Name Type Date Date Clinician Bactrim Allergy Active Moderate Other [facility] to da substanc Medical e Group Social History Smoking Status Start Date Stop Date Source Former Smoker [facility] Medications Ordered Filled Start Stop Current Ordering Indication Dosage Frequency Signature Comments Components Source Medication Medication Date Date Medication? Clinician (SIG) Name Name hydroxyzine hydroxyzine No hydroxyzin [place] pamoate 50 pamoate 50 e pamoate da mg capsule mg capsule 50 mg Me dical TAKE TWO TAKE TWO capsule Grou p (2) (2) TAKE TWO CAPSULE(S) CAPSULE(S) (2) BY MOUTH AT BY MOUTH AT CAPSULE(S) BEDTIME. BEDTIME. BY MOUTH AT BEDTIME. lisinopril lisinopril No 1 Q1D lisinopril [facility] 10 mg 10 mg 10 mg da tablet Take tablet Take tablet Medical 1 tablet 1 tablet Take 1 Group every day every day tablet by oral by oral every day route. route. by oral route. metformin metformin No 1 BID metformin [place] ER 750 mg ER 750 mg ER 750 mg da tablet,exte tablet,exte tablet,ext Medical nded nded ended Group release 24 release 24 release 24 hr Take 1 hr Take 1 hr Take 1 tablet tablet tablet twice a day twice a day twice a by oral by oral day by route. route. oral route. Ozempic 1 Ozempic 1 No 5mg Ozempic 1 [facility] mg/dose (2 mg/dose (2 mg/dose (2 da mg/1.5 mL) mg/1.5 mL) mg/1.5 mL) Medical subcutaneou subcutaneou subcutaneo Group s pen s pen us pen injector injector injector Inject 5 mg Inject 5 mg Inject 5 by by mg by subcutaneou subcutaneou subcutaneo s route. s route. us route. Tresiba Tresiba No Tresiba [facility] FlexTouch FlexTouch FlexTouch da U-200 U-200 U-200 Medical insulin 200 insulin 200 insulin Group unit/mL (3 unit/mL (3 200 mL) mL) unit/mL (3 subcutaneou subcutaneou mL) s pen s pen subcutaneo INJECT 30 INJECT 30 us pen TO 40 UNITS TO 40 UNITS INJECT 30 UNDER THE UNDER THE TO 40 SKIN EVERY SKIN EVERY UNITS DAY DAY UNDER THE SKIN EVERY DAY aripiprazol aripiprazol No aripiprazo [place] e 2 mg e 2 mg le 2 mg da tablet TAKE tablet TAKE tablet Medical 1 TABLET BY 1 TABLET BY TAKE 1 Group MOUTH EVERY MOUTH EVERY TABLET BY EVENING EVENING MOUTH AFTER AFTER EVERY DINNER DINNER EVENING DIRECTED DIRECTED AFTER DINNER DIRECTED escitalopra escitalopra No 1 Q1D escitalopr [place] m 10 mg m 10 mg am 10 mg da tablet Take tablet Take tablet Medical 1 tablet 1 tablet Take 1 Group every day every day tablet by oral by oral every day route. route. by oral route. Immunizations Ordered Immunization Filled Immunization Date Status Commen ts Source Name Name COVID-19, mRNA, COVID-19, mRNA, 2020-09-15 Completed [facility] LNP-S, PF, 100 LNP-S, PF, 100 00:00:00 Medica l Group mcg/0.5 mL dose mcg/0.5 mL dose COVID-19, mRNA, COVID-19, mRNA, 2020-08-05 Completed [facility] yan[facility] LNP-S, PF, 100 LNP-S, PF, 100 00:00:00 Medica l Group mcg/0.5 mL dose mcg/0.5 mL dose influenza, influenza, 2020-07-31 Completed [place] injectable, injectable, 00:00:00 Medical Grou p quadrivalent quadrivalent Vital Signs Vital Name Observation Time Observation Value Comments Source BP Diastolic 2020-11-17 00:00:00 81 mm[Hg] [facility] Height 2020-11-17 00:00:00 54 [in_i] [facility] BMI (Body Mass 2020-11-17 00:00:00 47.1 kg/m2 [facility] BP Systolic 2020-11-17 00:00:00 130 mm[Hg] [facility] Body Weight 2020-11-17 00:00:00 3126 [oz_av] [facility] Procedures Procedure Date / Time Performed Performing Clinician Sourc e Tubal Ligation [facility] Cholecystectomy [facility] Encounters Start End Encounter Admission Attending Care Care Encounter Source Date/Time Date/Time Type Type Clinicians Facility Department ID 2020-11-17 2020-11-17 Outpatient Koudela[facility]A [facility] [id number] [place] 09:59:00 09:59:00 [facility] 2020-11-17 2020-11-17 Outpatient [facility] [id number] [place] 09:59:00 09:59:00 0428 [facility] 2020-11-17 2020-11-17 [place] [id number] [place] 09:59:00 09:59:00 0429 [facility] 2020-11-17 2020-11-17 Joanie [facility] [place] - [id number] [facility] 00:00:00 00:00:00 [facility] usman Ferrari PA-C: [address] [facility] [address], [place] [address] , Ph. 2020-11-16 2020-11-16 Outpatient Sindy [facility] [id number] [place] 12:48:00 12:48:00 0426 Medical [facility] Results This patient has no known results.
--- NOTE | 2021-07-26 14:17 | RAD REPORT ---
EXAM DESCRIPTION: RAD - Foot Right 3 View - 07/26/2021 1:59 pm CLINICAL HISTORY: PAIN COMPARISON: No comparisons FINDINGS: Mild soft tissue swelling affects the great toe. No radiopaque foreign body seen. No acute fracture or dislocation is evident.
--- NOTE | 2021-07-26 14:29 | EDPHYS ---
Physician Documentation [facility] Name: Vanessa Young Age: 51 yrs Sex: Female : 1970 Arrival Date: 07/26/2021 Time: 12:25 Bed Waiting Private MD: Kali Salazar HPI: 07/26 14:25 This 51 yrs old Female presents to ER via Ambulatory with complaints of Toe Injury. kb 14:25 The patient presents with an abrasion, an injury, pain, that is acute, swelling, kb tenderness. The complaints affect the right first toe. Context: The problem was sustained at home, resulted from a heavy object falling, the patient can fully bear weight, the patient is able to ambulate. Onset: The symptoms/episode began/occurred yesterday. Modifying factors: The symptoms are alleviated by nothing, the symptoms are aggravated by weight bearing. Associated signs and symptoms: Pertinent positives: swelling, Pertinent negatives: calf tenderness, fever, nausea, numbness, rash, tingling, vomiting, warmth, weakness. Severity of symptoms: At their worst the symptoms were mild, moderate, in the emergency department the symptoms are unchanged. The patient has not experienced similar symptoms in the past. The patient has not recently seen a physician. Historical: - Allergies: 13:24 Bactrim; iw - PMHx: 13:24 Anxiety; Depression; Diabetes - IDDM; GERD; Hypertension; Pancreatitis; iw - PSHx: 13:24 Cholecystectomy; iw - Immunization history:: Adult Immunizations up to date, Client reports receiving the 2nd dose of the Covid vaccine. - Social history:: Smoking status: Patient denies any tobacco usage or history of. ROS: 14:24 Constitutional: Negative for fever, chills, and weight loss. kb 14:24 MS/extremity: Positive for pain, swelling, tenderness, of the right first toe. 14:24 Skin: Positive for abrasion(s), of the right first toe. 14:24 All other systems are negative. Exam: 14:24 Constitutional: This is a well developed, well nourished patient who is awake, alert, kb and in no acute distress. Head/Face: Normocephalic, atraumatic. ENT: Moist Mucous membranes Respiratory: Respirations even and unlabored. No increased work of breathing. Talking in full sentences Neuro: Awake and alert, GCS 15, oriented to person, place, time, and situation. Moves all extremities. Normal gait. Psych: Awake, alert, with orientation to person, place and time. Behavior, mood, and affect are within normal limits. 14:24 Musculoskeletal/extremity: Extremities: grossly normal except: noted in the right first toe: abrasion, pain, swelling, tenderness, ROM: intact in all extremities, Circulation is intact in all extremities. Sensation intact. Weight bearing: able to fully bear weight. 14:24 Skin: injury, abrasion(s), moderate sized abrasion noted, of the right first toe. Vital Signs: 13:23 BP 105 / 76; Pulse 98; Resp 18; Temp 97.6; Pulse Ox 96% ; Weight 77.11 kg; Height 5 ft. iw 4 in. (162.56 cm); Pain 9/10; 13:23 Body Mass Index 29.18 (77.11 kg, 162.56 cm) iw MDM: 13:31 Patient medically screened. kb 14:14 Data reviewed: vital signs, nurses notes. Data interpreted: Pulse oximetry: on room air kb is 96 %. Interpretation: normal. 14:24 Counseling: I had a detailed discussion with the patient and/or guardian regarding: the kb historical points, exam findings, and any diagnostic results supporting the discharge/admit diagnosis, radiology results, the need for outpatient follow up, a family practitioner, to return to the emergency department if symptoms worsen or persist or if there are any questions or concerns that arise at home. 07/26 13:23 Order name: Foot Right 3 View XRAY; Complete Time: 14:21 iw Administered Medications: No medications were administered Disposition: 07/27 08:43 Co-signature as Attending Physician, Kali Spivey MD I agree with the assessment and asif plan of care. Disposition Summary: 07/26/21 14:27 Discharge Ordered Location: Home kb Condition: Stable kb Diagnosis - Contusion of great toe without damage to nail - right kb Followup: kb - With: Emergency Department - When: As needed - Reason: Worsening of condition Followup: kb - With: Private Physician - When: 2 - 3 days - Reason: Recheck today's complaints, Continuance of care, Re-evaluation by your physician Discharge Instructions: - Discharge Summary Sheet kb - Abrasion, [id number]-[id number]-[id number] kb - Foot Contusion, [id number] kb Forms: - Medication Reconciliation Form kb - Thank You Letter kb - Antibiotic Education kb - Prescription Opioid Use kb - Work release form iw Prescriptions: - Cephalexin 500 mg Oral Capsule - take 1 capsule by ORAL route every 8 hours for 10 days; 30 capsule; Refills: 0, kb Product Selection Permitted Signatures: Dispatcher [employer] Elizabeth Perry, FIELD OBSERVER-C FIELD OBSERVER-Kali Hooks MD MD cha Williams, Irene, RN RN iw
--- NOTE | 2021-07-26 14:29 | ER ---
Nurse's Notes [facility] Name: Vanessa Young Age: 51 yrs Sex: Female : 1970 Arrival Date: 07/26/2021 Time: 12:25 Bed Waiting Private MD: Diagnosis: Contusion of great toe without damage to nail-right Presentation: 07/26 13:23 Chief complaint: Patient states: dropped a 10lb picture frame on toe last night. iw Coronavirus screen: Vaccine status: Patient reports receiving the 2nd dose of the covid vaccine. Ebola Screen: Patient negative for fever greater than or equal to 101.5 degrees Fahrenheit, and additional compatible Ebola Virus Disease symptoms Patient denies exposure to infectious person. Patient denies travel to an Ebola-affected area in the 21 days before illness onset. No symptoms or risks identified at this time. Initial Sepsis Screen: Does the patient meet any 2 criteria? No. Patient's initial sepsis screen is negative. Does the patient have a suspected source of infection? No. Patient's initial sepsis screen is negative. Risk Assessment: Do you want to hurt yourself or someone else? Patient reports no desire to harm self or others. Onset of symptoms was July 25, 2021. 13:23 Method Of Arrival: Ambulatory iw 13:23 Acuity: CLIFF[place] 5 iw Triage Assessment: 13:24 General: Appears in no apparent distress. comfortable, Behavior is calm, cooperative. iw Pain: Complains of pain in right first toe. Historical: - Allergies: 13:24 Bactrim; iw - PMHx: 13:24 Anxiety; Depression; Diabetes - IDDM; GERD; Hypertension; Pancreatitis; iw - PSHx: 13:24 Cholecystectomy; iw - Immunization history:: Adult Immunizations up to date, Client reports receiving the 2nd dose of the Covid vaccine. - Social history:: Smoking status: Patient denies any tobacco usage or history of. Vital Signs: 13:23 BP 105 / 76; Pulse 98; Resp 18; Temp 97.6; Pulse Ox 96% ; Weight 77.11 kg; Height 5 ft. iw 4 in. (162.56 cm); Pain 9/10; 13:23 Body Mass Index 29.18 (77.11 kg, 162.56 cm) iw ED Course: 12:25 Patient arrived in ED. as 13:03 Elizabeth Basilio FNP-C is [facility]. kb 13:03 Kali Spivey MD is Attending Physician. kb 13:24 Triage completed. iw 13:25 Arm band placed on right wrist. iw 13:58 Foot Right 3 View XRAY In Process Unspecified. EDMS 14:59 Oanh Reynolds, RN is Primary Nurse. iw Administered Medications: No medications were administered Outcome: 14:27 Discharge ordered by . kb 15:00 Patient left the ED. iw Signatures: Dispatcher [employer] EDMS Elizabeth Basilio FNP-C TURBINE OPERATOR-Anum Del Cid as Oanh Reynolds, RN RN iw
[2021-07-26 15:04] VITALS: BP 105/76; TEMP 97.6; O2SAT 96
== END 2021-07-26 15:00 | disposition home or self-care (01) ==
LOC: ER 12:25
DX: S90.111A Contusion of right great toe without damage to nail, initial encounter (principal); W22.8XXA Striking against or struck by other objects, initial encounter; I10 Essential (primary) hypertension; Z88.1 Allergy status to other antibiotic agents
CPT/HCPCS: 99282

== ENCOUNTER 2021-08-26 04:58 | Emergency (ER) | payer BC ==
--- OUTSIDE RECORDS SUMMARY | 2021-08-26 05:01 | XMS REPORT | Continuity of Care Document ---
:1970 Author Organization [facility] Address [address] [place] [address] Care Team Providers Name Role Phone Vonda_Duran Attending Clinician Unavailable Vonda_A Admitting Clinician Unavailable Payers Payer Name Policy Type Policy Number Effective Date Expiration Date [facility]/ [place] [id number] Problems Condition Condition Condition Status Onset Resolution [...] Start Date Stop Date Source Former Smoker [facility] Medications Ordered Filled Start [...] mcg/0.5 mL dose influenza, influenza, 2020-07-31 Completed [facility] injectable, injectable, 00:00:00 [facility] quadrivalent quadrivalent Vital Signs Vital Name Observation Time Observation Value Comments Source BP Diastolic 2020-11-17 00:00:00 81 mm[Hg] [facility] Height 2020-11-17 00:00:00 54 [in_i] [facility] BMI (Body Mass 2020-11-17 00:00:00 47.1 kg/m2 [facility] [employer] [facility] BP Systolic 2020-11-17 00:00:00 130 mm[Hg] [facility] Body Weight 2020-11-17 00:00:00 3126 [oz_av] [facility] Procedures Procedure Date / Time Performed Performing Clinician Sourc e Tubal Ligation [facility] Cholecystectomy [facility] Encounters Start End Encounter Admission Attending Care Care Encounter Source Date/Time Date/Time Type Type Clinicians Facility Department ID 2020-11-17 2020-11-17 Outpatient Koudela_A [facility] [id number] [place] 09:59:00 09:59:00 [facility] 2020-11-17 2020-11-17 Outpatient K[facility]ela[facility]A [facility] [id number] [place] 09:59:00 09:59:00 0428 [facility] 2020-11-17 2020-11-17 [place] [id number] [place] 09:59:00 09:59:00 0429 [facility] 2020-11-17 2020-11-17 Joanie [facility] [place] - [id number] M [facility] 00:00:00 00:00:00 Discovery usman Ferrari PA-C: [address] [facility] [address], [place] [address] , Ph. 2020-11-16 2020-11-16 Outpatient Sindy [facility] [id number] [place] 12:48:00 12:48:00 0426 [facility] Results This patient has no known results.
[2021-08-26] MEDS ORDERED: MORPHINE 4 MG/ML SYR ONE ×2 (05:13→07:11)
[2021-08-26] MEDS ORDERED: ONDANSETRON 4 MG/2 ML VIAL ONE (05:14)
[2021-08-26] MEDS ORDERED: NA CHLORIDE 0.9% 1,000 ML ONE (05:14)
[2021-08-26 05:54] LABS: Absolute Lymphocytes (CBC) 2.5 K/uL (0.7-4.9); Hematocrit 36.9 % (36.0-45.0); Lymphocytes % 41.8 % (15.3-44.8); MPV 8.7 fL (7.6-11.3)
[2021-08-26 06:01] LABS: Albumin 2.9 g/dL (3.4-5.0); Bilirubin Direct 0.1 mg/dL (0-0.2); Bilirubin Total 0.5 mg/dL (0.2-1.0); Potassium 3.8 mmol/L (3.5-5.1); Protein, Total 6.4 g/dL (6.4-8.2)
[2021-08-26 06:02] LABS: Urine Blood Trace-intact (Negative); Urine Glucose Trace (Negative); Urine Protein Negative (Negative); Urine Specific Gravity 1.025 (1.005-1.030); Urine pH 5.5 (5.0-7.0)
[2021-08-26 07:08] LABS: Urine RBC <5 /HPF (NONE SEEN)
[2021-08-26 07:09] LABS: Urine Bacteria >50 /HPF (<20)
--- NOTE | 2021-08-26 07:38 | RAD REPORT ---
EXAM DESCRIPTION: CT - Abdomen Pelvis W Contrast - 08/26/2021 6:33 am CLINICAL HISTORY: Abdominal pain COMPARISON: 2019 TECHNIQUE: Computed axial tomography of the abdomen pelvis was obtained. 100 cc Isovue-300 was admin istered intravenously. Oral contrast was not requested which limits evaluation of bowel. All CT scans are performed using dose optimization technique as appropriate and may include automated exposure control or mA/KV adjustment according to patient size. FINDINGS: The liver, spleen, pancreas, adrenal and kidneys appear unremarkable. There is no evidence of diverticulitis. Normal appendix. Postsurgical changes involve lumbar spine. 2.2 centimeter right ovarian cyst without significant free fluid. Cholecystectomy IMPRESSION: 2 centimeter right ovarian cyst without significant free fluid. Prominence of the common bile duct often is physiologic in a patient status post cholecystectomy. Pat hology such as a stricture or stone within the duct can also result in this appearance should be rpi elated clinically and with appropriate lab values
[2021-08-26] MEDS ORDERED: CIPROFLOXACIN 400mg IV 400 MG/200 ML BAG IV ONE (07:53)
--- NOTE | 2021-08-26 07:56 | ER ---
Nurse's Notes [facility] Name: Vanessa Young Age: 51 yrs Sex: Female : 1970 Arrival Date: 08/26/2021 Time: 04:59 Bed 15 Private MD: Diagnosis: Left sided abdominal pain. Urinary tract infection. Right ovarian cyst Presentation: 08/26 05:03 Chief complaint: Patient states: c/o L abdominal pain that radiates to back. patient al4 was seen yesterday at [facility], but states she woke up today feeling worse. Coronavirus screen: Vaccine status: Patient reports receiving the 2nd dose of the covid vaccine. Ebola Screen: No symptoms or risks identified at this time. Initial Sepsis Screen: Does the patient meet any 2 criteria? No. Patient's initial sepsis screen is negative. Does the patient have a suspected source of infection? No. Patient's initial sepsis screen is negative. Risk Assessment: Do you want to hurt yourself or someone else? Patient reports no desire to harm self or others. Onset of symptoms was August 25, 2021. 05:03 Method Of Arrival: Ambulatory al4 05:03 Acuity: CLIFFORD 3 al4 Triage Assessment: 05:05 General: Appears in no apparent distress. uncomfortable, Behavior is calm, cooperative, al4 appropriate for age, crying. Pain: Complains of pain in abdomen Pain radiates to back Pain currently is 10 out of 10 on a pain scale. Neuro: Level of Consciousness is awake, alert, obeys commands, Oriented to person, place, time, situation. Cardiovascular: Capillary refill < 3 seconds Patient's skin is warm and dry. Respiratory: Airway is patent Respiratory effort is even, unlabored, Respiratory pattern is regular, symmetrical. GI: Reports nausea. Musculoskeletal: Range of motion: intact in all extremities. 05:07 General: ERP at bedside assessing patient.. 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 - sv1 Historical: - Allergies: 05:05 Bactrim; al4 05:05 PENICILLINS; al4 - Home Meds: 05:20 escitalopram oxalate 20 mg Oral tab once daily [Active]; glyburide 2.5 mg Oral tab 1 sv1 tab once daily [Active]; gabapentin 600 mg Oral tab 1 tab 3 times per day for Neuropathic Pain [Active]; lisinopril 20 mg Oral tab 1 tab once daily [Active]; metformin 750 mg Oral Tb24 1 tab twice a day [Active]; ozempic [Active]; Tresiba FlexTouch U-200 200 unit/mL (3 mL) subcutaneous inpn [Active]; - PMHx: 05:05 Anxiety; Depression; Diabetes - IDDM; GERD; Hypertension; Pancreatitis; al4 - PSHx: 05:05 Cholecystectomy; al4 - Immunization history:: Adult Immunizations up to date, Client reports receiving the 2nd dose of the Covid vaccine, Flu vaccine is up to date. - Social history:: Smoking status: Patient denies any tobacco usage or history of. Patient/guardian denies using alcohol. Screenin:19 Abuse screen: Denies threats or abuse. Nutritional screening: No deficits noted. sv1 Tuberculosis screening: No symptoms or risk factors identified. Fall Risk None identified. Assessment: 05:18 Reassessment: labs collected and sent. . sv1 06:18 Reassessment: To [facility] via [facility].. sv1 Vital Signs: 05:03 BP 137 / 83; Pulse 72; Resp 18; Temp 97.8; Pulse Ox 96% ; Weight 81.65 kg; Height 5 ft. al4 4 in. (162.56 cm); Pain 10/10; 06:47 BP 120 / 77 LA Supine (auto/); Pulse 65 MON; Resp 16 S; Pulse Ox 98% on R/A; Pain 8/10; sv1 09:08 BP 141 / 80; Pulse 70; Resp 18; Pulse Ox 94% on R/A; ic1 05:03 Body Mass Index 30.90 (81.65 kg, 162.56 cm) al4 ED Course: 04:59 Patient arrived in ED. wm 05:00 Alexander Hyman MD is Attending Physician. pkl 05:05 Triage completed. al4 05:07 Arm band placed on. al4 05:17 Kong Benton, RONEN is Primary Nurse. sv1 05:17 Basic Metabolic Panel Sent. sv1 05:18 CBC with Diff Sent. sv1 05:18 Hepatic Function Sent. sv1 05:18 Lipase Sent. sv1 05:19 Patient has correct armband on for positive identification. Placed in gown. Bed in low sv1 position. Call light in reach. Side rails up X2. 06:06 Urine Culture Sent. sv1 06:06 Urine Microscopic Only Sent. sv1 06:33 CT Abd/Pelvis - IV Contrast Only In Process Unspecified. EDMS 09:08 IV discontinued, intact, bleeding controlled, No redness/swelling at site. Pressure ic1 dressing applied. Administered Medications: 05:16 Drug: NS 0.9% 1000 ml Route: IV; Rate: 1000 ml; Site: right antecubital; sf1 05:16 Drug: morphine 4 mg Route: IVP; Site: right antecubital; sf1 05:51 Follow up: Response: No adverse reaction; Pain is decreased sv1 05:16 Drug: Zofran (Ondansetron) 4 mg Route: IVP; Site: right antecubital; sf1 05:51 Follow up: Response: Nausea is decreased sv1 07:14 Drug: morphine 4 mg Route: IVP; Site: right antecubital; ic1 09:09 Follow up: Response: No adverse reaction; Pain is decreased ic1 07:59 Drug: Cipro (ciprofloxacin) 400 mg Volume: 200 ml; Route: IVPB; Infused Over: 60 mins; ic1 Site: right antecubital; 09:08 Follow up: IV Status: Completed infusion; IV Intake: 200ml ic1 Intake: 09:08 IV: 200ml; Total: 200ml. ic1 Outcome: 07:56 Discharge ordered by . hugo 09:08 Discharged to ic1 09:08 Discharged to home ambulatory. 09:08 Condition: stable 09:08 Discharge instructions given to patient, Instructed on discharge instructions, follow up and referral plans. Demonstrated understanding of instructions, follow-up care, medications, Prescriptions given X 2. 09:09 Patient left the ED. ic1 Addendum: 08/29/2021 07:12 Addendum: Culture Results: Positive urine culture. No further action required. Bacteria e b sensitive to prescribed antibiotic. Signatures: Dispatcher [employer] EDMS Alexander Hyman MD MD pkl Botello, Elizabeth eb Marsh, Wendy wm Ledbetter, Alexis al4 Villicano, Steven, RN RN sv1 Olga Lidia Man RN RN ic1 Eliz Corbett RN RN sf1
--- NOTE | 2021-08-26 07:56 | EDPHYS ---
Physician Documentation [facility] Name: Vanessa Young Age: 51 yrs Sex: Female : 1970 Arrival Date: 08/26/2021 Time: 04:59 Bed 15 Private MD: ED Physician Alexander Hyman HPI: 08/26 05:32 This 51 yrs old Female presents to ER via Ambulatory with complaints of Flank Pain - pkl Left. 05:32 The patient presents with abdominal pain in the left upper quadrant. Onset: The pkl symptoms/episode began/occurred yesterday. The symptoms radiate to left back. Associated signs and symptoms: none. The patient has been recently seen at an urgent care, yesterday, for similar complaints, was given a prescription for antibiotics. 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 - sv1 Historical: - Allergies: 05:05 Bactrim; al4 05:05 PENICILLINS; al4 - Home Meds: 05:20 escitalopram oxalate 20 mg Oral tab once daily [Active]; glyburide 2.5 mg Oral tab 1 sv1 tab once daily [Active]; gabapentin 600 mg Oral tab 1 tab 3 times per day for Neuropathic Pain [Active]; lisinopril 20 mg Oral tab 1 tab once daily [Active]; metformin 750 mg Oral Tb24 1 tab twice a day [Active]; ozempic [Active]; Tresiba FlexTouch U-200 200 unit/mL (3 mL) subcutaneous inpn [Active]; - PMHx: 05:05 Anxiety; Depression; Diabetes - IDDM; GERD; Hypertension; Pancreatitis; al4 - PSHx: 05:05 Cholecystectomy; al4 - Immunization history:: Adult Immunizations up to date, Client reports receiving the 2nd dose of the Covid vaccine, Flu vaccine is up to date. - Social history:: Smoking status: Patient denies any tobacco usage or history of. Patient/guardian denies using alcohol. ROS: 05:32 Eyes: Negative for injury, pain, redness, and discharge, ENT: Negative for injury, pkl pain, and discharge, Neck: Negative for injury, pain, and swelling, Cardiovascular: Negative for chest pain, palpitations, and edema, Respiratory: Negative for shortness of breath, cough, wheezing, and pleuritic chest pain. 05:32 Abdomen/GI: Positive for abdominal pain, of the left upper quadrant. 05:32 Back: Positive for pain at rest, of the left back. 05:32 : Negative for urinary symptoms. 05:32 MS/extremity: Negative for acute changes. 05:32 Skin: Negative for rash. 05:32 Neuro: Negative for altered mental status, loss of consciousness. Exam: 05:32 Head/Face: Normocephalic, atraumatic. Eyes: Pupils equal round and reactive to light, pkl extra-ocular motions intact. Lids and lashes normal. Conjunctiva and sclera are non-icteric and not injected. Cornea within normal limits. Periorbital areas with no swelling, redness, or edema. ENT: Nares patent. No nasal discharge, no septal abnormalities noted. Tympanic membranes are normal and external auditory canals are clear. Oropharynx with no redness, swelling, or masses, exudates, or evidence of obstruction, uvula midline. Mucous membranes moist. Neck: Trachea midline, no thyromegaly or masses palpated, and no cervical lymphadenopathy. Supple, full range of motion without nuchal rigidity, or vertebral point tenderness. No Meningismus. Chest/axilla: Normal chest wall appearance and motion. Nontender with no deformity. No lesions are appreciated. Cardiovascular: Regular rate and rhythm with a normal S1 and S2. No gallops, murmurs, or rubs. Normal PMI, no JVD. No pulse deficits. Respiratory: Lungs have equal breath sounds bilaterally, clear to auscultation and percussion. No rales, rhonchi or wheezes noted. No increased work of breathing, no retractions or nasal flaring. 05:32 Abdomen/GI: Bowel sounds: normal, Palpation: soft, mild abdominal tenderness, in the left upper quadrant. 05:32 Back: pain, that is mild, of the left mid back. 05:32 : Exam negative for acute changes. 05:32 Musculoskeletal/extremity: Exam is negative for acute changes. 05:32 Skin: Exam negative for rash. 05:32 Neuro: Orientation: is normal, Mentation: is normal, Cranial nerves: grossly normal, Cerebellar function: is grossly normal. Vital Signs: 05:03 BP 137 / 83; Pulse 72; Resp 18; Temp 97.8; Pulse Ox 96% ; Weight 81.65 kg; Height 5 ft. al4 4 in. (162.56 cm); Pain 10/10; 06:47 BP 120 / 77 LA Supine (auto/); Pulse 65 MON; Resp 16 S; Pulse Ox 98% on R/A; Pain 8/10; sv1 09:08 BP 141 / 80; Pulse 70; Resp 18; Pulse Ox 94% on R/A; ic1 05:03 Body Mass Index 30.90 (81.65 kg, 162.56 cm) al4 MDM: 05:00 Patient medically screened. pkl 07:52 Data reviewed: vital signs, nurses notes, lab test result(s), radiologic studies, CT pkl scan. ED course: Discussed lab and imaging studies with patient. Advised to follow up with PCP in 2 to 3 days. To return if necessary. Patient understood instructions. 08/26 05:09 Order name: Basic Metabolic Panel; Complete Time: 06:03 pkl 02 05:09 Order name: CBC with Diff; Complete Time: 06:03 pkl 08/26 05:09 Order name: Hepatic Function; Complete Time: 06:03 pkl 02 05:09 Order name: Lipase; Complete Time: 06:03 pkl 02/ 06:01 Order name: Urine Dipstick-Ancillary; Complete Time: 06:03 EDMS 0203 05:10 Order name: CT Abd/Pelvis - IV Contrast Only; Complete Time: 07:44 pkl 02 06:02 Order name: Urine Microscopic Only; Complete Time: 07:12 pkl 08/26 06:03 Order name: Urine Culture pkl 02 05:09 Order name: IV Saline Lock; Complete Time: 05:17 pkl 08/26 05:09 Order name: Labs collected and sent; Complete Time: 05:17 pkl 02 05:09 Order name: Urine Dipstick-Ancillary (obtain specimen); Complete Time: 06:06 pkl Administered Medications: 05:16 Drug: NS 0.9% 1000 ml Route: IV; Rate: 1000 ml; Site: right antecubital; sf1 05:16 Drug: morphine 4 mg Route: IVP; Site: right antecubital; sf1 05:51 Follow up: Response: No adverse reaction; Pain is decreased sv1 05:16 Drug: Zofran (Ondansetron) 4 mg Route: IVP; Site: right antecubital; sf1 05:51 Follow up: Response: Nausea is decreased sv1 07:14 Drug: morphine 4 mg Route: IVP; Site: right antecubital; ic1 09:09 Follow up: Response: No adverse reaction; Pain is decreased ic1 07:59 Drug: Cipro (ciprofloxacin) 400 mg Volume: 200 ml; Route: IVPB; Infused Over: 60 mins; ic1 Site: right antecubital; 09:08 Follow up: IV Status: Completed infusion; IV Intake: 200ml ic1 Disposition Summary: 08/26/21 07:56 Discharge Ordered Location: Home pkl Problem: new pkl Symptoms: have improved pkl Condition: Stable pkl Diagnosis - Left sided abdominal pain. Urinary tract infection. Right ovarian cyst pkl Followup: pkl - With: Private Physician - When: 2 - 3 days - Reason: Re-evaluation by your physician Discharge Instructions: - Discharge Summary Sheet pkl Forms: - Medication Reconciliation Form pkl - Thank You Letter pkl - Antibiotic Education pkl - Prescription Opioid Use pkl - Work release form jl7 Prescriptions: - Ultram 50 mg Oral Tablet - take 1 tablet by ORAL route every 8 hours As needed; 15 tablet; Refills: 0, pkl Product Selection Permitted - Cipro 500 mg Oral Tablet - take 1 tablet by ORAL route every 12 hours for 10 days; 20 tablet; Refills: 0, pkl Product Selection Permitted Signatures: Dispatcher [employer] EDMS Alexander Hyman MD MD pkl Hilton Díaz Steven, RN RN sv1 Olga Lidia Man RN RN ic1 Eliz Corbett RN RN sf1 Corrections: (The following items were deleted from the chart) 05:10 05:09 CREATININE, SERUM+C.LAB.BRZ ordered. EDMS EDMS
[2021-08-26 09:36] VITALS: TEMP 97.8
[2021-08-26 09:37] VITALS: BP 141/80; O2SAT 94
== END 2021-08-26 09:09 | disposition home or self-care (01) ==
LOC: ER 04:58
DX: N39.0 Urinary tract infection, site not specified (principal); N83.201 Unspecified ovarian cyst, right side; E11.9 Type 2 diabetes mellitus without complications; I10 Essential (primary) hypertension; F41.8 Other specified anxiety disorders; Z79.4 Long term (current) use of insulin; Z88.0 Allergy status to penicillin; Z88.1 Allergy status to other antibiotic agents
CPT/HCPCS: 96365; 87088; 85025; 87086; 80048; 36415; 80076; 87077; 87186; 83690; 74177; 96375; 99284; Q9967; J7030; J2405; J0744; 81003; 81015

== ENCOUNTER 2021-08-26 14:34 | Emergency (ER) | payer BC ==
--- OUTSIDE RECORDS SUMMARY | 2021-08-26 14:37 | XMS REPORT | Continuity of Care Document ---
:1970 Author Organization [facility] Address [address] [place] [address] Care Team Providers Name Role Phone Vonda_Duran Attending Clinician Unavailable Vonda_Duran Admitting Clinician Unavailable Payers Payer Name Policy Type Policy Number Effective Date Expiration Date [facility]/ [place] [id number] Problems Condition Condition Condition Status Onset Resolution [...] Start Date Stop Date Source Former Smoker [facility] Medications Ordered Filled Start [...] mcg/0.5 mL dose influenza, influenza, 2020-07-31 Completed [place] injectable, injectable, 00:00:00 Medical Gr[facility] p quadrivalent quadrivalent Vital Signs Vital Name Observation Time Observation Value Comments Source BP Diastolic 2020-11-17 00:00:00 81 mm[Hg] [facility] Height 2020-11-17 00:00:00 54 [in_i] [facility] BMI (Body Mass 2020-11-17 00:00:00 47.1 kg/m2 [facility] [employer] [facility]) [facility] BP Systolic 2020-11-17 00:00:00 130 mm[Hg] [facility] Body Weight 2020-11-17 00:00:00 3126 [oz_av] [facility] Procedures Procedure Date / Time Performed Performing Clinician Sourbaltazar e Tubal Ligation [facility] Cholecystectomy [facility] Encounters Start End Encounter Admission Attending Care Care Encounter Source Date/Time Date/Time Type Type Clinicians Facility Department ID 2020-11-17 2020-11-17 Outpatient Koudela_A [facility] [id number] [place] 09:59:00 09:59:00 [facility] 2020-11-17 2020-11-17 [place] [id number] [place] 09:59:00 09:59:00 0428 [facility] 2020-11-17 2020-11-17 [place] [id number] [place] 09:59:00 09:59:00 0429 [facility] 2020-11-17 2020-11-17 Joanie [facility] [place] - [id number] M at[place] 00:00:00 00:00:00 Discovery usman Ferrari PA-C: [address] [facility] [facility] [address], [facility] [address] , Ph. 2020-11-16 2020-11-16 Outpatient Sindy [facility] [id number] [facility] 12:48:00 [facility]26 [facility] Results This patient has no known results.
--- NOTE | 2021-08-26 14:45 | EDPHYS ---
Physician Documentation [facility] Name: Vanessa Young Age: 51 yrs Sex: Female : 1970 Arrival Date: 08/26/2021 Time: 14:35 Bed Waiting Private MD: ED Physician Nguyễn Cortes HPI: 08/26 14:48 This 51 yrs old Female presents to ER via Unassigned with complaints of Abdominal Pain. kb 14:48 The patient presents with abdominal pain in the left upper quadrant. Onset: The kb symptoms/episode began/occurred yesterday. The symptoms do not radiate. Associated signs and symptoms: none. The symptoms are described as constant. Modifying factors: The symptoms are alleviated by nothing, the symptoms are aggravated by pressure. Severity of pain: At its worst the pain was moderate in the emergency department the pain is unchanged. The patient has not experienced similar symptoms in the past. The patient has been recently seen at the [facility] Emergency Department, today. Pt reports LUQ pain that started yesterday. States she was seen at [place], then here. Had blood work and CT scans at both places. Came back because she is still having the pain. ROS: 14:47 Constitutional: Negative for fever, chills, and weight loss. kb 14:47 Abdomen/GI: Positive for abdominal pain, Negative for nausea, vomiting, and diarrhea. 14:47 All other systems are negative. Exam: 14:47 Constitutional: This is a well developed, well nourished patient who is awake, alert, kb and in no acute distress. Head/Face: Normocephalic, atraumatic. ENT: Moist Mucous membranes Respiratory: Respirations even and unlabored. No increased work of breathing. Talking in full sentences Skin: Warm, dry with normal turgor. Normal color. MS/ Extremity: Pulses equal, no cyanosis. Neurovascular intact. Full, normal range of motion. Neuro: Awake and alert, GCS 15, oriented to person, place, time, and situation. Moves all extremities. Normal gait. Psych: Awake, alert, with orientation to person, place and time. Behavior, mood, and affect are within normal limits. 14:47 Abdomen/GI: Inspection: abdomen appears normal, Palpation: soft, in all quadrants, mild abdominal tenderness, in the left upper quadrant. MDM: 14:44 Patient medically screened. kb 14:47 Data reviewed: vital signs, nurses notes. Data reviewed: old medical records, Labs and kb CT reviewed from this mornings visit. Data interpreted: Pulse oximetry: on room air Interpretation: normal. 14:51 ED course: Pt educated on lab and CT findings from this morning. Educated to follow up kb with GI for further evaluation. Pt was prescribed antibiotics for UTI and ultram for pain this morning. Educated to continue those medications . Administered Medications: No medications were administered Disposition: 14:45 Upper abdominal pain. kb 17:59 Co-signature as Attending Physician, Nguyễn Cortes MD I agree with the assessment and kdr plan of care. Disposition Summary: 08/26/21 14:44 Discharge Ordered Location: Home kb Condition: Stable kb Diagnosis - Encounter for screening, unspecified kb Followup: kb - With: Emergency Department - When: As needed - Reason: Worsening of condition Followup: kb - With: Private Physician - When: 2 - 3 days - Reason: Recheck today's complaints, Continuance of care, Re-evaluation by your physician Forms: - Medication Reconciliation Form kb - Thank You Letter kb - Antibiotic Education kb - Prescription Opioid Use kb Signatures: Elizabeth Basilio, SUSANNAH-C SUSANNAH-Nguyễn Tovar MD MD kdr Corrections: (The following items were deleted from the chart) 14:45 14:44 Upper abdominal pain, unspecified kb kb
--- NOTE | 2021-08-26 14:45 | ER ---
Nurse's Notes [facility] Name: Vanessa Young Age: 51 yrs Sex: Female : 1970 Arrival Date: 08/26/2021 Time: 14:35 Bed Waiting Private MD: Diagnosis: Encounter for screening, unspecified Assessment: 08/26 14:44 Reassessment: pt left ED before vitals could be taken in triage. vg1 ED Course: 14:35 Patient arrived in ED. rg4 14:44 Elizabeth Basilio FNP-C is [facility]. kb 14:44 Nguyễn Cortes MD is Attending Physician. kb Administered Medications: No medications were administered Outcome: 14:44 Discharge ordered by . kb 14:46 Patient left the ED. vg1 Signatures: Elizabeth Basilio FNP-C FNP-Ckb Garcia, Rubi rg4 Viviane Espana, RN RN vg1
== END 2021-08-26 14:46 | disposition home or self-care (01) ==
LOC: ER 14:34
DX: R10.12 Left upper quadrant pain (principal)

== ENCOUNTER 2021-08-26 17:22 | Observation (INO) | payer BC ==
--- OUTSIDE RECORDS SUMMARY | 2021-08-26 17:27 | XMS REPORT | Continuity of Care Document ---
:1970 Author Organization [facility] Address [address] [place] [address] Care Team Providers Name Role Phone Vonda_Duran Attending Clinician Unavailable Vonda_Duran Admitting Clinician Unavailable Payers Payer Name Policy Type Policy Number Effective Date Expiration Date [facility]/ [place] [id number] Problems Condition Condition Condition Status Onset Resolution [...] Start Date Stop Date Source Former Smoker [facility] Medications Ordered Filled Start [...] mcg/0.5 mL dose influenza, influenza, 2020-07-31 Completed [facility] injectable, injectable, 00:00:00 [facility] p quadrivalent quadrivalent Vital Signs Vital Name Observation Time Observation Value Comments Source BP Diastolic 2020-11-17 00:00:00 81 mm[Hg] [facility] Height 2020-11-17 00:00:00 54 [in_i] [facility] BMI (Body Mass 2020-11-17 00:00:00 47.1 kg/m2 [facility] BP Systolic 2020-11-17 00:00:00 130 mm[Hg] [facility] Body Weight 2020-11-17 00:00:00 3126 [oz_av] [facility] Procedures Procedure Date / Time Performed Performing Clinician Sourbaltazar e Tubal Ligation [facility] Cholecystectomy [facility] Encounters Start End Encounter Admission Attending Care Care Encounter Source Date/Time Date/Time Type Type Clinicians Facility Department ID 2020-11-17 2020-11-17 Outpatient Koudela_A [facility] [id number] [place] 09:59:00 09:59:00 [facility] 2020-11-17 2020-11-17 [place] [id number] [place] 09:59:00 09:59:00 [facility] 2020-11-17 2020-11-17 [place] [id number] [place] 09:59:00 09:59:00 [facility] 2020-11-17 2020-11-17 Joanie [facility] [place] - [id number] [place] 00:00:00 00:00:00 [facility] usman Ferrari PA-C: [address] [facility] [address], [facility] [id number] , Ph. 2020-11-16 2020-11-16 Outpatient Sindy [facility] [id number] -[id number] [facility] 12:48:00 12:48:00 0426 [facility] Results This patient has no known results.
--- NOTE | 2021-08-26 17:57 | EDPHYS ---
Physician Documentation [facility] Name: Vanessa Young Age: 51 yrs Sex: Female : 1970 Arrival Date: 08/26/2021 Time: 17:28 Bed 16 Private MD: ED Physician Nguyễn Cortes HPI: 08/26 17:32 This 51 yrs old Female presents to ER via Unassigned with complaints of Urinary Problem.kb 17:32 The patient presents with abdominal pain in the upper abdomen. Onset: The kb symptoms/episode began/occurred yesterday. The symptoms do not radiate. Associated signs and symptoms: Pertinent positives: nausea, vomiting. The symptoms are described as constant. Modifying factors: The symptoms are alleviated by nothing, the symptoms are aggravated by nothing. Severity of pain: At its worst the pain was moderate in the emergency department the pain is unchanged. The patient has not experienced similar symptoms in the past. The patient has been recently seen by a physician: The patient has been recently seen at the [facility] Emergency Department. Pt reports LUQ pain started yesterday. Was seen at [facility] and here with CT scans and labs completed. Came back here for continued pain, seen by me at that time and was told to follow up with GI. Pt called Dr Siegel and he informed her to come back for admission so he could do an endoscopy tomorrow. Dr Siegel called with plan of care prior to pt's arrival.. 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 08/19/2021 vg1 Historical: - Allergies: 17:37 Bactrim; vg1 17:37 PENICILLINS; vg1 - Home Meds: 17:37 escitalopram oxalate 20 mg Oral tab once daily [Active]; gabapentin 600 mg Oral tab 1 vg1 tab 3 times per day for Neuropathic Pain [Active]; glyburide 2.5 mg Oral tab 1 tab once daily [Active]; lisinopril 20 mg Oral tab 1 tab once daily [Active]; metformin 750 mg Oral Tb24 1 tab twice a day [Active]; ozempic [Active]; Tresiba FlexTouch U-200 200 unit/mL (3 mL) subcutaneous inpn [Active]; - PMHx: 17:37 Anxiety; Depression; Diabetes - IDDM; GERD; Hypertension; Pancreatitis; vg1 - PSHx: 17:37 Cholecystectomy; vg1 - Immunization history:: Client reports receiving the 2nd dose of the Covid vaccine. - Social history:: Smoking status: Patient denies any tobacco usage or history of. ROS: 17:34 Constitutional: Negative for fever, chills, and weight loss. kb 17:34 Abdomen/GI: Positive for abdominal pain, Negative for nausea, vomiting, and diarrhea. 17:34 All other systems are negative. Exam: 17:34 Constitutional: This is a well developed, well nourished patient who is awake, alert, kb and in no acute distress. Head/Face: Normocephalic, atraumatic. ENT: Moist Mucous membranes Cardiovascular: Regular rate and rhythm with a normal S1 and S2. No gallops, murmurs, or rubs. No pulse deficits. Respiratory: Respirations even and unlabored. No increased work of breathing. Talking in full sentences Skin: Warm, dry with normal turgor. Normal color. MS/ Extremity: Pulses equal, no cyanosis. Neurovascular intact. Full, normal range of motion. Neuro: Awake and alert, GCS 15, oriented to person, place, time, and situation. Moves all extremities. Normal gait. Psych: Awake, alert, with orientation to person, place and time. Behavior, mood, and affect are within normal limits. 17:34 Abdomen/GI: Inspection: abdomen appears normal, Bowel sounds: normal, Palpation: soft, in all quadrants, moderate abdominal tenderness, in the left upper quadrant. Vital Signs: 17:36 BP 129 / 104; Pulse 70; Resp 17; Temp 97.0; Pulse Ox 98% ; Weight 81.65 kg; Height 5 vg1 ft. 4 in. (162.56 cm); Pain 10/10; 18:25 BP 121 / 73; Pulse 61; Resp 16; Pulse Ox 100% on R/A; ic1 19:00 BP 122 / 79; Pulse 72; Resp 16; Pulse Ox 97% on R/A; ll3 17:36 Body Mass Index 30.90 (81.65 kg, 162.56 cm) vg1 MDM: 17:28 Patient medically screened. kb 17:32 Data reviewed: vital signs, nurses notes. Data interpreted: Pulse oximetry: on room air kb is 100 %. Interpretation: normal. Counseling: I had a detailed discussion with the patient and/or guardian regarding: the historical points, exam findings, and any diagnostic results supporting the discharge/admit diagnosis, the need for further work-up and treatment in the hospital. 17:55 Physician consultation: Ramon DARLING was contacted at 17:56, regarding admission, kb to the medical/surgical unit. patient's condition, and will see patient in ED. 08/26 17:31 Order name: COVID-19 SARS RT PCR (Document "Date of Onset" if Symptomatic) kb 08/26 19:00 Order name: Glucose, Ancillary Testing [facility] 08/26 17:31 Order name: Diet Bariatric Clear Liquid; Complete Time: 17:32 kj1 08/26 17:31 Order name: IV Start; Complete Time: 17:56 kb 08/26 18:37 Order name: Blood Glucose Level; Complete Time: 19:13 la1 Administered Medications: 18:07 Drug: ProTONIX (pantoprazole) 40 mg Route: IVP; Site: left antecubital; ab2 18:07 Dru mg of (Cipro (ciprofloxacin) 400 mg, D5W 200 ml) Volume: 200 ml; Route: IVPB; ab2 Infused Over: 60 mins; Site: left antecubital; 18:44 Drug: Zofran (Ondansetron) 4 mg Route: IVP; Site: left antecubital; ab2 18:59 Follow up: Response: No adverse reaction; Marked relief of symptoms ic1 18:45 Drug: morphine 4 mg Route: IVP; Site: left antecubital; ab2 18:59 Follow up: Response: No adverse reaction; Pain is decreased ic1 Disposition: 08/27 07:28 Co-signature as Attending Physician, Nguyễn Cortes MD I agree with the assessment and kdr plan of care. Disposition Summary: 08/26/21 17:56 Hospitalization Ordered Hospitalization Status: Observation kb Provider: Davidson Damian Location: Telemetry/MedSurg (observation) kb Condition: Stable kb Problem: new kb Symptoms: are unchanged kb Bed/Room Type: Standard Room Assignment: 208(08/26/21 20:02) cg Diagnosis - UTI/ Urinary tract infection, site not specified kb - Upper abdominal pain, unspecified kb Forms: - Medication Reconciliation Form kb - SBAR form kb Signatures: Dispatcher [employer] EDElizabeth Grimaldo FNP-C BAGGAGE CHECKER-Ckb Nguyễn Cortes MD MD kdr Attema, Lee, BAGGAGE CHECKER-C BAGGAGE CHECKER-Cla1 Katie Espana, RN RN cg Viviane Espana RN RN vg1 Hilton Ngo2 Olga Lidia Man RN ic1 Corrections: (The following items were deleted from the chart) 08/26 17:37 17:37 Social history: Smoking status: Patient denies any tobacco usage or history of. vg1 vg1 19:59 17:56 kb cg 20:02 19:59 230 cg cg
--- NOTE | 2021-08-26 17:57 | ER ---
Nurse's Notes [facility] Name: Vanessa Young Age: 51 yrs Sex: Female : 1970 Arrival Date: 08/26/2021 Time: 17:28 Bed 16 Private MD: Diagnosis: UTI/ Urinary tract infection, site not specified;Upper abdominal pain, unspecified Presentation: 08/26 17:36 Chief complaint: Patient states: LUQ pain that wraps around to mid back. Coronavirus vg1 screen: Vaccine status: Patient reports receiving the 2nd dose of the covid vaccine. Ebola Screen: Patient negative for fever greater than or equal to 101.5 degrees Fahrenheit, and additional compatible Ebola Virus Disease symptoms. Initial Sepsis Screen: Does the patient meet any 2 criteria? No. Patient's initial sepsis screen is negative. Does the patient have a suspected source of infection? No. Patient's initial sepsis screen is negative. Risk Assessment: Do you want to hurt yourself or someone else? Patient reports no desire to harm self or others. Onset of symptoms was August 26, 2021. 17:36 Method Of Arrival: Ambulatory 1 17:36 Acuity: [place] 3 vg1 Triage Assessment: 17:37 General: Appears uncomfortable, Behavior is cooperative. Pain: Complains of pain in vg1 left upper quadrant. 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 08/19/2021 vg1 Historical: - Allergies: 17:37 Bactrim; vg1 17:37 PENICILLINS; vg1 - Home Meds: 17:37 escitalopram oxalate 20 mg Oral tab once daily [Active]; gabapentin 600 mg Oral tab 1 vg1 tab 3 times per day for Neuropathic Pain [Active]; glyburide 2.5 mg Oral tab 1 tab once daily [Active]; lisinopril 20 mg Oral tab 1 tab once daily [Active]; metformin 750 mg Oral Tb24 1 tab twice a day [Active]; ozempic [Active]; Tresiba FlexTouch U-200 200 unit/mL (3 mL) subcutaneous inpn [Active]; - PMHx: 17:37 Anxiety; Depression; Diabetes - IDDM; GERD; Hypertension; Pancreatitis; vg1 - PSHx: 17:37 Cholecystectomy; vg1 - Immunization history:: Client reports receiving the 2nd dose of the Covid vaccine. - Social history:: Smoking status: Patient denies any tobacco usage or history of. Screenin:25 Abuse screen: Denies threats or abuse. Denies injuries from another. Abuse screen: ic1 Denies threats or abuse. Denies injuries from another. 18:25 Fall Risk None identified. ic1 19:28 Nutritional screening: No deficits noted. Tuberculosis screening: No symptoms or risk ll3 factors identified. Assessment: 17:39 Reassessment: Pt seen at prior visit. No change nor distress noted. Pt returned for ab2 ongoing pain that she states isn't going away with meds received at discharge. Pt states she spoke with her gastro md and was told to come in for a scope on tomorrow. Pt placed in treatment room. IV initiated. Placed on cont monitoring. GI: Reports lower abdominal pain, upper abdominal pain, nausea. 18:26 Reassessment: Patient appears in no apparent distress at this time. No changes from ab2 previously documented assessment. 19:00 Reassessment: Patient appears in no apparent distress at this time. No changes from ll3 previously documented assessment. Patient and/or family updated on plan of care and expected duration. Pain level reassessed. Patient is alert, oriented x 3, equal unlabored respirations, skin warm/dry/pink. Vital Signs: 17:36 BP 129 / 104; Pulse 70; Resp 17; Temp 97.0; Pulse Ox 98% ; Weight 81.65 kg; Height 5 vg1 ft. 4 in. (162.56 cm); Pain 10/10; 18:25 BP 121 / 73; Pulse 61; Resp 16; Pulse Ox 100% on R/A; ic1 19:00 BP 122 / 79; Pulse 72; Resp 16; Pulse Ox 97% on R/A; ll3 17:36 Body Mass Index 30.90 (81.65 kg, 162.56 cm) vg1 ED Course: 17:28 Patient arrived in ED. mr 17:28 [facility]-C [facility] kb 17:28 Nguyễn Cortes MD is Attending Physician. kb 17:30 Hilton Ngo is Primary Nurse. ab2 17:37 Triage completed. vg1 17:37 Arm band placed on. vg1 17:39 Inserted saline lock: 20 gauge in left antecubital area, using aseptic technique. ab2 17:56 Davidson Damian MD is Hospitalizing Provider. kb 18:25 Patient has correct armband on for positive identification. Bed in low position. Call ic1 light in reach. Side rails up X2. Pulse ox on. NIBP on. Door closed. Noise minimized. Warm blanket given. 19:29 Door closed. Noise minimized. Warm blanket given. ll3 Administered Medications: 18:07 Drug: ProTONIX (pantoprazole) 40 mg Route: IVP; Site: left antecubital; ab2 18:07 Dru mg of (Cipro (ciprofloxacin) 400 mg, D5W 200 ml) Volume: 200 ml; Route: IVPB; ab2 Infused Over: 60 mins; Site: left antecubital; 18:44 Drug: Zofran (Ondansetron) 4 mg Route: IVP; Site: left antecubital; ab2 18:59 Follow up: Response: No adverse reaction; Marked relief of symptoms ic1 18:45 Drug: morphine 4 mg Route: IVP; Site: left antecubital; ab2 18:59 Follow up: Response: No adverse reaction; Pain is decreased ic1 Outcome: 17:56 Decision to Hospitalize by Provider. kb 21:08 Patient left the ED. ds4 Signatures: Elizabeth Basilio, LISSET PERINATAL SPECIALIST-Giovani ValderramaaNathaly Allan Chou ds4 Viviane Espana, RN RN vg1 Josi Yanez RN RN ll3 Olga Lidia Man RN RN ic1 Hilton Ngo ab2 Corrections: (The following items were deleted from the chart) 17:37 17:37 Social history: Smoking status: Patient denies any tobacco usage or history of. vg1 vg1 18:59 18:25 BP 121 / 73; Pulse 61bpm; Resp 16bpm; Pulse Ox 100% RA; ab2 ic1 19:00 17:39 Abuse screen: Denies threats or abuse. Denies injuries from another. ab2 ic1 19:00 17:39 Nutritional screening: No deficits noted. ab2 ic1 19:00 17:39 Tuberculosis screening: No symptoms or risk factors identified. ab2 ic1 19:00 17:39 Fall Risk None identified. ab2 ic1 19:00 17:39 Abuse screen: Denies threats or abuse. Denies injuries from another. ic1 ic1 : 17:39 Patient has correct armband on for positive identification. Bed in low position. ic1 Call light in reach. Side rails up X2. ab2 : 18:26 Door closed. Lights dimmed. Warm blanket given. ab2 ic1
[2021-08-26] MEDS ORDERED: PANTOPRAZOLE 40 MG INJ ONE (18:03)
[2021-08-26] MEDS ORDERED: CIPROFLOXACIN 400mg IV 400 MG/200 ML BAG IV ONE (18:03)
[2021-08-26] MEDS ORDERED: ONDANSETRON 4 MG/2 ML VIAL ONE (18:42)
[2021-08-26] MEDS ORDERED: MORPHINE 4 MG/ML SYR ONE (18:42)
--- NOTE | 2021-08-26 19:47 | P.HP ---
Certification for Inpatient Patient admitted to: Observation With expected LOS: <2 Midnights Patient will require the following post-hospital care: None Practitioner: I am a practitioner with admitting privileges, knowledge of patient current condition, hospital course, and medical plan of care. Services: Services provided to patient in accordance with Admission requirements found in Title 42 Section 412.3 of the Code of Federal Regulations Patient History Date of Service: 08/26/21 Reason for admission: Intractable abdominal pain History of Present Illness: 51-year-old female with history of diabetes mellitus type [id number]-[id number]-smokzamdg, GERD, hypertension and previous bouts of pancreatitis after cholecystectomy presents the emergency department for epigastric/left upper quadrant pain. Patient was seen at [place] emergency department had a CT scan which was negative for acute findings but was diagnosed with urinary tract infection, came back to the emergency department here this morning had another CT scan which was negative for any acute findings as well as urinalysis which again demonstrate urinary tract infection. Patient went home still having significant pain. Called her GI doctor who recommended that she be admitted here under observation to have endoscopy performed tomorrow. Patient had labs done earlier today which showed a completely normal CBC, BMP significant for glucose 141 chloride 108 GFR 87. Admit for further evaluation and management of epigastric/left upper quadrant pain. Allergies Penicillins Allergy (Intermediate, Verified 09/23/20 18:02) Hives/Rash morphine Allergy (Verified 09/23/20 18:02) Nausea/Vomiting sulfamethoxazole [From Bactrim] Allergy (Verified 09/23/20 18:02) Hives/Rash trimethoprim [From Bactrim] Allergy (Verified 09/23/20 18:02) Hives/Rash Home Medications: Escitalopram [Lexapro*] 1 tab PO DAILY 09/23/20 Gabapentin 1 tab PO Q8H 09/23/20 Metformin HCl [Glucophage] 750 mg PO BID 09/23/20 Omeprazole [Prilosec] 40 mg PO DAILY 09/23/20 glyBURIDE [Glyburide] 2.5 mg PO DAILY 09/23/20 lisinopriL [Lisinopril] 5 mg PO DAILY 09/23/20 Aspirin [Aspirin EC 81 MG] 81 mg PO DAILY 30 Days #30 tablet. 09/24/20 Atorvastatin Calcium [Lipitor] 40 mg PO BEDTIME 30 Days #30 tablet 09/24/20 Folic Acid 2 mg PO DAILY 30 Days #60 tablet 09/24/20 levoFLOXacin [Levaquin] 750 mg PO DAILY 7 Days #7 tab 09/24/20 - Past Medical/Surgical History Diabetic: Yes -: DM- II, vtr-[id number]-ododblxyr -: Pancreatitis -: GERD -: Depression/anxiety -: Insomnia -: Drug Abuse -: topher -: back surgery, fusion Psychosocial/ Personal History: Patient lives at home with family - Family History Father -: Hypertension - Social History Smoking Status: Never smoker Alcohol use: No CD- Drugs: No Caffeine use: No Place of Residence: Home Review of Systems 10-point ROS is otherwise unremarkable Gastrointestinal: Nausea, Abdominal Pain Physical Examination - Physical Exam General: Alert, In no apparent distress, Oriented x3 HEENT: Atraumatic, PERRLA, Mucous membr. moist/pink, EOMI, Sclerae nonicteric Neck: Supple, 2+ carotid pulse no bruit, No LAD, Without JVD or thyroid abnormality Respiratory: Clear to auscultation bilaterally, Normal air movement Cardiovascular: Regular rate/rhythm, Normal S1 S2 Capillary refill: <2 Seconds Gastrointestinal: Normal bowel sounds, Tenderness (Mild epigastric/left upper qu adrant abdominal pain) Musculoskeletal: No tenderness Integumentary: No rashes Neurological: Normal speech, Normal strength at 5/5 x4 extr, Normal tone, Normal affect Assessment and Plan - Plan Assessment: Intractable epigastric pain UTI Diabetes mellitus type [id number]-bmogocu-bjrprzruw Hypertension Plan: Intractable epigastric pain: Patient had 2 [address] scans in the past 48 hours which were both negative for acute findings. GI has been consulted anticipate endoscopy in the morning. Patient does have history of pancreatitis after having her gallbladder removed, will obtain lipase level in the morning. Patient had on this morning that was normal. Patient does have urinary tract infection although there is no CVA tenderness patient does report that the pain radiates around her back, could also possibly be related to early pyelonephritis although this was not evident on CT scan and white blood cell count was normal. UTI: Continue Rocephin Diabetes mellitus type 0gxf-hctvaud-zdeatsjgl: ACH S Accu-Chek, sliding scale insulin Hypertension: Obtain and continue home medications. DVT PPX: Lovenox Code status: Full Discharge Plan: Home Plan to discharge in: 24 Hours - Advance Directives Does patient have a Living Will: No Does patient have a Durable POA for Healthcare: No - Code Status/Comfort Care Code Status Assessed: Yes (Full code) Critical Care: No Time Spent Managing Pts Care (In Minutes): 55
[2021-08-26] MEDS ORDERED: NA CHLORIDE 0.9% 1,000 ML IV SCH (20:54)
[2021-08-26] MEDS ORDERED: MORPHINE 2 MG/ML SYR IV PRN (20:54)
[2021-08-26] MEDS ORDERED: SODIUM CHLORIDE 0.9% 10ML INJ IV PRN (20:54)
[2021-08-26] MEDS ORDERED: ONDANSETRON 4 MG/2 ML VIAL IV PRN (20:54)
[2021-08-26] MEDS ORDERED: INSULIN -REGULAR HUMAN 50 UNIT/0.5 ML ML SQ SCH (21:00)
[2021-08-26] MEDS ORDERED: CEFTRIAXONE 1,000 MG in NA CHLORIDE 0.9% 50 ML IVPB SCH (21:00)
[2021-08-26 21:08] VITALS: BMI 30.9
[2021-08-26] MEDS ORDERED: FENTANYL CITR 100 MCG/2 ML IV ONE (21:11)
[2021-08-26] MEDS ORDERED: FENTANYL CITR 100 MCG/2 ML IV PRN (21:20)
[2021-08-26 21:32] VITALS: O2SAT 97
[2021-08-27 00:12] VITALS: TEMP 97.1
[2021-08-27 02:55] VITALS: BP 116/75
--- NOTE | 2021-08-27 04:53 | P.DS ---
Admission Date: 08/26/21 Discharge Date: 08/27/21 Disposition: AMA-LEFT AGAINST MEDICAL ADVIC Discharge Condition: FAIR Reason for Admission: Intractable abdominal pain Brief History of Present Illness: 51-year-old female with history of diabetes mellitus type [id number]-kocqllv-gniiupftz, GERD, hypertension and previous bouts of pancreatitis after cholecystectomy presents the emergency department for epigastric/left upper quadrant pain. Patient was seen at [place] emergency department had a CT scan which was negative for acute findings but was diagnosed with urinary tract infection, came back to the emergency department here this morning had another CT scan which was negative for any acute findings as well as urinalysis which again demonstrate urinary tract infection. Patient went home still having significant pain. Called her GI doctor who recommended that she be admitted here under observation to have endoscopy performed tomorrow. Patient had labs done earlier today which showed a completely normal CBC, BMP significant for glucose 141 chloride 108 GFR 87. Admit for further evaluation and management of epigastric/left upper quadrant pain. Hospital Course: Patient was admitted after calling her GI doctor who is planning on performing endoscopy in the morning, patient reports that she rather wait at home and have appointment on Monday. Patient left AGAINST MEDICAL ADVICE. Vital Signs/Physical Exam: Temp Pulse Resp BP Pulse Ox 97.1 F 68 18 116/75 95 08/27/21 00:00 08/27/21 02:15 08/27/21 02:42 08/27/21 02:15 08/27/21 02:12 General: Alert, In no apparent distress, Oriented x3 HEENT: Atraumatic, PERRLA, EOMI Neck: Supple, JVD not distended Respiratory: Clear to auscultation bilaterally, Normal air movement Cardiovascular: Regular rate/rhythm, Normal S1 S2 Gastrointestinal: Normal bowel sounds, Tenderness (Mild generalized abdominal tenderness) Musculoskeletal: No tenderness Integumentary: No rashes Neurological: Normal speech, Normal tone, Normal affect Lymphatics: No axilla or inguinal lymphadenopathy Home Medications: Escitalopram [Lexapro*] 1 tab PO DAILY 09/23/20 Gabapentin 1 tab PO BID 09/23/20 Metformin HCl [Glucophage] 750 mg PO DAILY 09/23/20 glyBURIDE [Glyburide] 2.5 mg PO DAILY 09/23/20 lisinopriL [Lisinopril] 5 mg PO DAILY 09/23/20 Insulin Degludec [Tresiba Flextouch U-100] 40 units SQ DAILY 08/26/21 Semaglutide [Ozempic] 0.5 mg SQ EVERY 7TH DAY 08/26/21 Physician Discharge Instructions: Please continue with plan of care with your GI doctor Dr. Granados Followup: Vin Ryan MD [Primary Care Provider] - Time spent managing pt's care (in minutes): 15
[2021-08-27] MEDS ORDERED: INSULIN -REGULAR HUMAN 50 UNIT/0.5 ML ML SQ SCH (06:00)
[2021-08-27] MEDS ORDERED: PANTOPRAZOLE 40 MG INJ IVP SCH (07:30)
[2021-08-27] MEDS ORDERED: ENOXAPARIN 40 MG/0.4 ML SQ SCH (09:00)
[2021-08-27] MEDS ORDERED: CEFTRIAXONE 1,000 MG in NA CHLORIDE 0.9% 50 ML IVPB SCH (09:00)
== END 2021-08-27 04:15 | disposition left against medical advice (07) ==
LOC: ER 17:22 → ERHOLD 19:09 → 2ND 20:36
PROVIDERS: ADMIT Hospitalist; ATTEND Hospitalist
DX: R10.13 Epigastric pain (principal); Z53.29 Procedure and treatment not carried out because of patient's decision for other reasons; N39.0 Urinary tract infection, site not specified; E11.9 Type 2 diabetes mellitus without complications; I10 Essential (primary) hypertension; K21.9 Gastro-esophageal reflux disease without esophagitis; F41.9 Anxiety disorder, unspecified; F32.A Depression, unspecified; G47.00 Insomnia, unspecified; F19.11 Other psychoactive substance abuse, in remission; Z90.49 Acquired absence of other specified parts of digestive tract; Z20.822 Contact with and (suspected) exposure to COVID-19; Z79.4 Long term (current) use of insulin; Z88.0 Allergy status to penicillin; Z88.3 Allergy status to other anti-infective agents; Z88.6 Allergy status to analgesic agent; Z79.82 Long term (current) use of aspirin; Z82.49 Family history of ischemic heart disease and other diseases of the circulatory system
CPT/HCPCS: 82947 ×2; 96375; 96374; 99283; U0003; C9113; J3010 ×2; J7030; J2405; J0744; G0378 ×3

== ENCOUNTER 2021-08-29 18:54 | Emergency (ER) | payer BC ==
--- OUTSIDE RECORDS SUMMARY | 2021-08-29 18:57 | XMS REPORT | Continuity of Care Document ---
:1970 Author Organization [facility] Address [address] [place] [address] Care Team Providers Name Role Phone Vonda_Duran Attending Clinician Unavailable Vonda_A Admitting Clinician Unavailable Payers Payer Name Policy Type Policy Number Effective Date Expiration Date [facility]/ [place] [id number] Problems Condition Condition Condition Status Onset Resolution [...] Start Date Stop Date Source Former Smoker [facility] Medications Ordered Filled Start [...] mcg/0.5 mL dose influenza, influenza, 2020-07-31 Completed [facility] injectable, injectable, 00:00:00 Medical Grou p quadrivalent quadrivalent Vital Signs Vital Name Observation Time Observation Value Comments Source BP Diastolic 2020-11-17 00:00:00 81 mm[Hg] [facility] Height 2020-11-17 00:00:00 54 [in_i] [facility] BMI (Body Mass 2020-11-17 00:00:00 47.1 kg/m2 [facility] [employer] [facility] BP Systolic 2020-11-17 00:00:00 130 mm[Hg] [facility] Body Weight 2020-11-17 00:00:00 3126 [oz_av] [facility] Procedures Procedure Date / Time Performed Performing Clinician Sourc e Tubal Ligation [facility] Cholecystectomy [facility] Encounters Start End Encounter Admission Attending Care Care Encounter Source Date/Time Date/Time Type Type Clinicians Facility Department ID 2020-11-17 2020-11-17 Outpatient Koudela_A [facility] [id number] [place] 09:59:00 09:59:00 [facility]27 [facility] 2020-11-17 2020-11-17 Outpatient Koudela_A [facility] [id number] [place] 09:59:00 09:59:00 0428 [facility] 2020-11-17 2020-11-17 [place] [id number] [place] 09:59:00 09:59:00 0429 [facility] 2020-11-17 2020-11-17 Joanie [facility] [place] - [id number] M at[place]or 00:00:00 00:00:00 [facility] usman Ferrari PA-C: [address] [facility] [address], [place] [address] , Ph. 2020-11-16 2020-11-16 Outpatient Sindy [facility] [id number] [place] 12:48:00 12:48:00 0426 [facility] Results This patient has no known results.
[2021-08-29] MEDS ORDERED: ACETAMINOPHEN 160 MG/5 ML UCUP ONE (20:19)
[2021-08-29] MEDS ORDERED: ONDANSETRON 4 MG/2 ML VIAL ONE (20:40)
[2021-08-29] MEDS ORDERED: NA CHLORIDE 0.9% 1,000 ML ONE (20:40)
[2021-08-29] MEDS ORDERED: MORPHINE 4 MG/ML SYR ONE (20:40)
[2021-08-29] MEDS ORDERED: FAMOTIDINE 20 MG/2 ML VIAL IV ONE (20:41)
[2021-08-29 21:04] LABS: Urine Blood 2+ (Negative); Urine Glucose Negative (Negative); Urine Protein Negative (Negative); Urine Specific Gravity >=1.030 (1.005-1.030)
[2021-08-29 21:15] LABS: Absolute Lymphocytes (CBC) 2.5 K/uL (0.7-4.9); Hematocrit 36.9 % (36.0-45.0); Lymphocytes % 34.6 % (15.3-44.8); MPV 8.4 fL (7.6-11.3); RBC Red Blood Cell Count 4.24 M/uL (3.86-4.86)
[2021-08-29 21:39] LABS: Albumin 3.3 g/dL (3.4-5.0); Bilirubin Direct 0.1 mg/dL (0-0.2); Bilirubin Total 0.4 mg/dL (0.2-1.0); Potassium 3.8 mmol/L (3.5-5.1); Protein, Total 7.2 g/dL (6.4-8.2)
--- NOTE | 2021-08-29 21:56 | RAD REPORT ---
EXAM DESCRIPTION: CTAbdomen Pelvis W Contrast - 08/29/2021 9:42 pm CLINICAL HISTORY: Abdominal pain. Abd pain;Flank pain COMPARISON: Abdomen Pelvis W Contrast dated 08/26/2021 TECHNIQUE: Biphasic CT imaging of the abdomen and pelvis was performed with 100 ml non-ionic IV cont rast. All CT scans are performed using dose optimization technique as appropriate and may include automated exposure control or mA/KV adjustment according to patient size. FINDINGS: The lung bases are clear. The liver, spleen, pancreas, adrenal glands and kidneys are within normal limits. Calcifications lara g the right capsule of the liver noted. Cholecystectomy clips. No bowel obstruction, free air, free fluid or abscess. Moderate stool is seen throughout the colon. T he appendix is normal. No evidence of significant lymphadenopathy. Postsurgical hardware is present at the lumbosacral spine. IMPRESSION: No acute intra-abdominal or pelvic finding. Moderate stool is noted throughout the colon.
[2021-08-29] MEDS ORDERED: KETOROLAC 30 MG/ML INJ ONE (22:21)
[2021-08-29 23:12] LABS: Urine Bacteria <20 /HPF (<20)
--- NOTE | 2021-08-29 23:20 | EDPHYS ---
Physician Documentation [facility] Name: Vanessa Young Age: 51 yrs Sex: Female : 1970 Arrival Date: 08/29/2021 Time: 18:55 Bed 28 Private MD: HARVEY Physician Elmer Hood HPI: 08/29 20:46 This 51 yrs old Female presents to ER via Ambulatory with complaints of Abdominal mh7 Swelling,. 20:46 The patient presents with abdominal pain in the left upper quadrant. Onset: The mh7 symptoms/episode began/occurred 3 day(s) ago. The symptoms radiate to the left flank. Associated signs and symptoms: Pertinent positives: nausea and vomiting, Pertinent negatives: anorexia, blood in stools, chest pain, constipation, diarrhea, dysuria, fever, headache, hematuria, palpitations, shortness of breath, vaginal discharge, vomiting blood. The symptoms are described as intermittent, vague, waxing/waning. Modifying factors: The symptoms are alleviated by nothing, the symptoms are aggravated by movement, touching the area. Severity of pain: At its worst the pain was moderate last night, in the emergency department the pain is unchanged. The patient has been recently been admitted at [facility], was discharged last week. 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 - Social history:: Smoking status: Patient denies any tobacco usage or history of. Patient/guardian denies using alcohol. ROS: 20:46 Constitutional: Negative for fever, chills, and weight loss, Eyes: Negative for injury, mh7 pain, redness, and discharge, ENT: Negative for injury, pain, and discharge, Neck: Negative for injury, pain, and swelling, Cardiovascular: Negative for chest pain, palpitations, and edema, Respiratory: Negative for shortness of breath, cough, wheezing, and pleuritic chest pain, : Negative for injury, bleeding, discharge, and swelling, MS/Extremity: Negative for injury and deformity, Skin: Negative for injury, rash, and discoloration, Neuro: Negative for headache, weakness, numbness, tingling, and seizure, Psych: Negative for depression, anxiety, suicide ideation, homicidal ideation, and hallucinations, Allergy/Immunology: Negative for hives, rash, and allergies, Endocrine: Negative for neck swelling, polydipsia, polyuria, polyphagia, and marked weight changes, Hematologic/Lymphatic: Negative for swollen nodes, abnormal bleeding, and unusual bruising. Exam: 20:46 Head/Face: Normocephalic, atraumatic. Eyes: Pupils equal round and reactive to light, mh7 extra-ocular motions intact. Lids and lashes normal. Conjunctiva and sclera are non-icteric and not injected. Cornea within normal limits. Periorbital areas with no swelling, redness, or edema. Neck: Trachea midline, no thyromegaly or masses palpated, and no cervical lymphadenopathy. Supple, full range of motion without nuchal rigidity, or vertebral point tenderness. No Meningismus. Chest/axilla: Normal chest wall appearance and motion. Nontender with no deformity. No lesions are appreciated. Cardiovascular: Regular rate and rhythm with a normal S1 and S2. No gallops, murmurs, or rubs. Normal PMI, no JVD. No pulse deficits. Respiratory: Lungs have equal breath sounds bilaterally, clear to auscultation and percussion. No rales, rhonchi or wheezes noted. No increased work of breathing, no retractions or nasal flaring. 20:46 Skin: Warm, dry with normal turgor. Normal color with no rashes, no lesions, and no evidence of cellulitis. MS/ Extremity: Pulses equal, no cyanosis. Neurovascular intact. Full, normal range of motion. Neuro: Awake and alert, GCS 15, oriented to person, place, time, and situation. Cranial nerves II-XII grossly intact. Motor strength 5/5 in all extremities. Sensory grossly intact. Cerebellar exam normal. Normal gait. Psych: Awake, alert, with orientation to person, place and time. Behavior, mood, and affect are within normal limits. 20:46 Constitutional: The patient appears in no acute distress, alert, awake, uncomfortable. 20:46 Abdomen/GI: Inspection: obese Bowel sounds: normal, in all quadrants, Palpation: moderate abdominal tenderness, in the left upper quadrant and left lower quadrant, mass, is not appreciated, rebound tenderness, is not appreciated, voluntary guarding, is not appreciated, involuntary guarding, is not appreciated, no appreciated organomegaly, Rectal exam: the exam is deferred, because of patient request, Indicators: McBurney's point is not tender, Elizabeth's sign is negative, Rovsing's sign is negative, Obturator sign is negative, Psoas sign is negative, Liver: no appreciated palpable abnormalities, Hernia: not appreciated. 20:46 Back: normal spinal alignment noted, CVA tenderness, that is mild, is noted on the left, vertebral tenderness, is not appreciated, muscle spasm, is not present. Vital Signs: 19:14 BP 145 / 86; Pulse 90; Resp 18; Temp 98.6(TE); Pulse Ox 98% on R/A; Weight 81.65 kg; ld1 Height 5 ft. 4 in. (162.56 cm); Pain 10/10; 19:29 BP 139 / 89 RA Supine (auto/reg); Pulse 78 MON; Resp 18; Temp 98.6(O); Pulse Ox 96% ; tk1 21:06 BP 132 / 84 RA Supine (auto/reg); Pulse 76 MON; Resp 16; Pulse Ox 98% on R/A; Pain tk1 10/10; 22:00 BP 149 / 85 RA Supine (auto/reg); Pulse 54 MON; Resp 18 S; Temp 98.1(O); Pulse Ox 98% tk1 on R/A; Pain 10/10; 22:05 BP 160 / 95 Supine (auto/reg); Pulse 56; Resp 20 S; Pulse Ox 96% on R/A; Pain 10/10; tk1 23:25 BP 128 / 79 RA Supine (auto/reg); Pulse 67 MON; Resp 16; Temp 98.5(O); Pulse Ox 98% on tk1 R/A; Pain 1/10; 19:14 Body Mass Index 30.90 (81.65 kg, 162.56 cm) ld1 MDM: 23:16 Differential diagnosis: bowel obstruction, diverticulitis, gastritis, gastroesophageal mh7 reflux disease, non-specific abd pain, pancreatitis, Peptic Ulcer Disease, Pyelonephritis, Ureterolithiasis, urinary tract infection. Data reviewed: vital signs, nurses notes, old medical records, lab test result(s), CBC, electrolytes, urinalysis, radiologic studies, CT scan. Data interpreted: Pulse oximetry: on room air is 96 %. Interpretation: normal. Counseling: I had a detailed discussion with the patient and/or guardian regarding: the historical points, exam findings, and any diagnostic results supporting the discharge/admit diagnosis, the presence of at least one elevated blood pressure reading (>120/80) during this emergency department visit, lab results, radiology results, the need for outpatient follow up, to return to the emergency department if symptoms worsen or persist or if there are any questions or concerns that arise at home. Response to treatment: the patient's symptoms have resolved after treatment, the patient's blood pressure is in an acceptable range, mental status has returned to baseline, the patient no longer shows bradycardia, the patient is not short of breath, the patient is not tachycardic, the patient's pain is gone, the patient's temperature has normalized, the patient is now symptom free, patient is well hydrated. Tolerating p.o. intake without difficulty. 23:19 Patient medically screened. [facility] 08/29 20:20 Order name: Basic Metabolic Panel; Complete Time: 21:57 [facility] 08/29 20:20 Order name: CBC with Diff; Complete Time: 21:57 [facility] 08/29 20:20 Order name: Hepatic Function; Complete Time: 21:57 [facility] 08/29 20:20 Order name: Lipase; Complete Time: 21:57 [facility] 08/29 21:04 Order name: Urine Dipstick-Ancillary; Complete Time: 21:57 [facility] 08/29 21:58 Order name: Urine Microscopic Only [facility] 08/29 20:20 Order name: CT Abd/Pelvis - IV Contrast Only; Complete Time: 22:01 [facility] 08/29 21:58 Order name: Urine Culture [facility] 08/29 21:58 Order name: Urine Microscopic Only [facility] 08/29 20:20 Order name: IV Saline Lock; Complete Time: 22:07 [facility] 08/29 20:20 Order name: Labs collected and sent; Complete Time: 22:07 [facility] 08/29 20:20 Order name: Urine Dipstick-Ancillary (obtain specimen); Complete Time: 20:58 [facility] 08/29 20:20 Order name: EKG; Complete Time: 20:20 [facility] 08/29 20:20 Order name: EKG - Nurse/Tech [facility] Administered Medications: 20:56 Drug: Pepcid (famotidine) 20 mg Route: IVP; Rate: bolus; Infused Over: 4 mins; Site: tk1 left antecubital; 22:06 Follow up: Response: No adverse reaction tk1 20:56 Drug: morphine 4 mg Route: IVP; Rate: bolus; Infused Over: 2 mins; Site: left tk1 antecubital; 22:05 Follow up: BP 160 / 95 Supine Right Arm Auto Regular; Pulse 56 bpm; Resp 20 bpm tk1 Spontaneous; Pulse Ox 96% RA; Pain 05/02 Adult 20:57 Drug: NS 0.9% 1000 ml Route: IV; Rate: 1000 ml; Infused Over: 1 hrs; Site: left tk1 antecubital; Delivery: Primary tubing; 22:06 Follow up: IV Status: Completed infusion; IV Intake: 1000ml tk1 20:57 Drug: Zofran (Ondansetron) 4 mg Route: IVP; Rate: bolus; Infused Over: 2 mins; Site: tk1 left antecubital; 22:06 Follow up: Response: Vomiting decreased tk1 22:21 Drug: Ketorolac 30 mg Route: IVP; Rate: bolus; Infused Over: 2 mins; Site: left tk1 antecubital; 23:21 Follow up: Response: Pain is decreased tk1 Disposition Summary: 08/29/21 23:19 Discharge Ordered Location: Home [facility] Problem: an ongoing problem [facility] Symptoms: have improved [facility] Condition: Stable [facility] Diagnosis - Abdominal pain, Generalized 7 - Constipation, unspecified [facility] Followup: [facility] - With: Private Physician - When: 1 - 2 days - Reason: Worsening of condition, Recheck today's complaints, Continuance of care, Re-evaluation by your physician Discharge Instructions: - Discharge Summary Sheet [facility] - Constipation, Adult, [id number] [facility] - Abdominal Pain, Adult, [id number] [facility] Forms: - Medication Reconciliation Form [facility] - Thank You Letter [facility] - Antibiotic Education [facility] - Prescription Opioid Use [facility] Prescriptions: - Dulcolax (bisacodyl) 5 mg Oral tablet,delayed release (DR/EC) - take 2 tablet by ORAL route once daily As needed; 10 tablet; Refills: 0, 7 Product Selection Permitted - ondansetron 4 mg Oral tablet,disintegrating - place 1 tablet by TRANSLINGUAL route every 8 hours As needed; 10 tablet; mh7 Refills: 0, Product Selection Permitted - Colace 100 mg Oral Tablet - take 1 tablet by ORAL route every 12 hours; 14 tablet; Refills: 0, Product 7 Selection Permitted Signatures: Dispatcher [employer] Elmer Presley MD MD 7 Kelsie Alford RN RN ld1 Ana Wild 1
--- NOTE | 2021-08-29 23:20 | ER ---
Nurse's Notes [facility] Name: Vanessa Young Age: 51 yrs Sex: Female : 1970 Arrival Date: 08/29/2021 Time: 18:55 Bed 28 Private MD: Diagnosis: Abdominal pain, Generalized;Constipation, unspecified Presentation: 08/29 19:14 Chief complaint: Patient states: LUQ pain - 5 days. Pt reports coming to ER 08/25/21 and ld1 eloping. C/O LUQ 05/02. Coronavirus screen: At this time, the client does not indicate any symptoms associated with coronavirus-19. Ebola Screen: No symptoms or risks identified at this time. Initial Sepsis Screen: Does the patient meet any 2 criteria? No. Patient's initial sepsis screen is negative. Does the patient have a suspected source of infection? No. Patient's initial sepsis screen is negative. Risk Assessment: Do you want to hurt yourself or someone else? Patient reports no desire to harm self or others. Onset of symptoms was August 29, 2021. 19:14 Method Of Arrival: Ambulatory ld1 19:14 Acuity: CLIFFORD 3 ld1 Triage Assessment: 19:15 General: Appears in no apparent distress. uncomfortable, Behavior is cooperative, ld1 anxious. Pain: Complains of pain in left upper quadrant Pain currently is 10 out of 10 on a pain scale. Pain began 2-3 days ago. Neuro: Level of Consciousness is awake, alert, obeys commands, Oriented to person, place, time, situation. Respiratory: Airway is patent Respiratory effort is even, unlabored. GI: Abdomen is round non-distended, Reports upper abdominal pain, nausea, vomiting. 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 - Social history:: Smoking status: Patient denies any tobacco usage or history of. Patient/guardian denies using alcohol. Screenin:29 Abuse screen: Denies threats or abuse. Denies injuries from another. Nutritional tk1 screening: No deficits noted. Tuberculosis screening: No symptoms or risk factors identified. Fall Risk None identified. Assessment: 19:29 General: Appears uncomfortable, well groomed, well developed, well nourished, Behavior tk1 is calm, cooperative, appropriate for age. Pain: Complains of pain in left lateral anterior chest Pain does not radiate. Pain currently is 10 out of 10 on a pain scale. Quality of pain is described as sharp, Pain began 2-3 days ago. Is intermittent, Alleviated by medications. Neuro: Level of Consciousness is awake, alert, obeys commands, Oriented to person, place, time, situation, Appropriate for age Tile Trimmer are equal bilaterally Moves all extremities. Full function Gait is steady, Speech is normal, Facial symmetry appears normal, Intact Cardiovascular: No deficits noted. Heart tones S1 S2. Respiratory: No deficits noted. Airway is patent Breath sounds are clear bilaterally. GI: Bowel sounds present X 4 quads. Abd is soft and non tender X 4 quads. : No deficits noted. Reports Diagnosed with UTI on 08/26/2021. EENT: No deficits noted. Derm: No deficits noted. Musculoskeletal: No deficits noted. 20:00 GI: Reports vomiting. tk1 21:29 Reassessment: Patient to Radiology via stretcher with tech for CT of abdomen. tk1 21:41 Reassessment: Patient returned from CT. tk1 22:07 Reassessment: No changes from previously documented assessment. Patient is alert, tk1 oriented x 3, equal unlabored respirations, skin warm/dry/pink. 23:00 Pain: Complains of pain in left lateral anterior chest Pain does not radiate. Pain tk1 currently is 2 out of 10 on a pain scale. Quality of pain is described as sharp, Pain began 2-3 days ago. Is intermittent, Alleviated by medications. 23:25 Reassessment: D/C per MD order. Discharge/Prescription instructions given to patient. tk1 Verbalized understanding. Ambulated to ED waiting room to await niece for transport home. Vital Signs: 19:14 BP 145 / 86; Pulse 90; Resp 18; Temp 98.6(TE); Pulse Ox 98% on R/A; Weight 81.65 kg; ld1 Height 5 ft. 4 in. (162.56 cm); Pain 10/10; 19:29 BP 139 / 89 RA Supine (auto/reg); Pulse 78 MON; Resp 18; Temp 98.6(O); Pulse Ox 96% ; tk1 21:06 BP 132 / 84 RA Supine (auto/reg); Pulse 76 MON; Resp 16; Pulse Ox 98% on R/A; Pain tk1 1010; 22:00 BP 149 / 85 RA Supine (auto/reg); Pulse 54 MON; Resp 18 S; Temp 98.1(O); Pulse Ox 98% tk1 on R/A; Pain 10/10; 22:05 BP 160 / 95 Supine (auto/reg); Pulse 56; Resp 20 S; Pulse Ox 96% on R/A; Pain 10/10; tk1 23:25 BP 128 / 79 RA Supine (auto/reg); Pulse 67 MON; Resp 16; Temp 98.5(O); Pulse Ox 98% on tk1 R/A; Pain 1/10; 19:14 Body Mass Index 30.90 (81.65 kg, 162.56 cm) ld1 ED Course: 18:55 Patient arrived in ED. as 19:15 Triage completed. ld1 19:15 Arm band placed on right wrist. ld1 19:23 Ana Wild is Primary Nurse. tk1 19:29 Patient has correct armband on for positive identification. Bed in low position. Call tk1 light in reach. Side rails up X 1. 19:29 No provider procedures requiring assistance completed. tk1 19:59 Elmer Hood MD is Attending Physician. mh7 20:55 Inserted saline lock: 18 gauge in left antecubital area, using aseptic technique. Blood tk1 collected. 21:42 CT Abd/Pelvis - IV Contrast Only In Process Unspecified. EDMS 22:07 Urine Microscopic Only Sent. tk1 22:07 Urine Microscopic Only Sent. tk1 22:07 Urine Culture Sent. tk1 23:21 IV discontinued, intact, bleeding controlled, No redness/swelling at site. Pressure tk1 dressing applied. Administered Medications: 20:56 Drug: Pepcid (famotidine) 20 mg Route: IVP; Rate: bolus; Infused Over: 4 mins; Site: tk1 left antecubital; 22:06 Follow up: Response: No adverse reaction tk1 20:56 Drug: morphine 4 mg Route: IVP; Rate: bolus; Infused Over: 2 mins; Site: left tk1 antecubital; 22:05 Follow up: BP 160 / 95 Supine Right Arm Auto Regular; Pulse 56 bpm; Resp 20 bpm tk1 Spontaneous; Pulse Ox 96% RA; Pain 10/ Adult 20:57 Drug: NS 0.9% 1000 ml Route: IV; Rate: 1000 ml; Infused Over: 1 hrs; Site: left tk1 antecubital; Delivery: Primary tubing; 22:06 Follow up: IV Status: Completed infusion; IV Intake: 1000ml tk1 20:57 Drug: Zofran (Ondansetron) 4 mg Route: IVP; Rate: bolus; Infused Over: 2 mins; Site: tk1 left antecubital; 22:06 Follow up: Response: Vomiting decreased tk1 22:21 Drug: Ketorolac 30 mg Route: IVP; Rate: bolus; Infused Over: 2 mins; Site: left tk1 antecubital; 23:21 Follow up: Response: Pain is decreased tk1 Intake: 22:06 IV: 1000ml; Total: 1000ml. tk1 Outcome: 23:19 Discharge ordered by MD. potter 23:27 Patient left the ED. tk1 Signatures: Dispatcher [employer] Anum Elizabeth Maurice, MD MD 7 Kelsie Alford RN RN ld1 Ana Wild tk1
[2021-08-30 00:40] VITALS: BP 128/79; TEMP 98.5; O2SAT 98
--- NOTE | 2021-08-30 11:31 | EKG ---
Test Date: 2021-08-29 Test Time: 21:57:32 Nail Machine Operator: LUKAS, MEASUREMENT RESULTS: Intervals: Rate: 48 GA: 184 QRSD: 80 QT: 468 QTc: 418 [place]: P: 55 GA: 184 QRS: 28 T: 26 INTERPRETIVE STATEMENTS: Sinus bradycardia Otherwise normal ECG Compared to ECG 10/25/2020 07:43:05 Sinus rhythm no longer present T-wave abnormality no longer present Electronically Signed On 08-30-21 11:30:21 WRAPAROUND FACILITATOR by Eze Cheng
== END 2021-08-29 23:27 | disposition home or self-care (01) ==
LOC: ER 18:54
DX: K59.00 Constipation, unspecified (principal); I10 Essential (primary) hypertension; Z88.0 Allergy status to penicillin; Z88.1 Allergy status to other antibiotic agents
CPT/HCPCS: 96361; 93005; 87088; 85025; 87086; 80048; 36415; 80076; 83690; 74177; 96375; 96374; 99284; Q9967; J7030; J2405; 81003; 81015

== ENCOUNTER 2022-04-05 12:10 | Emergency (ER) | payer BC ==
--- OUTSIDE RECORDS SUMMARY | 2022-04-05 12:14 | XMS REPORT | Continuity of Care Document ---
:1970 Author Organization [facility] Address [address] [place] [address] Care Team Providers Name Role Phone GINA ANTON Attending Clinician Unavailabl e Gina Anton MD Attending Clinician GINA ANTON Attending Clinician Unavailable Koflower_Duran Attending Clinician Unavailable Vonda_Duran Admitting Clinician Unavailable Payers Payer Name Policy Type Policy Number Effective Date Expiration Date S jared BSTX PPO AND [id number] 2021 00:00:00 OUT OF STATE [facility] OS [id number] 2021 00:00:00 POS/PPO/EPO OUT OF STATE [facility] [id number] - PPO - [facility] [place] [id number] Problems Condition Condition Condition Status Onset Resolution [...] Active Moderate Other [place] [facility] Social History Social Habit Start Date Stop Date Quantity Comments Source Sex Assigned At [birth year] [facility] 00:[facility] Smoking Status Start Date Stop Date Source Former Smoker Archie Mckeon Medications Ordered Filled Start Stop Current Ordering [...] Name COVID-19, mRNA, COVID-19, mRNA, 2020-09-15 Completed Mike yanely LNP-S, PF, 100 LNP-S, PF, 100 00:00:00 Medica l Group mcg/0.5 mL dose mcg/0.5 mL dose COVID-19, mRNA, COVID-19, mRNA, 2020-08-05 Completed Mckeon yanely LNP-S, PF, 100 LNP-S, PF, 100 00:00:00 Medica l Group mcg/0.5 mL dose mcg/0.5 mL dose influenza, influenza, 2020-07-31 Completed Archie injectable, injectable, 00:00:00 Medical Grou p quadrivalent quadrivalent Vital Signs Vital Name Observation Time Observation Value Comments Source BP Diastolic 2020-11-17 00:00:00 81 mm[facility]Hg[facility] Height 2020-11-17 00:00:00 54 [in_i] [facility] BMI (Body Mass 2020-11-17 00:00:00 47.1 kg/m2 [facility] Index) Group BP Systolic 2020-11-17 00:00:00 130 mm[Hg] [facility] Body Weight 2020-11-17 00:00:00 3126 [oz_av] [facility] Procedures Procedure Date / Time Performing Clinician Source Performed AMB REF TO BARIATRIC 2022-03-10 10:24:12 [facility] Plan of Care Planned Activity Planned Date Details Comments Source Future Scheduled 2022-03-24 INFLUENZA VACCINE (#1) [facility] 00:[facility]00 [code = INFLUENZA Medical Ce nter VACCINE (#1)] Future Scheduled 2022-03-[address] [facility] 00:[facility]:00 measurement (procedure) [facility] [code = 88786650] Future Scheduled 2021-07-[address] [facility] 00:00:00 (12+) [code = [facility] Center DEPRESSION SCREENING (12+)] Future Scheduled 2021 SHINGLES VACCINES ([address] [facility] 00:00:00 2) [code = SHINGLES [facility] VACCINES (1 of 2)] Future Scheduled 2016 Lipid panel (procedure) [facility] 00:00:00 [code = 26715354] Medical Ce nter Future Scheduled 1992 Screening for malignant [facility] Test 00:00:00 neoplasm of cervix Medical C enter (procedure) [code = 925756194] Future Scheduled 1990 DTAP/TDAP/TD VACCINES [facility] 00:00:00 (1 - Tdap) [code = Medical C enter DTAP/TDAP/TD VACCINES (1 - Tdap)] Future Scheduled 1989 HEPATITIS C SCREENING [facility] 00:00:00 [code = HEPATITIS C Medical Center SCREENING] Future Scheduled 1981 DIABETIC EYE EXAM [code [facility] 00:00:00 = DIABETIC EYE EXAM] Medical Center Future Scheduled [address] [facility] 00:[facility]:00 examination Medical Center (regime/therapy) [code = 122582490] Future Scheduled 1981 Urine screening for [facility] 00:00:00 protein (procedure) Medical Center [code = 983137626] Future Scheduled [address] [facility] Test 00:00:00 0-64 YRS (1 - PCV) Medical C enter [code = PNEUMOCOCCAL VACCINE 0-64 YRS (1 - PCV)] Future Scheduled 1972-01-03 COVID-19 VACCINE (#1) [facility] 00:00:00 [code = COVID-[address] VACCINE (#1)] Future Scheduled 1971 Screening for malignant [facility] Test 00:00:00 neoplasm of colon Medical Ce nter (procedure) [code = 444564324] Future Scheduled 1971 Screening for malignant [facility] Test 00:00:00 neoplasm of colon Medical Ce nter (procedure) [code = 523677961] Future Scheduled 1971 Screening for malignant [facility] Test 00:00:00 neoplasm of colon Medical Ce nter (procedure) [code = 678932186] Future Scheduled 1970 Sigmoidoscopy [code = [facility] 00:00:00 Sigmoidoscopy] Medical Cente r Future Scheduled 1971 Screening for malignant [facility] Test 00:00:00 neoplasm of breast Medical C enter (procedure) [code = 127185691] Future Scheduled 1971 CT Colonography (combo) [facility] Test 00:00:00 [code = CT Colonography [facility] (combo)] Future Scheduled 1971 Screening for malignant [facility] Test 00:00:00 neoplasm of colon Medical Ce nter (procedure) [code = 237773745] Encounters Start End Encounter Admission Attending Care Care Encounter Source Date/Time Date/Time Type Type Clinicians Facility Department ID 2022-02-28 Outpatient [facility] [id number] [place] 09:49:07 [id number] [facility] 2022-04-14 2022-04-14 Outpatient [facility] [id number] [facility] 00:00:00 00:00:00 GINA LUU 2022-03-11 2022-03-11 Outside Olivia [facility] [id number] [facility] 00[facility]00 Orders Gina luu [facility] 2022-03-10 2022-03-10 Outpatient OLIVIA [facility] [id number] [facility] 10:24:12 10:41:24 GINA LUU [facility] 2020-11-17 2020-11-17 Outpatient K[facility]ela_A [facility] [id number] [place] 09:59:00 09:59:00 0427 [facility] 2020-11-17 2020-11-17 Outpatient K[facility]ela[facility]A [facility] [id number] [place] 09:59:00 09:59:00 0428 [facility] 2020-11-17 2020-11-17 Outpatient K[facility]ela_A [facility] [id number] [place] 09:59:00 09:59:00 0429 Medical Group 2020-11-17 2020-11-17 Joanie [facility] [place] - [id number] M atagor 00:00:00 00:00:00 Discovery Vonda da PA-C: [address] [facility] [id number] [place] [address] , Ph. 2020-11-16 2020-11-16 Outpatient K[facility]ela_A [facility] [id number] [place] 12:48:00 12:48:00 0426 Medical Group Results This patient has no known results.
[2022-04-05] MEDS ORDERED: MAGNES/ALUMIN/SIMET 30ML UCUP ONE (13:37)
[2022-04-05] MEDS ORDERED: ASPIRIN 81 MG CHEWABLE TABLET ONE (13:37)
[2022-04-05] MEDS ORDERED: LORazepam 2 MG/ML VIAL ONE (13:38)
[2022-04-05] MEDS ORDERED: LIDOCAINE VISCOUS 2% SOLN 15 ML UDC ONE (13:38)
[2022-04-05 13:56] LABS: Protime INR 0.99
[2022-04-05 13:57] LABS: Absolute Lymphocytes (CBC) 2.7 K/uL (0.7-4.9); Hematocrit 43.1 % (36.0-45.0); Lymphocytes % 28.2 % (15.3-44.8); MCV 85.1 fL (80-100); MPV 8.6 fL (7.6-11.3); RBC Red Blood Cell Count 5.06 M/uL (3.86-4.86)
[2022-04-05 14:13] LABS: ALT/SGPT 32 U/L (12-78); AST/SGOT 9 U/L (15-37); Alkaline Phosphatase 94 U/L (45-117); BUN Blood Urea Nitrogen 15 mg/dL (7-18); Bicarbonate 26 mmol/L (21-32); Bilirubin Direct 0.2 mg/dL (0-0.2); Glomerular Filtration Rate 61 ml/min (=/>90); Magnesium 1.8 mg/dL (1.8-2.4); NT PRO-BNP 28 pg/mL (<125); Potassium 4.3 mmol/L (3.5-5.1); Protein, Total 8.3 g/dL (6.4-8.2); Sodium Level 132 mmol/L (136-145)
[2022-04-05 14:19] LABS: Troponin High Sensitivity < 3.0 pg/mL (<58.9)
[2022-04-05 14:21] LABS: Glucose Level 434 mg/dL (74-106)
[2022-04-05] MEDS ORDERED: NA CHLORIDE 0.9% 1,000 ML ONE (14:55)
--- NOTE | 2022-04-05 15:09 | RAD REPORT ---
EXAM DESCRIPTION: CT - Chest For Pe Angio - 04/05/2022 3:01 pm CLINICAL HISTORY: Chest pain. chest pain, sob gt; d-dimer COMPARISON: Chest For Pe Angio dated 05/05/2017 TECHNIQUE: CT angiogram of the pulmonary arteries was performed with MIP. All CT scans are performed using dose optimization technique as appropriate and may include automated exposure control or mA/KV adjustment according to patient size. FINDINGS: No evidence of pulmonary thromboembolism. No acute aortic finding demonstrated. The lungs are clear. No significant pericardial or pleural fluid. No concerning bony finding. IMPRESSION: No evidence of pulmonary thromboembolism. No acute lung findings.
--- NOTE | 2022-04-05 15:48 | RAD REPORT ---
EXAM DESCRIPTION: RAD - Chest Single View - 04/05/2022 3:40 pm CLINICAL HISTORY: CHEST PAIN Chest pain. COMPARISON: Chest Single View dated 10/25/2020; Chest Single View dated 09/23/2020; Chest Single View da krista 05/05/2017; Chest Single View dated 11/23/2016 FINDINGS: Portable technique limits examination quality. The lungs are grossly clear. The heart is normal in size. No displaced fractures. IMPRESSION: No acute intrathoracic process suspected.
[2022-04-05] MEDS ORDERED: INSULIN -REGULAR HUMAN 50 UNIT/0.5 ML ML ONE (16:51)
--- NOTE | 2022-04-05 18:11 | ER ---
Nurse's Notes [facility] Name: Vanessa Young Age: 51 yrs Sex: Female : 1970 Arrival Date: 04/05/2022 Time: 12:12 Bed 28 Private MD: Diagnosis: Chest pain, unspecified Presentation: 04/05 12:26 Chief complaint: Patient states: I started having chest pain this morning. I went to [facility] Dr. Ryan yesterday and he said he thinks I have CHF. Coronavirus screen: At this time, the client does not indicate any symptoms associated with coronavirus-19. Ebola Screen: No symptoms or risks identified at this time. Initial Sepsis Screen: Does the patient meet any 2 criteria? No. Patient's initial sepsis screen is negative. Does the patient have a suspected source of infection? No. Patient's initial sepsis screen is negative. Risk Assessment: Do you want to hurt yourself or someone else? Patient reports no desire to harm self or others. Onset of symptoms was April 05, 2022 at 09:00. 12:26 Method Of Arrival: Ambulatory [facility] 12:26 Acuity: CLIFFORD 2 7 Triage Assessment: 12:32 General: Appears distressed, uncomfortable, obese, Behavior is anxious, restless. Pain: 7 Complains of pain in mid-sternal area Pain radiates to left arm. EENT: No deficits noted. No signs and/or symptoms were reported regarding the EENT system. Neuro: Reports numbness in left arm. Cardiovascular: Rhythm is sinus tachycardia Chest pain is described as diffuse, quality is pressure, sharp, is located in chest wall radiates to left arm(s). Respiratory: Reports shortness of breath labored breathing Airway is patent Trachea midline Respiratory effort is even, unlabored, Respiratory pattern is tachypnea Breath sounds are clear bilaterally. GI: No deficits noted. No signs and/or symptoms were reported involving the gastrointestinal system. : No deficits noted. No signs and/or symptoms were reported regarding the genitourinary system. Derm: No deficits noted. No signs and/or symptoms reported regarding the dermatologic system. Musculoskeletal: No deficits noted. No signs and/or symptoms reported regarding the musculoskeletal system. 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 - Social history:: Smoking status: Patient denies any tobacco usage or history of. Screenin:51 Abuse screen: Denies threats or abuse. Denies injuries from another. Nutritional 5 screening: No deficits noted. Tuberculosis screening: No symptoms or risk factors identified. Fall Risk None identified. Vital Signs: 12:26 BP 131 / 90; Pulse 128; Resp 22; Temp 98.3(TE); Pulse Ox 99% on R/A; Weight 90.72 kg bm7 (R); Height 5 ft. 4 in. (162.56 cm); Pain 10/10; 13:43 BP 116 / 80; Pulse 107; Resp 20; Pulse Ox 96% on R/A; tm3 13:44 BP 116 / 80; Pulse 107; Resp 18; Pulse Ox 96% ; tm3 15:49 BP 115 / 78; Pulse 96; Resp 18; Pulse Ox 99% ; jh5 16:55 BP 110 / 73; Pulse 97; Pulse Ox 99% on R/A; ap3 12:26 Body Mass Index 34.33 (90.72 kg, 162.56 cm) bm7 ED Course: 12:12 Patient arrived in ED. am2 12:32 Triage completed. bm7 12:32 Arm band placed on right wrist. bm7 12:43 Cynthia Jackson, RONEN is Primary Nurse. [facility] 13:00 Jasiel Beckham PA is PHCP. [facility] 13:00 Kali Spivey MD is Attending Physician. [facility] 13:36 Initial lab(s) drawn, by az, sent to lab. Inserted saline lock: 20 gauge in left tm3 antecubital area, using aseptic technique. 13:51 Patient has correct armband on for positive identification. Client placed on continuous 5 cardiac and pulse oximetry monitoring. NIBP monitoring applied. 13:51 No provider procedures requiring assistance completed. Patient maintains SpO2 5 saturation greater than 95% on room air. 14:07 Notified Nurse Practitioner and/or Physician Forest Firefighter of a critical lab result(s), jl7 D-Dimer 617. 15:03 CT Chest For PE Angio In Process Unspecified. EDMS 15:42 XRAY Chest (1 view) In Process Unspecified. EDMS Administered Medications: 13:35 Drug: Ativan (LORazepam) 0.5 mg Route: IVP; Site: left antecubital; jh5 16:50 Follow up: Response: No adverse reaction; Anxiety decreased ap3 13:35 Drug: Aspirin Chewable Tablet 324 mg Route: PO; jh5 16:50 Follow up: Response: No adverse reaction ap3 13:35 Drug: GI Cocktail without - (Maalox Suspension 30 ml, Lidocaine Liquid 2 % 15 jh5 ml) Route: PO; 15:15 Drug: NS 0.9% 1000 ml Route: IV; Rate: 1 bolus; Site: left antecubital; ap3 16:53 Drug: Insulin Regular Human 10 units {Co-Signature: ap3 (Halle Barbour RN).} Route: jh5 IVP; Site: left antecubital; Medication: 13:52 VIS not applicable for this client. 5 Outcome: 18:11 Discharge ordered by MD. mccurdy 18:26 Patient left the ED. 5 Signatures: Dispatcher [employer] EDMS Wale Rosenberg tm3 Jasiel Beckham PA PA jmm Leal, Jahala RN RN [email or web address] Halle Lincoln Amanda, RN RN ap3 Loli Hinton RN RN bm7 Cynthia Jackson RN RN jh5 Halle Barbour RN ap3 Corrections: (The following items were deleted from the chart) 13:44 13:44 BP 116 / 80; Pulse 109bpm; Pulse Ox 96%; ap3 tm3
--- NOTE | 2022-04-05 18:12 | EDPHYS ---
Physician Documentation [facility] Name: Vanessa Young Age: 51 yrs Sex: Female : 1970 Arrival Date: 04/05/2022 Time: 12:12 Bed 28 Private MD: Kali Salazar HPI: 04/05 13:12 This 51 yrs old Female presents to ER via Ambulatory with complaints of Chest Pain. m 13:12 The patient or guardian reports chest pain that is located primarily in the substernal [facility] area. Onset: acutely, this morning, at 09:00. The pain does not radiate. Associated signs and symptoms: Pertinent positives: near-syncope, shortness of breath. The chest pain is described as aching, sharp. Duration: The patient or guardian reports a single episode, that is still ongoing. Modifying factors: The symptoms are alleviated by nothing. the symptoms are aggravated by nothing. This is a 51-year-old female with history of anxiety, diabetes mellitus, depression, hypertension the presents emerged part with complaints of substernal chest pain beginning this morning around 9 AM. Patient states also having a near syncopal episode as well. Patient is currently taking diuretics due to her PCP is concerned for heart failure.. 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 - Social history:: Smoking status: Patient denies any tobacco usage or history of. ROS: 13:12 Cardiovascular: Positive for chest pain. jmm 13:12 Respiratory: Positive for shortness of breath. 13:12 All other systems are negative. Exam: 13:12 Constitutional: This is a well developed, well nourished patient who is awake, alert, jmm and in no acute distress. Head/Face: atraumatic. Eyes: EOMI, no conjunctival erythema appreciated ENT: Moist Mucus Membranes Neck: Trachea midline, Supple Chest/axilla: Normal chest wall appearance and motion. Cardiovascular: Regular rate and rhythm. No edema appreciated 13:12 Back: Normal ROM Skin: General appearance color normal MS/ Extremity: Moves all extremities, no obvious deformities appreciated, no edema noted to the lower extremities Neuro: Awake and alert Psych: Behavior is normal, Mood is normal, Patient is cooperative and pleasant 13:12 Chest/axilla: Inspection: normal, Palpation: tenderness, that is mild, that does not reproduce the patient's complaints. Vital Signs: 12:26 BP 131 / 90; Pulse 128; Resp 22; Temp 98.3(TE); Pulse Ox 99% on R/A; Weight 90.72 kg bm7 (R); Height 5 ft. 4 in. (162.56 cm); Pain 10/10; 13:43 BP 116 / 80; Pulse 107; Resp 20; Pulse Ox 96% on R/A; tm3 13:44 BP 116 / 80; Pulse 107; Resp 18; Pulse Ox 96% ; tm3 15:49 BP 115 / 78; Pulse 96; Resp 18; Pulse Ox 99% ; jh5 16:55 BP 110 / 73; Pulse 97; Pulse Ox 99% on R/A; ap3 12:26 Body Mass Index 34.33 (90.72 kg, 162.56 cm) bm7 MDM: 13:12 Patient medically screened. [facility] 18:06 The patient was given aspirin in the Emergency Department. Data reviewed: vital signs, [facility] nurses notes. Counseling: I had a detailed discussion with the patient and/or guardian regarding: the historical points, exam findings, and any diagnostic results supporting the discharge/admit diagnosis, lab results, radiology results, the need for outpatient follow up, to return to the emergency department if symptoms worsen or persist or if there are any questions or concerns that arise at home. 18:10 Data reviewed: lab test result(s), radiologic studies. [facility] 04/05 13:13 Order name: Basic Metabolic Panel; Complete Time: 14:35 [facility] 04/05 13:13 Order name: CBC with Diff; Complete Time: 14:08 [facility] 04/05 13:13 Order name: D-Dimer; Complete Time: 14:08 [facility] 04/05 13:13 Order name: LFT's; Complete Time: 14:35 [facility] 04/05 13:13 Order name: Magnesium; Complete Time: 14:35 [facility] 04/05 13:13 Order name: NT PRO-BNP; Complete Time: 14:35 [facility] 04/05 13:13 Order name: PT-INR; Complete Time: 14:08 [facility] 04/05 13:13 Order name: Troponin HS; Complete Time: 14:35 [facility] 04/05 13:13 Order name: XRAY Chest (1 view); Complete Time: 15:49 [facility] 04/05 14:36 Order name: CT Chest For PE Angio; Complete Time: 15:12 [facility] 04/05 16:42 Order name: Troponin High Sensitivity; Complete Time: 17:44 [facility] 04/05 18:18 Order name: Glucose, Ancillary Testing; Complete Time: 18:24 [facility] 04/05 13:13 Order name: EKG; Complete Time: 13:14 [facility] 04/05 13:13 Order name: Cardiac monitoring; Complete Time: 13:24 [facility] 04/05 13:13 Order name: EKG - Nurse/Tech; Complete Time: 13:24 [facility] 04/05 13:13 Order name: IV Saline Lock; Complete Time: 13:35 [facility] 04/05 13:13 Order name: Labs collected and sent; Complete Time: 13:35 [facility] 04/05 13:13 Order name: O2 Per Protocol; Complete Time: 13:35 [facility] 04/05 13:13 Order name: O2 Sat Monitoring; Complete Time: 13:35 [facility] 04/05 17:56 Order name: Finger Stick; Complete Time: 18:06 [facility] Administered Medications: 13:35 Drug: Ativan (LORazepam) 0.5 mg Route: IVP; Site: left antecubital; jh5 16:50 Follow up: Response: No adverse reaction; Anxiety decreased ap3 13:35 Drug: Aspirin Chewable Tablet 324 mg Route: PO; jh5 16:50 Follow up: Response: No adverse reaction ap3 13:35 Drug: GI Cocktail without - (Maalox Suspension 30 ml, Lidocaine Liquid 2 % 15 jh5 ml) Route: PO; 15:15 Drug: NS 0.9% 1000 ml Route: IV; Rate: 1 bolus; Site: left antecubital; ap3 16:53 Drug: Insulin Regular Human 10 units {Co-Signature: ap3 (Halle Barbour RN).} Route: 5 IVP; Site: left antecubital; Disposition Summary: 04/05/22 18:11 Discharge Ordered Location: Home jmm Condition: Stable jmm Diagnosis - Chest pain, unspecified jmm Followup: jmm - With: Private Physician - When: 1 - 2 days - Reason: Recheck today's complaints, Continuance of care, Re-evaluation by your physician Discharge Instructions: - Discharge Summary Sheet jmm - Nonspecific Chest Pain, Adult jmm Forms: - Medication Reconciliation Form jmm - Thank You Letter jmm - Antibiotic Education jmm - Prescription Opioid Use jmm Signatures: Dispatcher [employer] EDJasiel Malin PA PA jmm Prokisch, Amanda, RN RN ap3 Loli Hinton, RONEN RN bm7 Cynthia Jackson RN RN jh5 Halle Barbour RN ap3
[2022-04-06 04:40] VITALS: TEMP 98.3
[2022-04-06 04:46] VITALS: O2SAT 99
[2022-04-06 04:49] VITALS: BP 110/73
--- NOTE | 2022-04-06 17:11 | EKG ---
Test Date: 2022-04-05 Test Time: 12:33:35 Checker In: JEREL MEASUREMENT RESULTS: Intervals: Rate: 115 NJ: 128 QRSD: 66 QT: 314 QTc: 434 Liguori: P: 65 NJ: 128 QRS: 47 T: 60 INTERPRETIVE STATEMENTS: Sinus tachycardia Otherwise normal ECG Compared to ECG 08/29/2021 21:57:32 Sinus bradycardia no longer present Electronically Signed On 04-06-22 17:06:58 CDT by Eze Cheng
== END 2022-04-05 18:26 | disposition home or self-care (01) ==
LOC: ER 12:10
DX: R07.9 Chest pain, unspecified (principal); I10 Essential (primary) hypertension; Z88.0 Allergy status to penicillin; Z88.1 Allergy status to other antibiotic agents
CPT/HCPCS: 93005; 85025; 80048; 36415; 83735; 85610; 82947; 85379; 80076; 84484 ×2; 83880; 71275; 71045; 96375; 96374; 99285; Q9967; J1815; J7030

== ENCOUNTER 2022-04-21 12:17 | Observation (INO) | payer BC ==
--- OUTSIDE RECORDS SUMMARY | 2022-04-21 12:20 | XMS REPORT | Continuity of Care Document ---
:1970 Author Organization [facility] Address [address] [place] [address] Care Team Providers Name Role Phone Dariusz Attending Clinician Unavailable GINA ANTON Attending Clinician Unavailtierney e Gina Anton MD Attending Clinician GINA ANTON Attending Clinician Unavailable Sindy Attending Clinician Unavailable Dariusz Admitting Clinician Unavailable Sindy Admitting Clinician Unavailable Payers Payer Name Policy Type Policy Number Effective Date Expiration Date S jared BCBSTX PPO AND [id number] 2021 00:00:00 [place] [id number] 2021 00[place]00 [place] [id number] 2021 00:00:00 POS/PPO/EPO OUT OF STATE BCBS [id number] - PPO - BCBS [facility] [id number] Problems Condition Condition Condition Status Onset Resolution [...] ents Source Name Type Date Date Clinician Radha Allergy Active Moderate Other [facility] Social History Social Habit Start Date Stop Date Quantity Comments Source Sex Assigned At [birth year] [facility] Smoking Status Start Date Stop Date Source Former Smoker [facility] Medications Ordered Filled Start [...] Ordered Immunization Filled Immunization Date Status Commen Source Name Name COVID-19, mRNA, COVID-19, mRNA, [...] Source BP Diastolic 2020-11-17 00:00:00 81 mm[Hg] [facility] Height 2020-11-17 00:00:00 54 [in_i] [facility] BMI (Body Mass 2020-11-17 00:00:00 47.1 kg/m2 [facility] Index) Group BP Systolic 2020-11-17 00:00:00 130 mm[facility]Hg[facility] Body Weight 2020-11-17 00:00:00 3126 [oz_av] [facility] Procedures Procedure Date / Time Performing Clinician Source Performed AMB REF TO BARIATRIC 2022-03-10 10:24:12 [facility] Tubal L[facility] Cholecyst[facility] Plan of Care Planned Activity Planned Date Details Comments Source Future Scheduled 2022-03-24 INFLUENZA VACCINE (#1) [facility] 00:00:00 [code = INFLUENZA Medical Ce nter VACCINE (#1)] Future Scheduled 2022-03-24 INFLUENZA VACCINE (#1) [facility] 00:00:00 [code = INFLUENZA Medical Ce nter VACCINE (#1)] Future Scheduled 2022-03-[address] [facility] 00:[facility]:00 measurement (procedure) [facility] [code = 44768043] Future Scheduled 2022-03-[address] [facility] 00:00:00 measurement (procedure) [facility] [code = 18742129] Future Scheduled 2021-07-[address] [facility] 00:00:00 (12+) [code = [facility] DEPRESSION SCREENING (12+)] Future Scheduled 2021-07-[address] [facility] 00:00:00 (12+) [code = [facility] DEPRESSION SCREENING (12+)] Future Scheduled 2021 SHINGLES VACCINES ([address] [facility] 00:00:00 2) [code = SHINGLES [facility] VACCINES (1 of 2)] Future Scheduled 2021 SHINGLES VACCINES ([address] [facility] 00:00:00 2) [code = SHINGLES [facility] VACCINES (1 of 2)] Future Scheduled 2016 Lipid panel (procedure) [facility] 00:00:00 [code = 37663422] Medical Ce nter Future Scheduled 2016 Lipid panel (procedure) [facility] 00:00:00 [code = 91718758] Medical Ce nter Future Scheduled 1992 Screening for malignant [facility] 00:00:00 neoplasm of cervix Medical C enter (procedure) [code = 579342980] Future Scheduled 1992 Screening for malignant [facility] 00:00:00 neoplasm of cervix Medical C enter (procedure) [code = 132757856] Future Scheduled 1990 DTAP/TDAP/TD VACCINES [facility] 00:00:00 (1 - Tdap) [code = Medical C enter DTAP/TDAP/TD VACCINES (1 - Tdap)] Future Scheduled 1990 DTAP/TDAP/TD VACCINES [facility] 00:00:00 (1 - Tdap) [code = Medical C enter DTAP/TDAP/TD VACCINES (1 - Tdap)] Future Scheduled 1989 HEPATITIS C [facility]CRE[facility]ING [facility] 00:00:00 [code = HEPATITIS C Medical Center SCREENING] Future Scheduled 1989 HEPATITIS C [facility]ING [facility] 00:00:00 [code = HEPATITIS C Medical Center SCREENING] Future Scheduled 1981 DIABETIC EYE EXAM [code [facility] 00:00:00 = DIABETIC EYE EXAM] Medical Center Future Scheduled [address] [facility] 00:[facility]:00 examination Medical Center (regime/therapy) [code = 047826718] Future Scheduled 1981 Urine screening for [facility] 00:00:00 protein (procedure) Medical Center [code = 121647698] Future Scheduled 1981 DIABETIC EYE EXAM [code [facility] 00:00:00 = DIABETIC EYE EXAM] Medical Center Future Scheduled [address] [facility] 00:00:00 examination Medical Center (regime/therapy) [code = 496056670] Future Scheduled 1981 Urine screening for [facility] 00:00:00 protein (procedure) Medical Center [code = 085172751] Future Scheduled [address] [facility] 00:00:00 0-64 YRS (1 - PCV) Medical C enter [code = PNEUMOCOCCAL VACCINE 0-64 YRS (1 - PCV)] Future Scheduled [address] [facility] 00:00:00 0-64 YRS (1 - PCV) Medical C enter [code = PNEUMOCOCCAL VACCINE 0-64 YRS (1 - PCV)] Future Scheduled 1972-01-03 COVID-19 VACCINE (#1) [facility] 00:00:00 [code = COVID-[address] VACCINE (#1)] Future Scheduled 1972-01-03 COVID-19 VACCINE (#1) [facility] 00:00:00 [code = COVID-[address] VACCINE (#1)] Future Scheduled 1971 Screening for malignant [facility] 00:00:00 neoplasm of colon Medical Ce nter (procedure) [code = 698920004] Future Scheduled 1971 Screening for malignant [facility] 00:00:00 neoplasm of colon Medical Ce nter (procedure) [code = 953859680] Future Scheduled 1971 Screening for malignant [facility] 00:00:00 neoplasm of colon Medical Ce nter (procedure) [code = 915453296] Future Scheduled 1971 Sigmoidoscopy [code = [facility] S[facility]oscopy] Medical Cent[facility] r Future Scheduled 1971 Screening for malignant [facility] 00:00:00 neoplasm of breast Medical C enter (procedure) [code = 619696472] Future Scheduled 1971 CT Colonography (combo) [facility] 00:00:00 [code = CT Colonography [facility] (combo)] Future Scheduled 1971 Screening for malignant [facility] 00:00:00 neoplasm of colon Medical Ce nter (procedure) [code = 572767820] Future Scheduled 1971 Screening for malignant [facility] 00:00:00 neoplasm of colon Medical Ce nter (procedure) [code = 794624930] Future Scheduled 1971 Screening for malignant [facility] 00:00:00 neoplasm of colon Medical Ce nter (procedure) [code = 599534409] Future Scheduled 1971 Screening for malignant [facility] 00:00:00 neoplasm of colon Medical Ce nter (procedure) [code = 052210811] Future Scheduled 1971 Sigmoidoscopy [code = [facility] 00:[facility] Sigmoidoscopy] Medical Cente r Future Scheduled 1971 Screening for malignant [facility] 00:00:00 neoplasm of breast Medical C enter (procedure) [code = 936133120] Future Scheduled 1971 CT Colonography (combo) [facility] 00:00:00 [code = CT Colonography [facility] (combo)] Future Scheduled 1971 Screening for malignant [facility] 00:00:00 neoplasm of colon Medical Ce nter (procedure) [code = 844294851] Encounters Start End Encounter Admission Attending Care Care Encounter Source Date/Time Date/Time Type Type Clinicians Facility Department ID 2022-02-28 Outpatient [facility] [id number] [place] 09:49:07 [id number] [facility] 2022-04-20 2022-04-20 Outpatient Daniel_T VFP [id number] [id number] [address] [place] [address] 00:00:00 00:00:00 [id number] Family Practic e 2022-04-14 2022-04-14 Outpatient [facility] [id number] [facility] 00:00:00 00:00:00 GINA LUU 2022-03-11 2022-03-11 Outside MicFranklinriya [facility] [id number] 00:[facility] 00[facility]00 Orders Gina luu [facility] 2022-03-11 2022-03-11 Outside Olivia [facility] [id number] 00:[facility] 00:00:00 Orders Gina luu [facility] 2022-03-10 2022-03-10 Outpatient OL[facility] [id number] [facility] 10:24:12 10:41:24 GINA LUU of Medicin e 2020-11-17 2020-11-17 [id number] -[id number] [place] 09:59:00 09:59:00 [facility] 2020-11-17 2020-11-17 Outpatient Koudela_A MMG [id number] -[id number] [place] 09:59:00 09:59:00 [facility] 2020-11-17 2020-11-17 Outpatient Koudela_A MMG [id number] -[id number] [place] 09:59:00 09:59:00 0429 [facility] 2020-11-17 2020-11-17 Joanie [facility] [place] - [id number] M [facility] 00:00:00 00:00:00 Discovery Laurita FerrariC: [address] [facility] - [address], [facility], [place] [address] , Ph. 2020-11-16 2020-11-16 [facility] [id number] [facility] 12:48:00 12:48:00 0426 Medical Group 2020-06-15 2020-06-15 Outpatient Daninayely_T VFP [id number] [id number] [facility] 00:00:00 00:00:00 [id number] [facility] Practic e Results This patient has no known results.
[2022-04-21 12:59] LABS: Absolute Lymphocytes (CBC) 3.3 K/uL (0.7-4.9); Hematocrit 38.2 % (36.0-45.0); Lymphocytes % 38.6 % (15.3-44.8); MCV 84.8 fL (80-100); MPV 8.6 fL (7.6-11.3)
[2022-04-21 13:01] LABS: Protime INR 0.92
--- NOTE | 2022-04-21 13:11 | RAD REPORT ---
EXAM DESCRIPTION: RAD - Chest Single View - 04/21/2022 12:56 pm CLINICAL HISTORY: CHEST PAIN COMPARISON: CT chest April 05, portable chest April 05 TECHNIQUE: AP portable chest image was obtained 04/21/2022 12:56 pm . FINDINGS: Lung volumes are low. No focal lung parenchymal process seen. No failure or volume overloa d findings. Interstitial pattern matches comparison. Heart and vasculature are normal. No measurable pleural effusion and no pneumothorax. No acute bony abnormality seen. No acute aortic findings suspec krista. IMPRESSION: No acute cardiopulmonary process. No significant change from comparison study.
[2022-04-21 13:13] LABS: SARS-CoV-2 Antigen Rapid Res Negative (Negative)
[2022-04-21] MEDS ORDERED: ONDANSETRON 4 MG/2 ML VIAL ONE (13:13)
[2022-04-21] MEDS ORDERED: MORPHINE 4 MG/ML SYR ONE (13:13)
[2022-04-21 13:24] LABS: Albumin 3.4 g/dL (3.4-5.0); Bilirubin Direct 0.1 mg/dL (0-0.2); Bilirubin Total 0.5 mg/dL (0.2-1.0); Magnesium 1.7 mg/dL (1.8-2.4); Potassium 3.6 mmol/L (3.5-5.1); Protein, Total 7.3 g/dL (6.4-8.2)
--- NOTE | 2022-04-21 13:49 | EDPHYS ---
Physician Documentation [facility] Name: Vanessa Young Age: 51 yrs Sex: Female : 1970 Arrival Date: 04/21/2022 Time: 12:19 Bed 10 Private MD: Vin Ryan T ED Physician Silver Dean HPI: 04/21 12:35 This 51 yrs old Female presents to ER via Ambulatory with complaints of Chest Pain. [facility] 12:35 The patient or guardian reports chest pain that is located primarily in the substernal [facility] area. Onset: gradually, 1 month(s) ago. The pain radiates to the left arm. Associated signs and symptoms: Pertinent positives: shortness of breath. The chest pain is described as a pressure. Duration: The patient or guardian reports a single episode, that is still ongoing. Modifying factors: The symptoms are alleviated by nothing. the symptoms are aggravated by nothing. The patient has experienced similar episodes in the past. 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 - Social history:: Smoking status: Patient denies any tobacco usage or history of. ROS: 12:36 Constitutional: Negative for fever, chills, and weight loss. [facility] 12:36 Cardiovascular: Positive for chest pain. 12:36 Respiratory: Positive for shortness of breath. 12:36 All other systems are negative. Exam: 12:36 Constitutional: This is a well developed, well nourished patient who is awake, alert, jmm and in no acute distress. Head/Face: atraumatic. Eyes: EOMI, no conjunctival erythema appreciated ENT: Moist Mucus Membranes Neck: Trachea midline, Supple Chest/axilla: Normal chest wall appearance and motion. Cardiovascular: Regular rate and rhythm. No edema appreciated Respiratory: Normal respirations, no respiratory distress appreciated Abdomen/GI: Non distended Back: Normal ROM Skin: General appearance color normal MS/ Extremity: Moves all extremities, no obvious deformities appreciated, no edema noted to the lower extremities Neuro: Awake and alert Psych: Behavior is normal, Mood is normal, Patient is cooperative and pleasant 17:30 ECG was reviewed by the Attending Physician. [facility] Vital Signs: 12:25 BP 148 / 97; Pulse 77; Resp 18; Temp 98.8; Pulse Ox 98% ; Weight 90.72 kg; Height 5 ft. 5 4 in. (162.56 cm); Pain 8/10; 13:00 BP 139 / 77; Pulse 89; Resp 20; Pulse Ox 95% ; kb3 14:00 BP 123 / 80; Pulse 79; Resp 18; Pulse Ox 97% ; kb3 12:25 Body Mass Index 34.33 (90.72 kg, 162.56 cm) [facility] MDM: 12:29 Patient medically screened. [facility] 13:47 The patient was given aspirin in the Emergency Department. Data reviewed: vital signs, [facility] nurses notes, lab test result(s), EKG, radiologic studies. 04/21 12:31 Order name: Basic Metabolic Panel; Complete Time: 13:34 [facility] 04/21 12:31 Order name: CBC with Diff; Complete Time: 13:04 [facility] 04/21 12:31 Order name: LFT's; Complete Time: 13:34 [facility] 04/21 12:31 Order name: Magnesium; Complete Time: 13:34 [facility] 04/21 12:31 Order name: NT PRO-BNP; Complete Time: 13:34 [facility] 04/21 12:31 Order name: PT-INR; Complete Time: 13:01 [facility] 04/21 12:31 Order name: Troponin HS; Complete Time: 13:34 [facility] 04/21 12:31 Order name: SARS RAPID; Complete Time: 13:34 [facility] 04/21 14:08 Order name: Basic Metabolic Panel [facility] 04/21 14:08 Order name: Basic Metabolic Panel [facility] 04/21 14:08 Order name: CBC with Automated Diff [facility] 04/21 14:08 Order name: CBC with Automated Diff [facility] 04/21 14:08 Order name: Lipid Profile [facility] 04/21 14:08 Order name: Lipid Profile; Complete Time: 15:12 [facility] 04/21 12:31 Order name: XRAY Chest (1 view); Complete Time: 13:12 [facility] 04/21 12:31 Order name: EKG; Complete Time: 12:32 [facility] 04/21 12:31 Order name: Cardiac monitoring; Complete Time: 12:41 [facility] 04/21 12:31 Order name: EKG - Nurse/Tech; Complete Time: 12:41 [facility] 04/21 14:06 Order name: CONS Physician Consult [facility] 04/21 14:08 Order name: Heart Healthy [facility] 04/21 14:08 Order name: Troponin High Sensitivity [facility] 04/21 14:08 Order name: Troponin High Sensitivity; Complete Time: 17:55 [facility] 04/21 14:08 Order name: Troponin High Sensitivity [facility] 04/21 14:08 Order name: Troponin High Sensitivity [facility] 04/21 14:10 Order name: Lipase; Complete Time: 15:12 [facility] 04/21 12:31 Order name: IV Saline Lock; Complete Time: 12:53 [facility] 04/21 12:31 Order name: Labs collected and sent; Complete Time: 12:53 [facility] 04/21 12:31 Order name: O2 Per Protocol; Complete Time: 12:41 [facility] 04/21 12:31 Order name: O2 Sat Monitoring; Complete Time: 12:41 jm EC:30 Rate is 79 beats/min. Rhythm is regular. QRS [place] is Normal. [place] interval is normal. QRS jmm interval is normal. QT interval is normal. No Q waves. T waves are Inverted in lead III. No ST changes noted. Reviewed by me. Administered Medications: 13:18 Drug: morphine 4 mg Route: IVP; Infused Over: 4 mins; Site: right antecubital; kb3 14:15 Follow up: Response: No adverse reaction; Pain is decreased kb3 13:18 Drug: Zofran (Ondansetron) 4 mg Route: IVP; Site: right antecubital; kb3 14:15 Follow up: Response: No adverse reaction; Nausea is decreased kb3 14:10 Drug: Aspirin Chewable Tablet 324 mg Route: PO; kb3 14:47 Follow up: Response: No adverse reaction kb3 15:25 Drug: Pepcid (famotidine) 20 mg Route: IVP; Site: right antecubital; kb3 16:15 Follow up: Response: No adverse reaction; Marked relief of symptoms kb3 15:25 Drug: GI Cocktail without - (Maalox Suspension 30 ml, Lidocaine Liquid 2 % 15 kb3 ml) Route: PO; 16:15 Follow up: Response: No adverse reaction; Other kb3 Disposition: 18:28 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 I agree with assessment jr11 and care plan and confirm the diagnosis (es) above. Attestation: The patient's history, exam findings, diagnostics, and a summary of any interventions or procedures was reviewed in detail with Jasiel PURCELL. Disposition Summary: 04/21/22 13:48 Hospitalization Ordered Hospitalization Status: Observation [facility] Provider: Davidson Damian Location: Telemetry/MedSurg (observation) [facility] Condition: Stable jmm Problem: new jmm Symptoms: are unchanged jmm Bed/Room Type: Standard [facility] Room Assignment: 410(04/21/22 17:30) ss Diagnosis - Chest pain, unspecified jmm Forms: - Medication Reconciliation Form jmm - SBAR form jmm Signatures: Dispatcher [employer] EDJasiel Malin PA PA jmm Mari Arredondo RN RN ss Cynthia Jackson RN RN jh5 Silver Dean MD MD jr11 Danielle Solomon, RN RN kb3 Corrections: (The following items were deleted from the chart) 17:30 13:48 jmm ss
--- NOTE | 2022-04-21 13:49 | ER ---
Nurse's Notes [facility] Name: Vanessa Young Age: 51 yrs Sex: Female : 1970 Arrival Date: 04/21/2022 Time: 12:19 Bed 10 Private MD: Vin Ryan T Diagnosis: Chest pain, unspecified Presentation: 04/21 12:25 Chief complaint: Patient states: chest pain and fluid retention x1 month, saw Dr aretha Bear and was placed on diuretics on apr 04 - Pt states CP is midline and radiates to left arm. Coronavirus screen: Vaccine status: Patient reports receiving the 2nd dose of the covid vaccine. Client denies travel out of the [place] in the last 14 days. Ebola Screen: Patient negative for fever greater than or equal to 101.5 degrees Fahrenheit, and additional compatible Ebola Virus Disease symptoms Patient denies exposure to infectious person. Patient denies travel to an Ebola-affected area in the 21 days before illness onset. Initial Sepsis Screen: Does the patient meet any 2 criteria? No. Patient's initial sepsis screen is negative. Does the patient have a suspected source of infection? No. Patient's initial sepsis screen is negative. Risk Assessment: Do you want to hurt yourself or someone else? Patient reports no desire to harm self or others. Onset of symptoms was April 21, 2022. 12:25 Method Of Arrival: Ambulatory [facility] 12:25 Acuity: CLIFFORD [address] [facility] Triage Assessment: 12:27 General: Appears in no apparent distress. uncomfortable, obese, well groomed, Behavior [facility] is calm, cooperative, appropriate for age. Pain: Complains of pain in chest. Cardiovascular: Reports chest pain. 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 Historical: - Allergies: 12:27 Bactrim; [facility] 12:27 PENICILLINS; [facility] - PMHx: 12:27 Anxiety; Depression; Diabetes - IDDM; GERD; Hypertension; Pancreatitis; [facility] - PSHx: 12:27 Cholecystectomy; [facility] - Immunization history:: Adult Immunizations up to date. - Social history:: Smoking status: Patient denies any tobacco usage or history of. Screenin:45 Abuse screen: Denies threats or abuse. Denies injuries from another. Nutritional kb3 screening: No deficits noted. Tuberculosis screening: No symptoms or risk factors identified. Fall Risk None identified. Assessment: 12:45 General: Appears in no apparent distress. Behavior is calm, cooperative, Received care kb3 of pt from triage. AAO x4, pt reports ongoing intermittent left-sided chest pain x1 month, worse and constant since last night with associated "heart fluttering." Pt was seen by Dr Bonilla this morning and instructed to proceed to ED for further evaluation. Pt is mildly anxious, reports nausea at this time. Pain: Complains of pain in anterior aspect of left upper chest Pain radiates to posterior aspect of left shoulder and left tricep Pain currently is 10 out of 10 on a pain scale. Quality of pain is described as sharp, Pain began 1 month ago, worse since last night Is episodic. Cardiovascular: Reports chest pain, nausea, Heart tones present Capillary refill < 3 seconds Patient's skin is warm and dry. Rhythm is sinus rhythm. 15:00 General: See [facility] for charting. kb3 Vital Signs: 12:25 BP 148 / 97; Pulse 77; Resp 18; Temp 98.8; Pulse Ox 98% ; Weight 90.72 kg; Height 5 ft. jh5 4 in. (162.56 cm); Pain 8/10; 13:00 BP 139 / 77; Pulse 89; Resp 20; Pulse Ox 95% ; kb3 14:00 BP 123 / 80; Pulse 79; Resp 18; Pulse Ox 97% ; kb3 12:25 Body Mass Index 34.33 (90.72 kg, 162.56 cm) jh5 ED Course: 12:19 Patient arrived in ED. mr 12:19 Vin Ryan MD is Private Physician. mr 12:26 [facility] 12:26 Silver Dean MD is Attending Physician. jmm 12:27 Triage completed. jh5 12:27 Arm band placed on right wrist. jh5 12:30 Danielle Solomon, RONEN is Primary Nurse. kb3 12:45 Patient has correct armband on for positive identification. Placed in gown. Bed in low kb3 position. Call light in reach. Side rails up X 1. Client placed on continuous cardiac and pulse oximetry monitoring. NIBP monitoring applied. metal moulder's assistant on. Warm blanket given. 12:45 Inserted saline lock: 20 gauge in right antecubital area, using aseptic technique. kb3 Blood collected. 12:45 No provider procedures requiring assistance completed. Patient maintains SpO2 kb3 saturation greater than 95% on room air. 12:53 SARS RAPID Sent. kb3 12:53 Basic Metabolic Panel Sent. kb3 12:53 CBC with Diff Sent. kb3 12:53 LFT's Sent. kb3 12:53 Magnesium Sent. kb3 12:53 NT PRO-BNP Sent. kb3 12:53 PT-INR Sent. kb3 12:53 Troponin HS Sent. kb3 12:58 XRAY Chest (1 view) In Process Unspecified. EDMS 13:48 Davidson Damian MD is Hospitalizing Provider. [facility] 18:07 Patient admitted, IV remains in place. kb3 Administered Medications: 13:18 Drug: morphine 4 mg Route: IVP; Infused Over: 4 mins; Site: right antecubital; kb3 14:15 Follow up: Response: No adverse reaction; Pain is decreased kb3 13:18 Drug: Zofran (Ondansetron) 4 mg Route: IVP; Site: right antecubital; kb3 14:15 Follow up: Response: No adverse reaction; Nausea is decreased kb3 14:10 Drug: Aspirin Chewable Tablet 324 mg Route: PO; kb3 14:47 Follow up: Response: No adverse reaction kb3 15:25 Drug: Pepcid (famotidine) 20 mg Route: IVP; Site: right antecubital; kb3 16:15 Follow up: Response: No adverse reaction; Marked relief of symptoms kb3 15:25 Drug: GI Cocktail without - (Maalox Suspension 30 ml, Lidocaine Liquid 2 % 15 kb3 ml) Route: PO; 16:15 Follow up: Response: No adverse reaction; Other kb3 Medication: 12:45 VIS not applicable for this client. kb3 Outcome: 13:48 Decision to Hospitalize by Provider. calli 18:01 Admitted to Tele accompanied by tech, via wheelchair, Report called to Filomena HARDWICK kb3 18:06 Condition: stable kb3 18:06 Instructed on the need for admit. 18:19 Patient left the ED. kb3 Signatures: Dispatcher [employer] EDMS Jasiel Beckham PA PA jmm Rivera, Mary mr Rees, Jessica, RN RN jh5 Danielle Solomon, RN RN kb3 Corrections: (The following items were deleted from the chart) 13:26 13:20 General: Appears in no apparent distress. Behavior is calm, cooperative, Received kb3 care of pt from triage. AAO x4, pt reports ongoing intermittent left-sided chest pain x1 month, worse and constant since last night with associated "heart fluttering." Pt was seen by Dr Bonilla this morning and instructed to proceed to ED for further evaluation. Pt is mildly anxious, reports nausea at this time. kb3 13:26 13:20 Pain: Complains of pain in anterior aspect of left upper chest Pain radiates to kb3 posterior aspect of left shoulder and left tricep Pain currently is 10 out of 10 on a pain scale. Quality of pain is described as sharp, Pain began 1 month ago, worse since last night Is episodic, kb3 13:26 13:20 Cardiovascular: Reports chest pain, nausea, Heart tones present Capillary refill kb3 < 3 seconds Patient's skin is warm and dry. Rhythm is sinus rhythm kb3 16:40 15:30 General: See [facility] for charting. kb3 kb3 18:07 18:01 Admitted to kb3 kb3
[2022-04-21] MEDS ORDERED: ASPIRIN 81 MG CHEWABLE TABLET ONE (14:04)
[2022-04-21] MEDS ORDERED: ACETAMINOPHEN 500 MG TAB PO PRN (14:05)
--- NOTE | 2022-04-21 14:07 | P.HP ---
Certification for Inpatient Patient admitted to: Observation With expected LOS: <2 Midnights Practitioner: I am a practitioner with admitting privileges, knowledge of patient current condition, hospital course, and medical plan of care. Services: Services provided to patient in accordance with Admission requirements found in Title 42 Section 412.3 of the Code of Federal Regulations Patient History Date of Service: 04/21/22 Reason for admission: chest pain History of Present Illness: 51yo F, PMH: HTN, DM2, GERD Presents to ED for chest pain. Substernal sharp pain radiates to left arm. Ongoing for ~1 month. She reports diabetic medications were changed in February (taken off ozembic), and since then, she has ~15lb weight gain, swelling in lower extremities, fatigue. Feels chest pain worsened in last 2-3 days. She was seen by Cardiology ~1 week ago and scheduled for outpatient echo/stress next month. She was seen in Cardiology office today and advised to present to ED. In ED, labs rather unremarkable, initial troponin negative, EKG without ST-T wave changes. ED provider requests observation for ACS rule out. Allergies Penicillins Allergy (Intermediate, Verified 08/26/21 21:02) Hives/Rash sulfamethoxazole [From Bactrim] Allergy (Verified 08/26/21 21:02) Hives/Rash trimethoprim [From Bactrim] Allergy (Verified 08/26/21 21:02) Hives/Rash morphine Adverse Reaction (Mild, Verified 04/21/22 14:55) Nausea/Vomiting Home Medications: Escitalopram [Lexapro*] 1 tab PO DAILY 09/23/20 Gabapentin 1 tab PO BID 09/23/20 Metformin HCl [Glucophage] 750 mg PO DAILY 09/23/20 glyBURIDE [Glyburide] 2.5 mg PO DAILY 09/23/20 lisinopriL [Lisinopril] 5 mg PO DAILY 09/23/20 Insulin Degludec [Tresiba Flextouch U-100] 40 units SQ BEDTIME 08/26/21 Semaglutide [Ozempic] 0.5 mg SQ EVERY 7TH DAY 08/26/21 - Past Medical/Surgical History Diabetic: Yes -: DM- II, [id number] -: Pancreatitis -: GERD -: Depression/anxiety -: Insomnia -: Drug Abuse -: topher -: back surgery, fusion Psychosocial/ Personal History: Patient lives at home with family - Family History Father -: Hypertension - Social History Smoking Status: Former smoker Alcohol use: No CD- Drugs: No Caffeine use: Yes Place of Residence: Home Review of Systems 10-point ROS is otherwise unremarkable Physical Examination - Physical Exam General: Alert, In no apparent distress, Oriented x3 HEENT: EOMI, Sclerae nonicteric Neck: Supple, No LAD Respiratory: Clear to auscultation bilaterally, Normal air movement Cardiovascular: No edema, Regular rate/rhythm Gastrointestinal: Soft and benign, Non-distended, Tenderness (mild epigastric) Integumentary: No rashes, No significant lesion Neurological: Normal speech, Normal strength at 5/5 x4 extr, Normal affect - Studies Laboratory Data (last 24 hrs) 04/21/22 12:49: PT 10.1, INR 0.92 04/21/22 12:49: WBC 8.60, Hgb 13.1, Hct 38.2, Plt Count 292 04/21/22 12:49: Sodium 138, Potassium 3.6, BUN 22 H, Creatinine 0.80, Glucose 119 H, Magnesium 1.7 L, Total Bilirubin 0.5, AST 26, ALT 58, Alkaline Phosphatase 102 Assessment and Plan - Advance Directives Does patient have a Living Will: No Does patient have a Durable POA for Healthcare: No Physician Review Additional Text: Problem List Chest pain GERD DM2, non-insulin dependent HTN initial trop negative, EKG ok trend troponin echo ordered cardiology consulted confirm home meds, continue as appropriate no need for morphine / opioid medication check lipase, pt with h/o pancreatitis, slight epigastric pain - but is separate from her chest pain sensation unclear what new DM2 medication she received, but pt feels all her symptoms began after she was started on it, and stopped ozembic Code: full Dispo: home anticipate 1 day Time Spent Managing Pts Care (In Minutes): 70
[2022-04-21 15:08] VITALS: BMI 34.4
[2022-04-21] MEDS ORDERED: LIDOCAINE VISCOUS 2% SOLN 15 ML UDC ONE (15:22)
[2022-04-21] MEDS ORDERED: MAGNES/ALUMIN/SIMET 30ML UCUP ONE (15:22)
[2022-04-21] MEDS ORDERED: FAMOTIDINE 20 MG/2 ML VIAL IV ONE (15:23)
[2022-04-21] MEDS ORDERED: MAGNES/ALUMIN/SIMET 30ML UCUP PO PRN (15:37)
[2022-04-21] MEDS ORDERED: INFLUENZA VACCINE (for 6+ mo) 0.5 ML DOSE IMVAC ONE (16:00)
[2022-04-21] MEDS ORDERED: DIPHENHYDRAMINE 25 MG TAB/CAP PO PRN (19:51)
[2022-04-22 04:04] LABS: Absolute Lymphocytes (CBC) 2.1 K/uL (0.7-4.9); Hematocrit 35.7 % (36.0-45.0); Lymphocytes % 42.9 % (15.3-44.8); MCV 85.5 fL (80-100); MPV 8.4 fL (7.6-11.3); RBC Red Blood Cell Count 4.17 M/uL (3.86-4.86)
--- NOTE | 2022-04-22 06:25 | EKG ---
Test Date: 2022-04-21 Test Time: 12:36:24 Dietetic Intern: JR Krishnamurthy MEASUREMENT RESULTS: Intervals: Rate: 79 DC: 152 QRSD: 76 QT: 366 QTc: 419 [place]: P: 39 DC: 152 QRS: 28 T: 10 INTERPRETIVE STATEMENTS: Normal sinus rhythm with sinus arrhythmia Nonspecific T wave abnormality Abnormal ECG Compared to ECG 04/05/2022 12:33:35 T-wave abnormality now present Sinus tachycardia no longer present Electronically Signed On 04-22-22 06:24:13 CDT by Eze Cheng
[2022-04-22] MEDS ORDERED: FENTANYL CITR 100 MCG/2 ML ONE (07:07)
[2022-04-22] MEDS ORDERED: HEPA 1000U/500MLS 1,000 UNIT/500 ML BAG IV ONE (07:07)
[2022-04-22] MEDS ORDERED: MIDAZOLAM HCL 2 MG/2 ML INJ ONE (07:07)
[2022-04-22] MEDS ORDERED: ATROPINE SULF 1 MG/10 ML SYR IV ONE (07:08)
[2022-04-22] MEDS ORDERED: NA CHLORIDE 0.9% 0 ML IV ONE (07:08)
[2022-04-22] MEDS ORDERED: LIDOCAINE 1% MPF 30 ML VIAL ONE (07:08)
[2022-04-22] MEDS ORDERED: NA CHLORIDE 0.9% 500 ML ONE (07:19)
[2022-04-22] MEDS ORDERED: ASPIRIN EC 81 MG TAB PO SCH (09:00)
[2022-04-22] MEDS ORDERED: MORPHINE 2 MG/ML SYR IV ONE (09:01)
[2022-04-22 11:54] VITALS: BP 115/62; TEMP 97.5
[2022-04-22 12:05] VITALS: O2SAT 96
--- NOTE | 2022-04-22 13:22 | CON ---
Date of Consultation: 04/22/2022 Reason For Consultation: Unstable angina. History Of Present Illness: Ms. Young is a 51-year-old with history of hypertension, diabetes, neur opathy, hypertriglyceridemia, anxiety, depression, very strong family history for heart disease, docu mented midsternal chest pressure radiating to the left arm and the back with some shortness of breath and nausea. Denied any diaphoresis. Had an abnormal EKG. Seen by Dr. Bonilla in the office and sen t to the hospital for evaluation and heart catheterization. She denied palpitation, syncope, fever, or chills. Denied any PND, orthopnea, or pedal edema. Past Medical History: As stated above. Allergies: SHE IS ALLERGIC TO MORPHINE, PENICILLIN, AND BACTRIM. Medications: At home include insulin, Neurontin, glyburide, metformin, and lisinopril. Review of Systems: Negative. Social History: Negative. Family History: Positive for heart disease. Both of her sisters had stents in their 50s. Physical Examination: Vital Signs: Stable. Afebrile. HEENT: Negative. Neck: Supple with no bruit. Chest: Clear. Cardiac: Revealed a regular rhythm and rate. No murmurs, gallops, or rubs. Abdomen: Benign. Extremities: Revealed no clubbing, cyanosis, or edema. Diagnostic Data: She had elevated triglyceride, normal creatinine, nonspecific changes in the EKG. Impression And Plan: Unstable angina in a patient with hypertension, diabetes, strong family history of heart disease, abnormal EKG. I think we need to do a left heart catheterization to define her co ronary anatomy. The patient understands the risk and the benefits of the procedure and she agrees to proceed. Hypertension and diabetes are well controlled. She has elevated triglyceride. She probab ly should be on TriCor down the road. She has neuropathy, anxiety, and depression that are stable. NB/MODL Voice ID: [id number] Report ID: [id number]
--- NOTE | 2022-04-22 17:44 | P.DS ---
Admission Date: 04/21/22 Discharge Date: 04/22/22 Disposition: ROUTINE DISCHARGE Discharge Condition: GOOD Reason for Admission: chest pain Consultations: Cardiology - Dr. Cheng Brief History of Present Illness: 51yo F, PMH: HTN, DM2, GERD Presents to ED for chest pain. Substernal sharp pain radiates to left arm. Ongoing for ~1 month. She reports diabetic medications were changed in February (taken off ozembic), and since then, she has ~15lb weight gain, swelling in lower extremities, fatigue. Feels chest pain worsened in last 2-3 days. She was seen by Cardiology ~1 week ago and scheduled for outpatient echo/stress next month. She was seen in Cardiology office today and advised to present to ED. In ED, labs rather unremarkable, initial troponin negative, EKG without ST-T wave changes. ED provider requests observation for ACS rule out. Hospital Course: Problem List Chest pain CAD, 40% LAD stenosis GERD DM2, insulin dependent HTN Patient presented with chest pain. Troponins were trended and negative. EKG without ST-T wave changes. Cardiology was consulted. Patient was taken for cardiac catheterization which revealed 40% LAD stenosis, no intervention needed. Cardiology recommended medical optimization. Patient discharged home with aspirin 81mg daily, atorvastatin 80mg daily, and metoprolol 25mg ER daily. Vital Signs/Physical Exam: Temp Pulse Resp BP Pulse Ox 97.5 F 65 17 115/62 94 04/22/22 11:54 04/22/22 11:54 04/22/22 11:54 04/22/22 11:54 04/22/22 11:54 General: Alert, In no apparent distress, Oriented x3 HEENT: EOMI, Sclerae nonicteric Neck: Supple, No LAD Respiratory: Clear to auscultation bilaterally, Normal air movement Cardiovascular: No edema, Regular rate/rhythm, No murmurs Gastrointestinal: Soft and benign, Non-distended, No tenderness Laboratory Data at Discharge: WBC 4.90 K/uL (4.3-10.9) 04/22/22 03:54 Hgb 11.9 g/dL (12.0-15.0) L D 04/22/22 03:54 Hct 35.7 % (36.0-45.0) L 04/22/22 03:54 Plt Count 253 K/uL (152-406) 04/22/22 03:54 PT 10.1 SECONDS (9.5-12.5) 04/21/22 12:49 INR 0.92 04/21/22 12:49 Sodium 139 mmol/L (136-145) 04/22/22 03:54 Potassium 4.0 mmol/L (3.5-5.1) 04/22/22 03:54 BUN 19 mg/dL (7-18) H 04/22/22 03:54 Creatinine 0.76 mg/dL (0.55-1.3) 04/22/22 03:54 Glucose 175 mg/dL (74-106) H 04/22/22 03:54 Magnesium 1.7 mg/dL (1.8-2.4) L 04/21/22 12:49 Total Bilirubin 0.5 mg/dL (0.2-1.0) 04/21/22 12:49 AST 26 U/L (15-37) 04/21/22 12:49 ALT 58 U/L (12-78) 04/21/22 12:49 Alkaline Phosphatase 102 U/L (45-117) 04/21/22 12:49 Triglycerides 329 mg/dL (<150) H 04/21/22 12:49 Cholesterol 217 mg/dL (<200) H 04/21/22 12:49 HDL Cholesterol 57 mg/dL (40-60) 04/21/22 12:49 Cholesterol/HDL Ratio 3.81 04/21/22 12:49 Lipase 77 U/L (73-393) 04/21/22 12:49 Home Medications: Escitalopram [Lexapro*] 1 tab PO DAILY 09/23/20 Gabapentin 1 tab PO BID 09/23/20 Metformin HCl [Glucophage] 750 mg PO DAILY 09/23/20 glyBURIDE [Glyburide] 2.5 mg PO DAILY 09/23/20 lisinopriL [Lisinopril] 5 mg PO DAILY 09/23/20 Insulin Degludec [Tresiba Flextouch U-100] 40 units SQ BEDTIME 08/26/21 Atorvastatin Calcium [Lipitor] 80 mg PO BEDTIME 30 Days #30 tab 04/22/22 Metoprolol Succinate 25 mg PO DAILY 30 Days #30 tab 04/22/22 New Medications: Atorvastatin Calcium [Lipitor] 80 mg PO BEDTIME 30 Days #30 tab Metoprolol Succinate 25 mg PO DAILY 30 Days #30 tab Diet: ADA Activity: Ad víctor Followup: Vin Ryan MD [Primary Care Provider] - 1-2 Weeks (call to schedule an appointment) Time spent managing pt's care (in minutes): 45
--- NOTE | 2022-04-22 19:27 | OP ---
Date of Procedure: 04/22/2022 Surgeon: Eze Cheng MD Computer Lab Para Professional: Ms. Alberta E[place]. Procedures: Left heart catheterization, selective coronary arteriogram, left ventriculogram, left ve ntricular end-diastolic pressure measurement, and common femoral artery angiogram. History Of Present Illness: Ms. Young is 51, came in with unstable angina, has a family history of heart disease, hypertension, diabetes, dyslipidemia, brought to the catheterization laboratory today, prepped and draped in routine sterile fashion. Given Versed and fentanyl for sedation. A 6-Telugu sheath was introduced in the right common femoral artery successfully using the Seldinger technique. Then, 10 cc of xylocaine was used. Angiography there was normal. StarClose was used to close the c ase. Memo catheter left and right were used to cannulate the left main and right main respectivel y. The RCA was normal, dominant. Left main was normal, circumflex was normal. She had a 40% long p roximal LAD stenosis. The JR4 was used to cannulate the left ventricle. Left ventricular end-diasto lic pressure was 12 mmHg. Normal ejection fraction of 60% to 65% by LV-gram. No complications. Blood Loss: 5 mL. Postoperative Diagnosis: Moderate coronary artery disease. Plan: Continue medical therapy. She will go home after 2 hours of bedrest. We will see her in the office in 2 weeks. Add high dose statin to her regimen. BETO/REX Voice ID: [id number] Report ID: [id number]
--- NOTE | 2022-04-25 08:32 | ECHO ---
HEIGHT: 5 ft 7 in WEIGHT: 180 lb 0 oz DATE OF STUDY: 04/22/[address]: Davidson Damian MD 2-DIMENSIONAL: YES M.MODE: YES DOPPLER: YES COLOR FLOW: YES TDS: NO PORTABLE: YES DEFINITY: NO BUBBLE STUDY: NO DIAGNOSIS: EVALUATE FUNCTION CARDIAC HISTORY: CATHERIZATION:YES SURGERY: NO PROSTHETIC VALVE: NO PACEMAKER: NO MEASUREMENTS (cm) DIASTOLIC (NORMALS) SYSTOLIC (NORMALS) IVSd 1.1 (0.6-1.2) LA Diam 3.1 (1.9-4.0) LVEF 59% LVIDd 3.8 (3.5-5.7) LVIDs 2.6 (2.0-3.5) %FS 31% LVPWd 1.1 (0.6-1.2) Ao Diam 2.6 (2.0-3.7) 2 DIMENSIONAL ASSESSMENT: RIGHT ATRIUM: NORMAL LEFT ATRIUM: NORMAL RIGHT VENTRICLE: NORMAL LEFT VENTRICLE: NORMAL TRICUSPID VALVE: NORMAL MITRAL VALVE: NORMAL PULMONIC VALVE: NORMAL AORTIC VALVE: NORMAL PERICARDIAL EFFUSION: NONE AORTIC ROOT: NORMAL LEFT VENTRICULAR WALL MOTION: NORMAL DOPPLER/COLOR FLOW: NORMAL COMMENTS: NORMAL 2D ECHOCARDIOGRAM WITH DOPPLER. NO WALL MOTION ABNORMALITY. NO EFFUSION. TECHNOLOGIST: Luis CLARK
== END 2022-04-22 11:50 | disposition home or self-care (01) ==
LOC: ER 12:17 → ERHOLD 14:04 → 4TH 18:11
PROVIDERS: ADMIT Hospitalist; ATTEND Hospitalist
DX: I25.110 Atherosclerotic heart disease of native coronary artery with unstable angina pectoris (principal); I10 Essential (primary) hypertension; E11.40 Type 2 diabetes mellitus with diabetic neuropathy, unspecified; E78.1 Pure hyperglyceridemia; K21.9 Gastro-esophageal reflux disease without esophagitis; K85.90 Acute pancreatitis without necrosis or infection, unspecified; F41.9 Anxiety disorder, unspecified; F32.A Depression, unspecified; G47.00 Insomnia, unspecified; Z79.4 Long term (current) use of insulin; Z79.899 Other long term (current) drug therapy; Z88.0 Allergy status to penicillin; Z88.3 Allergy status to other anti-infective agents; Z88.5 Allergy status to narcotic agent; Z87.891 Personal history of nicotine dependence; Z90.49 Acquired absence of other specified parts of digestive tract; Z20.822 Contact with and (suspected) exposure to COVID-19; Z82.49 Family history of ischemic heart disease and other diseases of the circulatory system
CPT/HCPCS: 93005; 93306; 85025 ×2; 80048 ×2; 36415; 83735; 85610; 80061; 82947; 80076; 84484 ×4; 83690; 83880; 71045; 93458; 94760 ×2; 96375; 96374; 99285; 87811; C1893; Q9967; J2250; J3010; J2270; G0378 ×4; J7040; J1644; J2405; J0583